=== PATIENT | female | born 1945 | race Caucasian/White ===

== ENCOUNTER → 2020-11-12 12:30 | Outpatient (BNVA) | payer BC, SELFPAY | PROVIDERS: Visit Provider Nurse Practitioner | DX: Z20.822 Contact with and (suspected) exposure to COVID-19 (principal) | CPT/HCPCS: 87635 ==

== ENCOUNTER 2021-06-17 13:13 | Outpatient (CLI) | payer MEDICARE, SELFPAY ==
--- NOTE | 2021-06-17 13:24 | XR_ITS ---
WS: [id number] SCREENING DEXA SCAN [employer] CLINICAL INFORMATION: POSTMENOPAUSAL COMPARISON: None. FINDINGS: The L1-L4 bone mineral density measures 0.948 g/cm2. This corresponds to a T score score of -1.9 and Z score of -0.1. Left femoral neck bone mineral density measures 0.870 g/cm2. This corresponds to a T score of -1.1 an d Z score of 0.8. Right femoral neck bone mineral density measures 0.713 g/cm2. This corresponds to a T score -2.3of an d Z score of -0.5. Mean femoral neck bone mineral density measures 0.792 g/cm2. This corresponds to a T score of -1.7 an d Z score of 0.2. XR/XR DEXA axial skeleton* [id number] IMPRESSION: Osteopenia Patient's FRAX calculated 10 year probability for major osteoporotic fracture i s 17.0 % and osteoporotic hip fracture is 5.9%.
== END 2021-06-17 13:14 | disposition home or self-care (01) ==
PROVIDERS: Visit Provider Nurse Practitioner
DX: Z78.0 Asymptomatic menopausal state (principal); M85.80 Other specified disorders of bone density and structure, unspecified site
CPT/HCPCS: 77080

== ENCOUNTER 2022-03-24 10:33 | Outpatient (CLI) | payer MEDICARE, SELFPAY ==
--- NOTE | 2022-03-24 10:40 | MM_ITS ---
WS: [id number] BILATERAL SCREENING DIGITAL BREAST TOMOSYNTHESIS MAMMOGRAM WITH CAD HISTORY: SCREENING COMPARISON: 09/21/2016 and 08/28/2013 Bilateral CC and MLO views with tomosynthesis and synthetic mammography submitted. Computer aided det ection analyzed. Breast composition: There are scattered areas of fibroglandular density. No suspicious masses, microc alcifications or architectural distortion. Asymmetries in each breast are stable. MM/[place] [id number] IMPRESSION: BI-RADS: 2-Benign FOLLOW UP: 1 Year Follow-up
== END 2022-03-24 10:34 | disposition home or self-care (01) ==
LOC: RAD 10:34
PROVIDERS: Visit Provider Physician Assistant
DX: Z12.31 Encounter for screening mammogram for malignant neoplasm of breast (principal)
CPT/HCPCS: 77063; 77067

== ENCOUNTER 2023-12-17 17:10 | Inpatient (IN) | payer MEDICARE, SELFPAY ==
[2023-12-17] VITALS (36 sets, daily range): BP systolic 98–215; BP diastolic 47–117; PULSE 75–99; RESP 16–32; TEMP 34.4–36; O2SAT 96–100; BMI 21.0
--- NOTE | 2023-12-17 17:18 | XRR_ITS ---
PROCEDURE INFORMATION: Exam: XR Chest Exam date and time: 12/17/2023 5:30 PM Age: 78 years old Clinical indication: Cough and dyspnea; Patient HX: Respiratory distress; Found unresponsive TECHNIQUE: Imaging protocol: Radiologic exam of the chest. Views: 1 view. COMPARISON: No relevant prior studies available. FINDINGS: Lungs: Unremarkable. No consolidation. Pleural spaces: Unremarkable. No pleural effusion. No pneumothorax. Heart/Mediastinum: Unremarkable. No cardiomegaly. Vasculature: The aorta is tortuous. Bones/joints: Unremarkable. XR/XR chest 1V portable [id number] IMPRESSION: No acute findings
--- NOTE | 2023-12-17 17:18 | CTR_ITS ---
PROCEDURE INFORMATION: Exam: CT Head Without Contrast Exam date and time: 12/17/2023 5:25 PM Age: 78 years old Clinical indication: Coma or unconsciousness; Additional info: Nonresponsive TECHNIQUE: Imaging protocol: Computed tomography of the head without contrast. Radiation optimization: All CT scans at this facility use at least one of these dose optimization techniques: automated exposure control; mA and/or kV adjustment per patient size (includes targeted exams where dose is matched to clinical indication); or iterative reconstruction. Other technique: STROKE PROTOCOL was implemented. COMPARISON: No relevant prior studies available. RADIATION DOSE METRICS: Total DLP (mGy-cm): 971.06 FINDINGS: Brain: There is age-related volume loss. There is mild periventricular white matter lucency consistent with mild chronic microvascular disease. There is no infarct. There is no hemorrhage or extra-axial collection. There is no mass. There is no cerebral edema. Cerebral ventricles: Ventricular size is proportionate to volume loss. Paranasal sinuses: Visualized sinuses are unremarkable. No fluid levels. Mastoid air cells: Visualized mastoid air cells are well aerated. Bones/joints: Unremarkable. No acute fracture. Soft tissues: Unremarkable. CT/CT head wo con* [id number] IMPRESSION: 1. Mild chronic microvascular disease. 2. No acute intracranial lesion or injury. ASSESSMENT: ASPECTS ([place] Stroke Program Early CT Score) is 10.
--- NOTE | 2023-12-17 17:19 | ED_ITS ---
HPI - General Adult 2 General: Chief complaint: Altered Mental Status Stated complaint: AMS; SOB Time Seen by Provider: 12/17/23 17:12 Source: EMS Mode of arrival: EMS History of Present Illness: 78-year-old female presents emergency ro om obtunded. EMS was called for a nonresponsive female in the bed who was short of breath on arrival there they found her with a white powder caked around her mouth in the pattern of a mask although she did not have a mask of any type on is also on the palm of her right hand. She was unresponsive except with aggressive painful stimuli and then only groaned. Her last known well according to EMS was at 11:00 this morning she presented here at 1710 6 hours and 10 minutes later we do not have family available to confirm initially. Review of Systems 2 General: Reports: ROS unobtainable due to medical condition and ROS unobtainable due to mental status PFS ED 2 PFSH: Medical History (Updated 12/17/23 @ 18:35 by Jerry Potter DO) Hypertension Diabetes mellitus Physical Exam 2 HENMT: COMMON NORMALS: normocephalic, atraumatic and hearing grossly normal bilaterally HEAD & SCALP: normocephalic and atraumatic Resp: COMMON NORMALS: normal respiratory effort, No retractions, No use of accessory muscles and clear to auscultation bilaterally AUSCULTATION: clear to auscultation bilaterally Cardio: COMMON NORMALS: regular rate, regular rhythm and No murmurs present (Cardio) RATE: regular rate RHYTHM: regular rhythm GI: COMMON NORMALS: Soft to palpation and No hepatosplenomegaly present A USCULTATION: Yes normoactive bowel sounds PALPATION: Yes Soft to palpation, No Tenderness to palpation present (GI), No Guarding due to palpation present (GI) and Yes No hepatosplenomegaly present Extremity: COMMON NORMALS: normal to inspection, capillary refill normal, no clubbing, cyanosis or edema, no calf tenderness and no pedal edema Neuro: PAMELA COMA SCALE: document GCS findings [place] coma scale eye opening: None [place] coma scale verbal response: None Pamela coma scale motor response: Extension Pamela coma scale total score: 4 Skin: COMMON NORMALS: no rashes or lesions noted GENERAL SKIN EXAM: no rashes or lesions noted Course 2 Vital Signs: Vital signs: Vital Signs Temperature 96.1 F L 12/17/23 17:11 Pulse Rate 96 12/17/23 17:11 Respiratory Rate 16 12/17/23 18:12 Blood Pressure 210/110 12/17/23 17:40 Pulse Oximetry 96 12/17/23 17:11 Oxygen Delivery Me thod Non-Rebreather 12/17/23 17:11 Oxygen Flow Rate 10 12/17/23 17:11 Fraction of Inspir ed Oxygen 100 12/17/23 18:12 MDM - General Adult Medical Decision Making Patient is completely obtunded. GCS of 4 discussed with the family they do want her intubated and [place] is a full code patient was intubated using vecuronium and etomidate and then started on drips of fentanyl and Versed. She did require push dose propofol shortly after intubation. Blood pressure improved slightly with hydralazine and then again once the drips were started however she remained significant hypertensive and she was started on nicardipine. She does oxygenate fairly well and her blood gas was normal. Patient intubated because of her GPS and evidence of her not controlling her airway she was coughing and sputtering multiple times prior to intubation. No complications with intubation discussed with hospitalist will admit she has been started on Vanco and Zosyn. Sputum cultures were aspirated through via the ET tube. We did note nearly 1400 mL urine output after placement of French. Lab Data I reviewed the patient's lab results. 12/17/23 16:58 12/17/23 16:[address] 12/17/23 17:18 IMPRESSION: 1. Mild chronic microvascular disease. 2. No acute intracranial lesion or injury. ASSESSMENT: ASPECTS ([place] Stroke Program Early CT Score) is 10. Laboratory Results WBC 24.90 10^3/uL (3.29-11.43) H 12/17/23 16:58 RBC 5.20 10^6/uL (3.85-5.65) 12/17/23 16:58 Hgb 16.10 g/dL (11.27-16.99) 12/17/23 16:58 Hct 47.4 % (36-47) H 12/17/23 16:58 MCV 91.2 fl (85-98) 12/17/23 16:58 MCH 31.0 pg (27-33) 12/17/23 16:58 MCHC 34.0 g/dL (30-55) 12/17/23 16:58 RDW 12.4 % (12.1-15.1) 12/17/23 16:58 Plt Count 285 10^3/cmm (157-399) 12/17/23 16:58 MPV 10.6 fL (7.4-10.4) H 12/17/23 16:58 Neut % (Auto) 92.0 % 12/17/23 16:58 Lymph % (Auto) 3.6 % 12/17/23 16:58 [place] % (Auto) 3.3 % 12/17/23 16:58 Eos % (Auto) 0.0 % 12/17/23 16:58 Baso % (Auto) 0.4 % 12/17/23 16:58 Neut # (Auto) 22.90 10^3/uL (1.8-7.7) H 12/17/23 16:58 Lymph # (Auto) 0.9 10^3/uL (0.8-4.8) 12/17/23 16:58 [place] # (Auto) 0.8 10^3/uL (0.2-0.9) 12/17/23 16:58 Eos # (Auto) 0.0 10^3/uL (0.0-0.8) 12/17/23 16:58 Baso # (Auto) 0.1 10^3/uL (0.0-0.1) 12/17/23 16:58 Nucleated RBC % (auto) 0 % 12/17/23 16:58 Nucleated RBCs # 0.0 /100WBC 12/17/23 16:58 Specimen Type Arterial 12/17/23 17:06 Sample Site Radial, right 12/17/23 17:06 ABG pH 7.37 (7.35-7.45) 12/17/23 17:06 ABG pCO2 35.2 mmHg (35-45) 12/17/23 17:06 ABG pO2 86.2 mmHg (80.0-100.0) 12/17/23 17:06 ABG PO2/FiO2 Ratio 0 12/17/23 17:06 ABG HCO3 20.4 mmol/L (22-26) L 12/17/23 17:06 ABG O2 Saturation 97.3 12/17/23 17:06 ABG Base Excess -4.1 mmol/L (-2.0-2.0) L 12/17/23 17:06 Rell Test Pos 12/17/23 17:06 A-a O2 Gradient 75.3 mmHg (5-10) H 12/17/23 17:06 Hematocrit 50.8 % (37-47) H 12/17/23 17:06 Hgb O2 Saturation 95.8 % (95-100) 12/17/23 17:06 Carboxyhemoglobin 0.9 %THgb (0.4-20.1) 12/17/23 17:06 Methemoglobin 0.7 % (0.4-1.5) 12/17/23 17:06 Total Hemoglobin 16.6 g/dL (12-16) H 12/17/23 17:06 Sodium 132.0 mmol/L (131-143) 12/17/23 17:06 Potassium 4.1 mmol/L (3.5-5.0) 12/17/23 17:06 Glucose 288.0 mg/dL (70-115) H 12/17/23 17:06 Ionized Calcium 1.1 mmol/L (1.1-1.4) 12/17/23 17:06 O2 Delivery Device Nrb 12/17/23 17:06 O2 Liters/Min 10.0 % 12/17/23 17:06 FiO2 100.0 % 12/17/23 17:06 Journeyman Sheet Metal Worker ID [place] 12/17/23 17:06 Sodium 130 mmol/L (136-145) L 12/17/23 16:58 Potassium 4.1 mmol/L (3.5-5.1) 12/17/23 16:58 Chloride 92 mmol/L (98-107) L 12/17/23 16:58 Carbon Dioxide 20 mmol/L (22-29) L 12/17/23 16:58 Anion Gap 22.1 (5-19) H 12/17/23 16:58 BUN 20 mg/dL (8-23) 12/17/23 16:58 Creatinine 1.0 mg/dL (0.5-0.9) H 12/17/23 16:58 GFR Calculation Not Reportable 12/17/23 16:58 Glucose 351 mg/dL (65-115) H 12/17/23 16:58 Calculated Osmolality 287 mOsm/kg (285-295) 12/17/23 16:58 Lactic Acid 3.1 mmol/L (0.5-2.2) H 12/17/23 16:58 Calcium 9.1 mg/dL (8.5-10.5) 12/17/23 16:58 Magnesium 2.0 mg/dL (1.7-2.3) 12/17/23 16:58 Total Bilirubin 0.9 mg/dL (0.15-1.2) 12/17/23 16:58 AST 27 U/L (0-32) 12/17/23 16:58 ALT 20 U/L (0-33) 12/17/23 16:58 Alkaline Phosphatase 103 U/L (35-105) 12/17/23 16:58 Creatine Kinase 81 U/L (26-192) 12/17/23 16:58 Troponin T Baseline 13 ng/L (0-10) H 12/17/23 16:58 Total Protein 7.4 g/dL (6.6-8.7) 12/17/23 16:58 Albumin 4.3 g/dL (3.5-5.2) 12/17/23 16:58 Globulin 3.1 g/dL (1.3-4.6) 12/17/23 16:58 Lipase 49 U/L (13-60) 12/17/23 16:58 Urine Color Colorless (Yellow) 12/17/23 17:35 Urine Appearance Clear (CLEAR) 12/17/23 17:35 Urine pH 7 (5-7) 12/17/23 17:35 Ur Specific [place] 1.010 (1.005-1.030) 12/17/23 17:35 Urine Protein 1+ (Negative) H 12/17/23 17:35 Urine Glucose (UA) 2+ (Normal) H 12/17/23 17:35 Urine Ketones 1+ (Negative) H 12/17/23 17:35 Urine Blood 3+ (Negative) H 12/17/23 17:35 Urine Nitrate Negative (Negative) 12/17/23 17:35 Urine Bilirubin Neg (Negative) 12/17/23 17:35 Urine Urobilinogen Norm mg/dL (Negative) 12/17/23 17:35 Ur Leukocyte Esterase Negative (Negative) 12/17/23 17:35 Urine RBC 25-40 /hpf (0-2) H 12/17/23 17:35 Urine WBC None /hpf (0-5) 12/17/23 17:35 Ur Squamous Epith Cells None /hpf (0-5) 12/17/23 17:35 Amorphous Sediment Not Reportable 12/17/23 17:35 Urine Bacteria Trace /hpf (NONE) 12/17/23 17:35 Serum Ketones Negative (Negative) 12/17/23 16:58 All radiology interpretation(s) finalized by discharge Critical Care Time 2 Critical Care Time: Critical Care Time: Yes Total Critical Care Time: 40 Attestation: The high probability of a clinically significant, sudden or life threatening deterioration of the patient's cardiovascular respiratory system(s) required my full and direct attention, intervention and personal management. The critical care time is as shown. This time is in addition to time spent performing any reported procedures but includes the following: [x] Data and vital sign review and interpretation [x] Patient assessment, examination and intervention [x] Documentation [x] Medication orders and management Discharge Plan Discharge Patient Disposition: Admitted As Inpatient Admit Provider: Evelia Garcia Clinical Impression: Diabetes mellitus, Sepsis, Aspiration pneumonia, Encephalopathy, Acute urinary retention Condition: Stable Coding Level of Care Code ED Shredding Machine Tender for Giacomo Mckenzie
--- NOTE | 2023-12-17 17:19 | ECG_ITS ---
[facility] Test Date: 2023-12-17 Pat Name: Lety Singh Department: Room: [facility]08 Gender: Female Activity Therapy Specialist: : 1945 Requested By: Jerry Morgan Order Number: [id number] Radha MD: Roberto Metzger M.D. Measurements Intervals [place] Rate: 95 P: 75 SC: 160 QRS: 67 QRSD: 85 T: 75 QT: 401 QTc: 505 Interpretive Statements SINUS RHYTHM MODERATE ST DEPRESSION [0.05+ mV ST DEPRESSION] No previous ECG available for comparison Electronically Signed On 12-18-2023 20:47:48 CDT by Roberto Metzger M.D. [email or web address] Biotechmer[facility] river oaksCono-Ckettering health miamisburgCognitum/store/Ov/[id number]
[2023-12-17 17:22] LABS: ABG PCO2 35.2 mmHg (35-45); ABG PH Result 7.37 (7.35-7.45); Alveolar-Arterial Oxygen Gradi 75.3 mmHg (5-10); Arterial Blood Gas Hematocrit 50.8 % (37-47); Base Excess ABG -4.1 mmol/L (-2.0-2.0); Blood Gas Allen Test Pos; Blood Gas Operator Identificat MONRO; Blood Gas Sample Site Radial, right; Blood Gas Sample Type Arterial; Carboxyhemoglobin 0.9 %THgb (0.4-20.1); HCO3 ABG 20.4 mmol/L (22-26); HGB O2 Sat 95.8 % (95-100); Ionized Calcium Level - ABG 1.1 mmol/L (1.1-1.4); Methemoglobin 0.7 % (0.4-1.5); Oxygen Device NRB; Oxygen Saturation ABG 97.3; PO2 ABG 86.2 mmHg (80.0-100.0); PO2 FiO2 Ratio Arterial Blood 0; Potassium Level - ABG 4.1 mmol/L (3.5-5.0); Total Hemoglobin 16.6 g/dL (12-16)
[2023-12-17 17:32] LABS: Basophils # 0.1 10^3/uL (0.0-0.1); Basophils % 0.4 %; Hematocrit 47.4 % (36-47); Lymphocytes # 0.9 10^3/uL (0.8-4.8); Lymphocytes % 3.6 %; Mean Corpuscular Volume 91.2 fl (85-98); Mean Platelet Volume 10.6 fL (7.4-10.4); Monocytes # 0.8 10^3/uL (0.2-0.9); Monocytes % 3.3 %; Nucleated Red Blood Cells % 0 %; Platelet Count 285 10^3/cmm (157-399); Red Cell Distribution Width 12.4 % (12.1-15.1)
[2023-12-17 17:48] LABS: Ketone (Acetest) Serum Negative (Negative)
[2023-12-17] MEDS: hyDRALAzine 20 mg/mL INJ 1 mL 5 MG IVP (17:52)
[2023-12-17 17:53] LABS: Lactic Sepsis W/Reflex 3.1 mmol/L (0.5-2.2)
[2023-12-17 17:56] LABS: Alanine Aminotransferase 20 U/L (0-33); Albumin Level 4.3 g/dL (3.5-5.2); Alkaline Phosphatase 103 U/L (35-105); Anion Gap 22.1 (5-19); Blood Urea Nitrogen 20 mg/dL (8-23); Calcium 9.1 mg/dL (8.5-10.5); Carbon Dioxide 20 mmol/L (22-29); Chloride 92 mmol/L (98-107); Creatine Phosphokinase 81 U/L (26-192); Globulin 3.1 g/dL (1.3-4.6); Glucose 351 mg/dL (65-115); Lipase 49 U/L (13-60); Osmolality Calculated 287 mOsm/kg (285-295); Sodium 130 mmol/L (136-145); Total Bilirubin 0.9 mg/dL (0.15-1.2); Total Protein 7.4 g/dL (6.6-8.7)
[2023-12-17 17:57] LABS: Aspartate Amino Transferase 27 U/L (0-32); Potassium 4.1 mmol/L (3.5-5.1)
[2023-12-17 17:58] LABS: Troponin(5th) Baseline 13 ng/L (0-10)
[2023-12-17 18:01] LABS: Add Urine Microscopic? YES; Bilirubin Urine Neg (Negative); Blood Urine 3+ (Negative); Glucose Urine UA 2+ (Normal); Ketones Urine 1+ (Negative); Leukocyte Esterase Urine Negative (Negative); Nitrate Urine Negative (Negative); Protein Urine 1+ (Negative); Urine Appearance Clear (CLEAR); Urine Color Colorless (Yellow); Urobilinogen Urine Norm (Negative); pH Urine 7 (5-7)
[2023-12-17 18:02] LABS: Add Urine Culture? Yes; Bacteria Urine TRACE /hpf; RBC Urine 25-40 /hpf (0-2)
[2023-12-17] MEDS: etomidate 2 mg/mL INJ SDV 10 mL 20 MG IVP (18:02)
--- NOTE | 2023-12-17 18:05 | XRR_ITS ---
PROCEDURE INFORMATION: Exam: XR Chest Exam date and time: 12/17/2023 6:10 PM Age: 78 years old Clinical indication: Device placement; Ett placement (vent status); Patient HX: Check S/P et and og placement; Additional info: Post intubation TECHNIQUE: Imaging protocol: Radiologic exam of the chest. Views: 1 view. COMPARISON: CR (CHEST, ) 12/17/2023 5:30 PM FINDINGS: Tubes, catheters and devices: The tip of the endotracheal tube is appropriately positioned 4 cm above the fco. The tip of the NG tube is at the level of the GE junction and should be advanced. Lungs: Unremarkable. No consolidation. Pleural spaces: Unremarkable. No pleural effusion. No pneumothorax. Heart/Mediastinum: Unremarkable. No cardiomegaly. Bones/joints: Unremarkable. XR/XR chest 1V portable [id number] IMPRESSION: 1. Endotracheal tube appropriately positioned 4 cm above fco. 2. Tip of NG tube at GE junction and should be advanced
[2023-12-17] MEDS: fentaNYL 1,000 MCG/100 ML BAG 2.5 MCG IV (18:06)
[2023-12-17] MEDS: midazolam hcl 100 MG/100 ML BAG IV (18:06)
[2023-12-17] MEDS: vecuronium 10 mg SDV IVP (18:10)
[2023-12-17] MEDS: propofol 10 mg/mL SDV 20 mL 100 MG IVP (18:26)
--- NOTE | 2023-12-17 18:27 | PC.NURSE ---
Medication Verification: 20mg of Etomidate @1802 and 10mg of Vecuronium @1803 verified with Melony Castillo RN.
--- NOTE | 2023-12-17 18:31 | P.HP_ITS ---
Providers/Chief Complaint 2 Admitting Physician: Evelia Garcia MD Chief Complaint: AMS; SOB History of Present Illness Lety Singh is a 78-year-old female with history of diabetes and hypertension was brought in by EMS for unresponsiveness at home. As per the ER physician, son was present at bedside and gave history that she was found at the edge of the bed unresponsive and covered with questionable vomit. She was last seen normal at 11 AM this morning by the son. He also reports that she is very active with her daily chores. He denied any recent history of fever cold cough chest pain shortness of breath nausea vomiting or diarrhea. On arrival in ER she was found to be breathless and Mouth and face and right hand was covered with white powder like material. As per the ER physician she was likely covered with vomit and had questionable aspiration. She was found to have a WBC count of 24.9 with left shift Lactate of 3.1 First set of troponins negative ABG 7.37/35/86/97% on nonrebreather, has anion gap metabolic acidosis She was attended and nonresponsive, hence with the family consent she was intubated and mechanically ventilated. She is on fentanyl and propofol drip. CT head showed no evidence of stroke Chest x-ray was mild bilateral pulmonary congestion, but no evidence of pneumonia Review of Systems 2 General: Reports: ROS unobtainable due to mental status Medications/Allergies Home Medications Medication Instructions Recorded Confirmed Last Taken Type No Known Home Medications 11/12/20 11/12/20 Unknown History Allergies Allergy/AdvReac Type Severity Reaction Status Date / Time No Known Allergies Allergy Verified 03/05/22 12:14 PFSH Acute 2 PFSH: Medical History Hypertension Diabetes mellitus Vitals/I&O/Wt Last Vital Signs Temp 96.1 F L 12/17/23 17:11 Pulse 96 12/17/23 17:11 Resp 16 12/17/23 18:12 BP 210/110 12/17/23 17:40 Pulse Ox 96 12/17/23 17:11 O2 Del Method Non-Rebreather 12/17/23 17:11 O2 Flow Rate 10 12/17/23 17:11 FiO2 100 12/17/23 18:12 Weight last 48 hrs Weight 61.235 kg Physical Exam 2 Narrative: She is obtunded and unresponsive, on mechanical ventilator. Chest clear to auscultation bilaterally Cardiovascular normal heart sounds no murmurs Abdomen soft non distended normal bowel sounds Extremities no edema noted bilaterally Data 12/17/23 16:58 12/17/23 16:58 Micro: Microbiology 12/17/23 18:10 Blood Culture - Preliminary Blood SPECIMEN COLLECTED 12/17/23 18:10 Blood Culture - Preliminary Blood SPECIMEN COLLECTED A&P Assessment and plan (1) Acute urinary retention: (2) Encephalopathy: (3) Aspiration pneumonia: (4) Sepsis: (5) Hypertension: (6) Diabetes mellitus: Plan 78-year-old female with history of hypertension and diabetes was brought in by EMS for unresponsiveness at home, covered in white powdery material and was found to have leukocytosis with left shift and lactate of 3.1 Likely secondary to aspiration pneumonia/severe sepsis Admit to ICU for continuous cardiopulmonary monitoring 1. Respiratory- Continue respiratory support with mechanical ventilator Continue fentanyl and propofol drip for sedation as per protocol 2. Cardiovascular- Hemodynamically stable for now on nicardipine drip to keep systolic blood pressure 1 40-1 50 IV fluid normal saline at 100 mm/h. Follow-up serial troponins 3. ID-in view of aspiration pneumonia and sepsis Will continue with IV vancomycin 1 g every 12 IV Zosyn 3.375 g every 8 hours. Follow-up urine culture 4. Nephrology Stable, will continue to monitor labs 5. Prophylaxis- GI with IV Pepcid 20 mg every 12 hours DVT with subcutaneous Lovenox 40 mg daily 6. Family not available to discuss the CODE STATUS but as per ER physician she is full code for now. Attestations 2 Medical Necessity Statement*: She needs continued hospitalization for more than 2 midnights for severe sepsis aspiration pneumonia post intubation and cardiopulmonary monitoring in ICU. She also needs IV fluids IV antibiotics Time Spent in Patient Care: 45 minutes Coding Level of Care Code Acute Code for [facility] Fwd Diagnoses Acute urinary retention R33.8 Encephalopathy G93.40 Aspiration pneumonia J69.0 Sepsis A41.9 Hypertension I10 Diabetes mellitus E11.9 Time Spent (min) 45
[2023-12-17] MEDS: piperacillin-tazobactam 3.375 GM in sodium chloride 0.9% (plus) 50 ML IV (18:39)
[2023-12-17] MEDS: nicardipine 20 MG/200 ML PREMIX 50 MG IV (18:48)
--- NOTE | 2023-12-17 18:49 | XRR_ITS ---
PROCEDURE INFORMATION: Exam: XR Chest Exam date and time: 12/17/2023 6:50 PM Age: 78 years old Clinical indication: Device placement; Ng tube; Additional info: Og adjustment TECHNIQUE: Imaging protocol: Radiologic exam of the chest. Views: 1 view. COMPARISON: CR (CHEST, ) 12/17/2023 6:10 PM FINDINGS: Tubes, catheters and devices: The endotracheal tube remains appropriately positioned. The NG tube has been advanced into the stomach and is appropriately positioned. Lungs: Overlying leads obscure right perihilar region. Possible area of consolidation in this area. Pleural spaces: Unremarkable. No pleural effusion. No pneumothorax. Heart/Mediastinum: Unremarkable. No cardiomegaly. Bones/joints: Unremarkable. XR/XR chest 1V portable [id number] IMPRESSION: 1. NG tube advanced into stomach. 2. Question right perihilar consolidation obscured by overlying leads.
--- NOTE | 2023-12-17 18:53 | PC.NURSE ---
This tech placed a trivedi catheter in at 1800, secured to left upper leg. Urine was not emptied until 1850 which resulted in 1225 mL of urine output. Bag secured below bed railings.
[2023-12-17] MEDS: vancomycin 1,000 MG in sodium chloride 0.9% 250 ML 250 MG IV (19:12)
[2023-12-17 19:16] LABS: Reflex Lactate Order REFLEX LACTIC ORDERD
--- NOTE | 2023-12-17 19:16 | PC.NURSE ---
Pt. was started on nicardipine briefly. Nicardipine stopped after blood pressure dropped quickly.
[2023-12-17 19:23] LABS: Troponin 5 2HR 15.68 ng/L (0-10); Troponin 5 2HR Delta 2.68 ABS# (0-10)
--- NOTE | 2023-12-17 20:00 | PC.NURSE ---
Immunizations Edyta Chamberlain, stated patient refused vaccinations for adventism reasons.
[2023-12-17] MEDS: sodium chloride 0.9% 1,000 ML 100 ML IV (20:17)
[2023-12-17] MEDS: famotidine 20 mg/2 mL INJ IVP (20:17)
[2023-12-17 20:43] LABS: Glucose Point of Care 350 mg/dL (70-110)
[2023-12-17 21:05] LABS: Lactic Acid level (Lactate) 3.6 mmol/L (0.5-2.2)
--- NOTE | 2023-12-17 21:19 | PC.NURSE ---
Prolonged QR EKG performed by RT resulted critical with a QT interval of 0.48. Patient remaining in sinus rhythm with no pvcs, pacs noted. Dr. Edwards notified.
[2023-12-17 21:20] LABS: ABG PCO2 37.4 mmHg (35-45); ABG PH Result 7.27 (7.35-7.45); Alveolar-Arterial Oxygen Gradi 15.1 mmHg (5-10); Arterial Blood Gas Hematocrit 47.3 % (37-47); Base Excess ABG -9.3 mmol/L (-2.0-2.0); Blood Gas Operator Identificat JB; Blood Gas Sample Site Brachial, left; Blood Gas Sample Type Arterial; Blood Gas Tidal Volume 0.35; Carboxyhemoglobin 0.6 %THgb (0.4-20.1); HCO3 ABG 16.9 mmol/L (22-26); HGB O2 Sat 99.3 % (95-100); Ionized Calcium Level - ABG 1.1 mmol/L (1.1-1.4); Methemoglobin 0.7 % (0.4-1.5); Oxygen Device VENT; Oxygen Saturation ABG > 100.0; PO2 FiO2 Ratio Arterial Blood 0; Potassium Level - ABG 4.3 mmol/L (3.5-5.0); Total Hemoglobin 15.4 g/dL (12-16)
--- NOTE | 2023-12-17 21:55 | PC.NURSE ---
Patient's temperature was 94.0 rectally, elisa hugger blanket, along with heated blankets and a rectal thermometer probe were placed. Patient's blood sugar was 350 and OG noted to have ~100mL of output with low intermittent suction. Dr. Edwards notified of the above findings and gave telephone orders to recheck blood glucose in 2 hours.
--- NOTE | 2023-12-17 22:34 | PC.NURSE ---
Physician Communication Dr. Edwards at bedside. Verbal orders received to discontinue maintenance NS fluid and to start subq medium dose sliding scale Q6HR now. See MAR for details.
[2023-12-17 22:46] LABS: Glucose Point of Care 386 mg/dL (70-110)
[2023-12-17] MEDS: insulin lispro 100 unit/1 mL SUBCUT (22:54)
--- NOTE | 2023-12-17 23:18 | ECG_ITS ---
[facility] Test Date: 2023-12-17 Pat Name: Lety Snigh Department: Room: [facility]08 Gender: Female News Agent: : 1945 Requested By: Jerry Morgan Order Number: [id number] Radha MD: Roberto Metzger M.D. Measurements Intervals [place] Rate: 78 P: 79 [place]: 170 QRS: 73 QRSD: 90 T: 70 QT: 488 QTc: 557 Interpretive Statements SINUS RHYTHM PROLONGED QT INTERVAL CRITICAL TEST RESULT Compared to ECG 12/17/2023 17:19:21 Prolonged QT interval now present ST (T wave) deviation no longer present Electronically Signed On 12-18-2023 20:56:51 CDT by Roberto Metzger M.D. [email or web address].Conductormemorial hospital at gulfportGlobal Bay Mobilekindred hospital lima.[email or web address]/store/[id number]
[2023-12-17 23:22] LABS: Troponin 5 6HR 18.92 ng/L (0-10); Troponin 5 6HR Delta 5.92 ng/L (0-12)
--- NOTE | 2023-12-17 23:22 | ECG_ITS ---
[facility] Test Date: 2023-12-17 Pat Name: Lety Singh Department: Room: [facility]08 Gender: Female Neuro Ophthalmologist: : 1945 Requested By: Jerry Morgan Order Number: [id number] Radha MD: Roberto Metzger M.D. Measurements Intervals [place] Rate: 75 P: 81 [place]: 167 QRS: 73 QRSD: 79 T: 69 QT: 382 QTc: 427 Interpretive Statements SINUS RHYTHM NONSPECIFIC T-WAVE ABNORMALITY Prolonged QTc of 550 ms Compared to ECG 12/17/2023 21:02:33 No significant chest Electronically Signed On 12-18-2023 20:58:32 CDT by Roberto Metzger M.D. [id number]
[2023-12-18] VITALS (76 sets, daily range): BP systolic 86–216; BP diastolic 48–124; PULSE 63–100; RESP 10–20; TEMP 36.2–38.4; O2SAT 95–100; BMI 21.4
[2023-12-18 01:24] LABS: Glucose Point of Care 331 mg/dL (70-110)
[2023-12-18] MEDS: chlorhexidine gluconate 4% Btl 118 mL 1 APPLIC TOPICAL (02:59)
[2023-12-18 03:56] LABS: Glucose Point of Care 359 mg/dL (70-110)
[2023-12-18 03:59] LABS: Basophils # 0.1 10^3/uL (0.0-0.1); Basophils % 0.2 %; Hematocrit 45.2 % (36-47); Lymphocytes # 0.7 10^3/uL (0.8-4.8); Lymphocytes % 2.7 %; Mean Corpuscular HGB Conc 33.2 g/dL (30-55); Mean Corpuscular Hemoglobin 30.7 pg (27-33); Mean Corpuscular Volume 92.4 fl (85-98); Mean Platelet Volume 10.5 fL (7.4-10.4); Monocytes # 1.2 10^3/uL (0.2-0.9); Monocytes % 4.6 %; Neutrophils # 23.76 10^3/uL (1.8-7.7); Neutrophils % 91.5 %; Nucleated Red Blood Cells % 0 %; Platelet Count 260 10^3/cmm (157-399); Red Blood Count 4.89 10^6/uL (3.85-5.65); Red Cell Distribution Width 12.7 % (12.1-15.1); White Blood Count 25.97 10^3/uL (3.29-11.43)
[2023-12-18] MEDS: insulin lispro 100 unit/1 mL SUBCUT ×2 (03:59→11:31)
[2023-12-18 04:11] LABS: INR 1.02 (0.8-1.2)
[2023-12-18 04:17] LABS: Alanine Aminotransferase 17 U/L (0-33); Albumin Level 3.8 g/dL (3.5-5.2); Alkaline Phosphatase 83 U/L (35-105); Anion Gap 18.3 (5-19); Aspartate Amino Transferase 20 U/L (0-32); Blood Urea Nitrogen 23 mg/dL (8-23); Calcium 8.5 mg/dL (8.5-10.5); Carbon Dioxide 19 mmol/L (22-29); Chloride 101 mmol/L (98-107); Creatinine Clr Calc Pharmacy 37.4082; Globulin 2.7 g/dL (1.3-4.6); Glucose 368 mg/dL (65-115); Lactic Sepsis W/Reflex 2.5 mmol/L (0.5-2.2); Osmolality Calculated 297 mOsm/kg (285-295); Potassium 4.3 mmol/L (3.5-5.1); Sodium 134 mmol/L (136-145); Total Bilirubin 1.1 mg/dL (0.15-1.2); Total Protein 6.5 g/dL (6.6-8.7)
[2023-12-18 04:23] LABS: Procalcitonin 4.31 ng/mL (0-0.5)
[2023-12-18 04:56] LABS: ABG PCO2 36.3 mmHg (35-45); ABG PH Result 7.37 (7.35-7.45); Alveolar-Arterial Oxygen Gradi 7.6 mmHg (5-10); Arterial Blood Gas Hematocrit 48.1 % (37-47); Base Excess ABG -3.7 mmol/L (-2.0-2.0); Blood Gas Operator Identificat JB; Blood Gas Sample Site Brachial, left; Blood Gas Sample Type Arterial; Blood Gas Tidal Volume 0.35; Carboxyhemoglobin 0.8 %THgb (0.4-20.1); HGB O2 Sat 98.6 % (95-100); Ionized Calcium Level - ABG 1.1 mmol/L (1.1-1.4); Methemoglobin 0.7 % (0.4-1.5); Oxygen Device VENT; Oxygen Saturation ABG > 100.0; PO2 FiO2 Ratio Arterial Blood 0; Potassium Level - ABG 4.2 mmol/L (3.5-5.0); Total Hemoglobin 15.7 g/dL (12-16)
--- NOTE | 2023-12-18 05:12 | PC.NURSE ---
Patient's urine output was 450mL in total for the evening, BUN and Safety Grooving Machine Operator increased from previous lab draw, and mucous membranes seemed slightly dry. Dr. Edwards was notified and gave telephone orders for a 1000mL bolus of NS ONCE.
[2023-12-18 05:37] LABS: Reflex Lactate Order REFLEX LACTIC ORDERD
[2023-12-18] MEDS: sodium chloride 0.9% 1,000 ML 999 ML IV ×2 (05:47→20:50)
[2023-12-18] MEDS: famotidine 20 mg/2 mL INJ IVP ×2 (06:09→18:08)
--- NOTE | 2023-12-18 07:14 | PC.NURSE ---
frequent cough noted eyes open follows staff with eyes oral care done sx and reposition versed restarted at 1 mg
[2023-12-18] MEDS: enoxaparin 40 mg/0.4 mL Syringe SUBCUT (08:10)
[2023-12-18] MEDS: vancomycin 1,000 MG in sodium chloride 0.9% 250 ML 250 MG IV ×2 (08:10→19:43)
[2023-12-18] MEDS: piperacillin-tazobactam 3.375 GM in sodium chloride 0.9% (plus) 50 ML IV ×3 (08:53→23:07)
--- NOTE | 2023-12-18 09:51 | PC.PHAR ---
pt is intubated unable to verify medications-medications entered are what ext shows has been filled recently
[2023-12-18 10:57] LABS: Troponin T (5th) Once 22 ng/L (0-10)
--- NOTE | 2023-12-18 11:05 | P.PN_ITS ---
Subjective 2 Subjective: No acute overnight events noted. Seen at bedside this morning. Still sedated on Versed and fentanyl She is off nicardipine drip, blood pressure stable for now Medications: Reviewed: Yes Vitals/I&O/Wt Last Vital Signs Temp 99.9 F H 12/18/23 05:45 Pulse 69 12/18/23 10:00 Resp 16 12/18/23 08:00 BP 140/71 12/18/23 10:00 Pulse Ox 98 12/18/23 10:00 O2 Del Method Mechanical Ventilation 12/18/23 05:45 O2 Flow Rate 10 12/17/23 17:11 FiO2 25 12/18/23 08:00 12/17/23 12/18/23 12/18/23 22:59 06:59 14:59 Intake Total 564.067 / 731.563 1075.808 / 1599.875 252.133 / 252.133 Output Total 1225 / 1225 500 / 1725 Balance -660.933 / -660.933 535.808 / -125.125 252.133 / 252.133 Weight last 48 hrs Weight 58.315 kg Weight 57.351 kg Weight 61.235 kg Physical Exam 2 Narrative: She is unresponsive, on mechanical ventilator. Chest clear to auscultation bilaterally Cardiovascular normal heart sounds no murmurs Abdomen soft non distended normal bowel sounds Extremities no edema noted bilaterally Urinary Catheter Management: French: Cath Placed During This Visit: yes Reason for Continuing Indwelling Catheter: Accurate Measurement of Urinary Output in Critically Ill Patients Urinary Catheter Date of Insertion: 12/17/23 Urinary Catheter Time of Insertion: 18:55 Data 12/18/23 03:19 12/18/23 03:19 Micro: Microbiology 12/17/23 18:10 Blood Culture - Preliminary Blood SPECIMEN COLLECTED 12/17/23 18:10 Blood Culture - Preliminary Blood SPECIMEN COLLECTED A&P Assessment and plan (1) Acute urinary retention: (2) Encephalopathy: (3) Aspiration pneumonia: (4) Sepsis: (5) Hypertension: (6) Diabetes mellitus: Plan 78-year-old female with history of hypertension and diabetes was brought in by EMS for unresponsiveness at home, covered in white powdery material and was found to have leukocytosis with left shift and lactate of 3.1 Likely secondary to aspiration pneumonia/severe sepsis Admit to ICU for continuous cardiopulmonary monitoring 1. Respiratory- Continue respiratory support with mechanical ventilator Continue fentanyl and Versed drip for sedation as per protocol Plan to taper Versed for consciousness 2. Cardiovascular- Hemodynamically stable for now IV fluid normal saline at 100 mm/h. Follow-up second set of troponins 3. ID-in view of aspiration pneumonia and sepsis Chest x-ray consistent with questionable right perihilar pneumonia. Will continue with IV vancomycin 1 g every 12 IV Zosyn 3.375 g every 8 hours. Follow-up urine culture Recheck chest x-ray in a.m. 4. Nephrology Stable, will continue to monitor labs 5. Prophylaxis- GI with IV Pepcid 20 mg every 12 hours DVT with subcutaneous Lovenox 40 mg daily 6. Family not available to discuss the CODE STATUS but as per ER physician she is full code for now. 7. Will discuss the current plan of care and prognosis with the family when available at bedside Attestations 2 Medical Necessity Statement*: She needs continued hospitalization for more than 2 midnights for management of severe sepsis ,respiratory support with mechanical ventilation, IV fluids and antibiotics, telemetry monitoring. Time Spent in Patient Care: 20 minutes Coding Level of Care Code Acute Code for [facility] Fwd Diagnoses Acute urinary retention R33.8 Encephalopathy G93.40 Aspiration pneumonia J69.0 Sepsis A41.9 Hypertension I10 Diabetes mellitus E11.9 Time Spent (min) 20
[2023-12-18] MEDS: dexmedeTOMIDine 0.9 % NaCL 400 MCG/100 ML PREMIX 1.45999999999999996 MCG IV (11:24)
--- NOTE | 2023-12-18 11:26 | PC.NURSE ---
off all sedation and now awake will fallow directions and squeze hands, precedex gtt started at this time
[2023-12-18 11:32] LABS: Glucose Point of Care 143 mg/dL (70-110)
[2023-12-18] MEDS: metoprolol succinate ER (24 HR) 25 mg Tablet PO (12:28)
[2023-12-18] MEDS: lisinopril 5 mg Tablet PO (12:28)
[2023-12-18 17:59] LABS: Glucose Point of Care 107 mg/dL (70-110)
--- NOTE | 2023-12-18 18:13 | PC.NURSE ---
sitting straight up in bed attempting to pull et tube out at this time responds to all questions increasing sedation at this time
[2023-12-18] MEDS: acetaminophen 650 mg/20.3 mL UDC 1000 MG PO (20:51)
[2023-12-18 23:07] LABS: Glucose Point of Care 111 mg/dL (70-110)
[2023-12-18] MEDS: fentaNYL 1,000 MCG/100 ML BAG 7.5 MCG IV (23:11)
--- NOTE | 2023-12-18 23:55 | PC.NURSE ---
Patient's blood pressure was trending down with a MAP of 60 and a total urine output of [address] Edwards was contacted and gave telephone orders for a 1L bolus of NS ONCE. Her temperature was also elevated at 101.1, Dr Edwards ordered liquid Tylenol.
[2023-12-19] VITALS (55 sets, daily range): BP systolic 85–218; BP diastolic 48–113; PULSE 56–145; RESP 9–25; TEMP 36.5–37.7; O2SAT 95–100; BMI 21.4
[2023-12-19] MEDS: chlorhexidine gluconate 4% Btl 118 mL 1 APPLIC TOPICAL (01:37)
[2023-12-19 04:05] LABS: Glucose Point of Care 124 mg/dL (70-110)
[2023-12-19 05:02] LABS: ABG PCO2 35.5 mmHg (35-45); Alveolar-Arterial Oxygen Gradi 2.4 mmHg (5-10); Arterial Blood Gas Hematocrit 43.2 % (37-47); Blood Gas Operator Identificat JB; Blood Gas Sample Site Brachial, left; Blood Gas Sample Type Arterial; Blood Gas Tidal Volume 0.35; Carboxyhemoglobin 1.1 %THgb (0.4-20.1); HCO3 ABG 17.6 mmol/L (22-26); HGB O2 Sat 97.2 % (95-100); Ionized Calcium Level - ABG 1.2 mmol/L (1.1-1.4); Methemoglobin 0.7 % (0.4-1.5); Oxygen Device VENT; Oxygen Saturation ABG 98.9; PO2 FiO2 Ratio Arterial Blood 0; Total Hemoglobin 14.1 g/dL (12-16)
[2023-12-19 05:34] LABS: Basophils # 0.1 10^3/uL (0.0-0.1); Basophils % 0.3 %; Hematocrit 42.4 % (36-47); Lymphocytes % 5.5 %; Mean Corpuscular HGB Conc 32.8 g/dL (30-55); Mean Corpuscular Volume 94.4 fl (85-98); Mean Platelet Volume 10.6 fL (7.4-10.4); Monocytes # 0.9 10^3/uL (0.2-0.9); Monocytes % 4.7 %; Neutrophils # 16.22 10^3/uL (1.8-7.7); Neutrophils % 88.8 %; Nucleated Red Blood Cells % 0 %; Platelet Count 207 10^3/cmm (157-399); Red Blood Count 4.49 10^6/uL (3.85-5.65); Red Cell Distribution Width 13.2 % (12.1-15.1); White Blood Count 18.26 10^3/uL (3.29-11.43)
[2023-12-19] MEDS: dexmedeTOMIDine 0.9 % NaCL 400 MCG/100 ML PREMIX 2.91999999999999993 MCG IV (05:34)
[2023-12-19 05:50] LABS: INR 1.09 (0.8-1.2)
[2023-12-19 05:51] LABS: Alanine Aminotransferase 14 U/L (0-33); Albumin Level 3.2 g/dL (3.5-5.2); Alkaline Phosphatase 67 U/L (35-105); Anion Gap 13.4 (5-19); Aspartate Amino Transferase 14 U/L (0-32); Blood Urea Nitrogen 29 mg/dL (8-23); Calcium 8.3 mg/dL (8.5-10.5); Carbon Dioxide 20 mmol/L (22-29); Chloride 108 mmol/L (98-107); Creatinine Clr Calc Pharmacy 34.5223; Globulin 2.7 g/dL (1.3-4.6); Glucose 139 mg/dL (65-115); Magnesium 2.3 mg/dL (1.7-2.3); Osmolality Calculated 292 mOsm/kg (285-295); Potassium 4.4 mmol/L (3.5-5.1); Sodium 137 mmol/L (136-145); Total Bilirubin 0.7 mg/dL (0.15-1.2); Total Protein 5.9 g/dL (6.6-8.7)
[2023-12-19] MEDS: sodium chloride 0.9% 500 ML 999 ML IV (05:59)
--- NOTE | 2023-12-19 06:09 | XRR_ITS ---
PROCEDURE INFORMATION: Exam: XR Chest Exam date and time: 12/19/2023 5:11 AM Age: 78 years old Clinical indication: Condition or disease; Lung condition and disease; Pneumonia and respiratory failure; Status not specified; Patient HX: Resp failure. Intubated. TECHNIQUE: Imaging protocol: Radiologic exam of the chest. Views: 1 view. COMPARISON: CR (CHEST, ) 12/17/2023 6:50 PM FINDINGS: Tubes, catheters and devices: Endotracheal tube and nasogastric tube in satisfactory position. Lungs: Patchy airspace opacity right perihilar region. No consolidation. Pleural spaces: Unremarkable. No pleural effusion. No pneumothorax. Heart/Mediastinum: Unremarkable. No cardiomegaly. Bones/joints: Unremarkable. XR/XR chest 1V portable [id number] IMPRESSION: Patchy airspace opacity right perihilar region. No change when compared to the prior examination
[2023-12-19] MEDS: famotidine 20 mg/2 mL INJ IVP ×2 (06:15→19:39)
--- NOTE | 2023-12-19 06:26 | PC.NURSE ---
Patient's BP was trending down with MAPs in the 60s. A cheetah was done and resulted 24% SVI, fluid responsive. Urine output totalled [address] Edwards was contacted and gave telephone orders to give a 500mL bolus of NS ONCE.
[2023-12-19] MEDS: vancomycin 1,000 MG in sodium chloride 0.9% 250 ML 25 MG IV (08:49)
[2023-12-19] MEDS: piperacillin-tazobactam 3.375 GM in sodium chloride 0.9% (plus) 50 ML IV ×2 (08:55→17:18)
[2023-12-19] MEDS: enoxaparin 40 mg/0.4 mL Syringe SUBCUT (08:58)
[2023-12-19] MEDS: guaiFENesin 600 mg Tablet PO (09:11)
[2023-12-19 11:08] LABS: Glucose Point of Care 111 mg/dL (70-110)
--- NOTE | 2023-12-19 12:47 | PC.SOCIAL ---
IMM Update Pg. 2 of IMM updated; copy provided at bedside.
--- NOTE | 2023-12-19 13:51 | P.PN_ITS ---
Subjective 2 Subjective: Patient seen at bedside this morning. She is doing well, awakening more, seems to be responsive to verbal commands. Suctioning done at bedside by the respiratory therapist, she has mild secretions, she is doing well on pressure support as per the therapist, has been hemodynamically stable. Spoke to family at bedside, counseled and educated about the plan of care. Medications: Reviewed: Yes Vitals/I&O/Wt Last Vital Signs Temp 99.5 F 12/19/23 12:30 Pulse 62 12/19/23 12:30 Resp 9 L 12/19/23 13:09 BP 136/68 12/19/23 12:30 Pulse Ox 95 12/19/23 13:09 O2 Del Method Mechanical Ventilation 12/19/23 12:30 O2 Flow Rate 10 12/17/23 17:11 FiO2 25 12/19/23 13:09 12/18/23 12/19/23 12/19/23 22:59 06:59 14:59 Intake Total 69.190 / 774.397 1058.477 / 1865.842 281.655 / 281.655 Output Total 300 / 300 250 / 550 150 / 150 Balance -230.810 / 85.365 1230.477 / 1315.842 131.655 / 131.655 Weight last 48 hrs Weight 58.513 kg Weight 58.315 kg Weight 57.351 kg Weight 61.235 kg Physical Exam 2 Narrative: She is awake minimally alert, on mechanical ventilator. Chest clear to auscultation bilaterally Cardiovascular normal heart sounds no murmurs Abdomen soft non distended normal bowel sounds Extremities no edema noted bilaterally Urinary Catheter Management: French: Cath Placed During This Visit: yes Reason for Continuing Indwelling Catheter: Accurate Measurement of Urinary Output in Critically Ill Patients Urinary Catheter Date of Insertion: 12/17/23 Urinary Catheter Time of Insertion: 18:55 Data 12/19/23 05:15 12/19/23 05:15 Micro: Microbiology 12/17/23 18:20 Gram Stain - Final Sputum - Endotracheal Wash Sputum Culture - Final 12/17/23 17:35 Urine Culture - Final Urine,Clean Catch 12/17/23 18:10 Blood Culture - Preliminary Blood NEGATIVE TO DATE 12/17/23 18:10 Blood Culture - Preliminary Blood NEGATIVE TO DATE A&P Assessment and plan (1) Acute urinary retention: (2) Encephalopathy: (3) Aspiration pneumonia: (4) Sepsis: (5) Hypertension: (6) Diabetes mellitus: Plan 78-year-old female with history of hypertension and diabetes was brought in by EMS for unresponsiveness at home, covered in white powdery material and was found to have leukocytosis with left shift and lactate of 3.1 Likely secondary to aspiration pneumonia/severe sepsis Admited to ICU for continuous cardiopulmonary monitoring 1. Respiratory- Continue respiratory support with mechanical ventilator, she has been on weaning trial since this morning. taper off precedex drip to regain consciousness 2. Cardiovascular- Hemodynamically stable for now IV fluid normal saline at 100 mm/h. 3. ID-in view of aspiration pneumonia and sepsis Chest x-ray consistent with right perihilar pneumonia which is more prominent now, responding to current antibiotics Will continue with IV vancomycin 1 g every 12 IV Zosyn 3.375 g every 8 hours. blood and urine cultures negative. follow up final sputum cultures. 4. Nephrology Stable, will continue to monitor labs 5. Prophylaxis- GI with IV Pepcid 20 mg every 12 hours DVT with subcutaneous Lovenox 40 mg daily 6. she is full code for now. 7. She is NPO for now. Attestations 2 Medical Necessity Statement*: She needs continued hospitalization for more than 2 midnights for management of severe sepsis ,respiratory support , IV fluids and antibiotics, telemetry monitoring. Time Spent in Patient Care: 20 minutes Coding Level of Care Code Acute Code for [facility] Fwd Diagnoses Acute urinary retention R33.8 Encephalopathy G93.40 Aspiration pneumonia J69.0 Sepsis A41.9 Hypertension I10 Diabetes mellitus E11.9 Time Spent (min) 20
[2023-12-19] MEDS: sodium chloride 0.9% 1,000 ML 100 ML IV (14:07)
[2023-12-19 17:24] LABS: Glucose Point of Care 101 mg/dL (70-110)
[2023-12-19] MEDS: lanolin oint 7 gm 1 APPLIC TOPICAL (17:31)
[2023-12-19] MEDS: metoprolol succinate ER (24 HR) 25 mg Tablet PO (17:32)
[2023-12-19] MEDS: lisinopril 5 mg Tablet PO (17:32)
--- NOTE | 2023-12-19 17:50 | PC.NURSE ---
Patient revealed to nurse that her hospitalization was caused by a suicide attempt. The white substance found around her mouth was likely dried vomit containing sleeping pills which she intentionally overdosed on. Nurse alerted Dr Garcia. Received order for a 1:1 sitter and a psych consult.
--- NOTE | 2023-12-19 19:49 | PC.NURSE ---
Late note.... at 1527, patient was extubated to 2 L nasal cannula. patient is alert to person and place, but confused on evenets leading to hospitalization and is slightly agitated.
--- NOTE | 2023-12-19 19:50 | PC.NURSE ---
patient's bp has become elevated insce discontinuation of precedex and extubation she did not receive morning BP meds due to recent hypotension. Nurse alerted Dr reardon and received orders for one time doses of missed morning BP meds. See mar
[2023-12-19 19:59] LABS: Vancomycin Trough 21.8 ug/mL (10-15)
--- NOTE | 2023-12-19 21:16 | PC.NURSE ---
Addendum entered by Ben Lynn RN 12/19/23 21:17: Waste witnessed by Ben VEGA. Original Note: Wasted left over precedex, fentanyl, and versed as noted per MAR. Witnessed by Ben VEGA.
[2023-12-19] MEDS: vancomycin 750 MG in sodium chloride 0.9% 250 ML 250 MG IV (21:24)
[2023-12-19 23:31] LABS: Glucose Point of Care 107 mg/dL (70-110)
[2023-12-20] VITALS (35 sets, daily range): BP systolic 150–200; BP diastolic 76–119; PULSE 80–125; RESP 16–18; TEMP 36.7–37.7; O2SAT 95–98
[2023-12-20] MEDS: sodium chloride 0.9% 1,000 ML 100 ML IV ×3 (00:17→20:00)
[2023-12-20] MEDS: piperacillin-tazobactam 3.375 GM in sodium chloride 0.9% (plus) 50 ML IV ×4 (00:18→23:33)
[2023-12-20] MEDS: hyDRALAzine 25 mg Tablet PO ×3 (02:06→21:37)
[2023-12-20 05:16] LABS: Basophils # 0.1 10^3/uL (0.0-0.1); Basophils % 0.6 %; Eosinophils % 0.1 %; Hematocrit 39.6 % (36-47); Lymphocytes # 1.4 10^3/uL (0.8-4.8); Lymphocytes % 7.7 %; Mean Corpuscular HGB Conc 33.1 g/dL (30-55); Mean Corpuscular Hemoglobin 30.5 pg (27-33); Mean Corpuscular Volume 92.1 fl (85-98); Mean Platelet Volume 10.5 fL (7.4-10.4); Monocytes # 1.3 10^3/uL (0.2-0.9); Monocytes % 7.4 %; Neutrophils # 14.93 10^3/uL (1.8-7.7); Neutrophils % 83.4 %; Nucleated Red Blood Cells % 0 %; Platelet Count 245 10^3/cmm (157-399); Red Cell Distribution Width 13.8 % (12.1-15.1); White Blood Count 17.87 10^3/uL (3.29-11.43)
[2023-12-20 05:36] LABS: INR 0.94 (0.8-1.2)
[2023-12-20 05:46] LABS: Alanine Aminotransferase 12 U/L (0-33); Albumin Level 3.1 g/dL (3.5-5.2); Alkaline Phosphatase 70 U/L (35-105); Anion Gap 16.7 (5-19); Aspartate Amino Transferase 13 U/L (0-32); Blood Urea Nitrogen 26 mg/dL (8-23); Calcium 8.3 mg/dL (8.5-10.5); Carbon Dioxide 17 mmol/L (22-29); Chloride 111 mmol/L (98-107); Creatinine Clr Calc Pharmacy 43.0519; Globulin 2.6 g/dL (1.3-4.6); Glucose 111 mg/dL (65-115); Osmolality Calculated 297 mOsm/kg (285-295); Potassium 3.7 mmol/L (3.5-5.1); Sodium 141 mmol/L (136-145); Total Bilirubin 0.7 mg/dL (0.15-1.2); Total Protein 5.7 g/dL (6.6-8.7)
[2023-12-20 06:21] LABS: Glucose Point of Care 91 mg/dL (70-110)
[2023-12-20] MEDS: famotidine 20 mg/2 mL INJ IVP ×2 (06:23→17:09)
[2023-12-20 07:06] LABS: Glucose Point of Care 95 mg/dL (70-110)
[2023-12-20] MEDS: enoxaparin 40 mg/0.4 mL Syringe SUBCUT (07:58)
[2023-12-20] MEDS: metoprolol succinate ER (24 HR) 25 mg Tablet PO (07:59)
[2023-12-20] MEDS: lisinopril 5 mg Tablet PO (07:59)
[2023-12-20] MEDS: vancomycin 750 MG in sodium chloride 0.9% 250 ML 250 MG IV ×2 (09:53→21:40)
--- NOTE | 2023-12-20 10:31 | PC.NURSE ---
pt cooperative and oriented this am no c/o pain am breakfast with good appititie noted grandson and grandaughter called concerned about when she is discharged home into care of son.. number to director of social work Cheli [phone] cachorro [phone]
[2023-12-20 11:00] LABS: Glucose Point of Care 191 mg/dL (70-110)
[2023-12-20] MEDS: insulin lispro 100 unit/1 mL SUBCUT ×3 (11:56→21:57)
--- NOTE | 2023-12-20 12:36 | PC.NURSE ---
noted elevated blood pressure ,,, po medication given assisted up to bathroom soft bm noted
--- NOTE | 2023-12-20 15:40 | P.PN_ITS ---
Subjective 2 Subjective: No acute overnight events noted. Patient seen bedside this morning, she gives history of overdosing herself with sleeping pills, medications ongoing, she admits to having suicidal tendency and depression. Spoke to her about the psychiatry consult she agrees to follow the medical management for depression. She is doing well otherwise. No new complaints noted Medications: Reviewed: Yes Vitals/I&O/Wt Last Vital Signs Temp 98.1 F 12/20/23 11:42 Pulse 91 12/20/23 14:00 Resp 18 12/20/23 07:45 BP 200/85 12/20/23 14:00 Pulse Ox 98 12/20/23 12:00 O2 Del Method Room Air 12/20/23 07:45 O2 Flow Rate 0 12/20/23 05:30 FiO2 25 12/19/23 13:56 12/20/23 12/20/23 12/20/23 06:59 14:59 22:59 Intake Total 1300 / 6179.965 1514 / 1630 Output Total 300 / 1150 1100 / 1100 Balance 1000 / 541.655 530 / 530 Weight last 48 hrs Weight 63.957 kg Weight 58.513 kg Physical Exam 2 Narrative: She is awake, alert and oriented x 3, not in acute distress Chest clear to auscultation bilaterally Cardiovascular normal heart sounds no murmurs Abdomen soft non distended normal bowel sounds Extremities no edema noted bilaterally Urinary Catheter Management: French: Cath Placed During This Visit: yes Reason for Continuing Indwelling Catheter: Accurate Measurement of Urinary Output in Critically Ill Patients Urinary Catheter Date of Insertion: 12/17/23 Urinary Catheter Time of Insertion: 18:55 Data 12/20/23 04:09 12/20/23 04:09 Micro: Microbiology 12/17/23 18:20 Gram Stain - Final Sputum - Endotracheal Wash Sputum Culture - Final A&P Assessment and plan (1) Acute urinary retention: (2) Encephalopathy: (3) Aspiration pneumonia: (4) Sepsis: (5) Hypertension: (6) Diabetes mellitus: (7) Depression: (8) Suicidal behavior with attempted self-injury: Plan 78-year-old female with history of hypertension and diabetes was brought in by EMS for unresponsiveness at home, covered in white powdery material and was found to have leukocytosis with left shift and lactate of 3.1 Likely secondary to aspiration pneumonia/severe sepsis She is s/p extubation and doing well. 1. Sepsis secondary to pneumonia- Will continue with IV vancomycin and Zosyn for now. Leukocytosis improving, continue to monitor CBC 2. Depression and suicidal ideation- Continue one-to-one observation Follow-up psychiatric consult She might need [facility] psych for further management of depression and suicidal ideation. 3.HTN-continue home dose of lisinopril 5 mg daily Metoprolol 25 mg daily 4. Prophylaxis- GI with IV Pepcid 20 mg every 12 hours DVT with subcutaneous Lovenox 40 mg daily 5. she is full code for now. 6. She is NPO for now. Attestations 2 Medical Necessity Statement*: She needs continued hospitalization for IV antibiotics for sepsis secondary to aspiration pneumonia and management of depression and suicidal ideation with psychiatric consult and probable placement to geriatric psych unit for further management Time Spent in Patient Care: 20 minutes Coding Level of Care Code Acute Code for [facility] Fwd Diagnoses Acute urinary retention R33.8 Encephalopathy G93.40 Aspiration pneumonia J69.0 Sepsis A41.9 Hypertension I10 Diabetes mellitus E11.9 Depression F32.A Suicidal behavior with attempted self-injury T14.91XA Time Spent (min) 20
--- NOTE | 2023-12-20 15:46 | P.NPUCON_ITS ---
Providers/Reason for Consult 2 Consulting Physican/Specialty*: Eliseo Meade MD/Psychiatry Reason for Consult*: Suicidal ideation Attending Physician: Evelia Garcia MD Psych Consult HPI History of Present Illness 78-year-old white female who was admitted to the intensive care unit after she had presented to the emergency department found by EMS unresponsive in her home. The patient was interviewed in the ICU. The patient had reported that she had overdosed on several pills that are used [id number] for sleeping along with several pills of Tylenol. She had reported that when she woke up after overdosing here in the hospital she was upset that she was still alive. Patient reports that she has been feeling depressed for several months. She reports that her had approximately 6 months ago and reports that it has been a struggle to manage her life since her of 55 years . She reports diminished energy. She reports having greater problems with concentration. She reports that she has been feeling depressed quite frequently over the past few days and acknowledges that she had been thinking about overdosing for several days. She reports that she has been struggling with caring for her son who has significant mental illness including bipolar disorder and significant problems with addiction to alcohol and methamphetamine. She had endorsed some increased feelings of hopelessness. She states that she has not spoken to anyone about her depression and reports that she is not finding pleasure with completing any activities and has low motivation to even care for herself. The patient denied any sandie. She denied any past history of depressive episodes. She denied any history of psychosis. She denied any history of drug or alcohol use. She reports no worsening medical issues. She reports having okay occasional periods of increased pain. She reports no clear history of any social phobia, generalized anxiety disorder, or obsessive-compulsive disorder. Psychiatric history: None Drug and alcohol history: None Legal history: None Medical history: Type 2 diabetes, hypertension, history of aspiration pneumonia, history of urinary retention, hypercholesterolemia Surgical history: History of D&C Current medications: Tramadol 50 mg twice a day, metoprolol 25 mg a day, metformin 1000 mg twice a day, lisinopril, glipizide, atorvastatin, Family psychiatric history: Polysubstance abuse and biological son., Bipolar disorder I in son. Social history: The patient lives in [facility] [place]] with her biological son in a house that she owns and is lived that for 29 years. She was prior to this time for 56 years to her who in 2022. Was her first marriage. She had previously worked in [employer]. She had graduated high school and has 1 son as she lost 1 child at . Her siblings are currently . She denied any history of sexual physical or emotional abuse. She did not endorse any history of problems with learning. She did not endorse any financial stressors. She reports that she has always lived independently and has friends in her surrounding area but has lost both her parents many years ago and has a niece that she is close with. Meds Home Medications and Allergies Home Medications Medication Instructions Recorded Confirmed Last Taken Type atorvastatin 40 mg tablet 40 mg PO DAILY 12/18/23 12/18/23 Unknown History glipizide 5 mg tablet 2.5 mg PO DAILY 12/18/23 12/18/23 Unknown History lisinopril 5 mg tablet 5 mg PO DAILY 12/18/23 12/18/23 Unknown History metformin 1,000 mg tablet 1,000 mg PO BID 12/18/23 12/18/23 Unknown History metoprolol succinate 25 mg 25 mg PO QAM 12/18/23 12/18/23 Unknown History tablet,extended release 24 hr tramadol 50 mg tablet 50 mg PO BID PRN Pain 12/18/23 12/18/23 Unknown History Allergies Allergy/AdvReac Type Severity Reaction Status Date / Time No Known Allergies Allergy Verified 03/05/22 12:14 Current Medications Current Medications Generic Name Dose Route Start Last Admin Trade Name Freq PRN Reason Stop Dose Admin Chlorhexidine Gluconate 1 applic 12/18/23 02:25 12/20/23 02:11 Chlorhexidine Gluconate 4% Btl 118 Ml TOPICAL Not Given Q24H TERRY Enoxaparin Sodium 40 mg 12/18/23 09:00 12/20/23 07:58 Enoxaparin 40 Mg/0.4 Ml Syringe SUBCUT 40 mg DAILY TERRY Administration Famotidine 20 mg 12/17/23 19:00 12/20/23 06:23 Famotidine 20 Mg/2 Ml Inj IVP 20 mg Q12H TERRY Administration Hydralazine HCl 25 mg 12/19/23 20:39 12/20/23 12:30 Hydralazine 25 Mg Tablet PO 25 mg Q6H PRN Administration HYPERTENSION Fentanyl 1,000 mcg in 100 mls @ 0 mls/hr 12/17/23 18:00 12/19/23 21:15 Sublimaze IV Infused .Q0M TERRY Titration Protocol Per Protocol Piperacillin Sod/Tazobactam 50 mls @ 12.5 mls/hr 12/18/23 08:00 12/20/23 12:05 Sod 3.375 gm/ Sodium Chloride IV Infused Q8H TERRY Infusion Protocol Dexmedetomidine/Sodium Chloride 400 mcg in 100 mls @ 0 mls/hr 12/18/23 11:15 12/19/23 21:13 Precedex IV Infused .Q0M TERRY Titration Protocol Per Protocol Sodium Chloride 1,000 mls @ 100 mls/hr 12/19/23 14:00 12/20/23 09:53 Sodium Chloride 0.9% IV 100 mls/hr .Q10H TERRY Administration Vancomycin HCl 750 mg/ Sodium 250 mls @ 250 mls/hr 12/19/23 22:00 12/20/23 10:58 Chloride IV Infused Q12H TERRY Infusion Protocol Insulin Human Lispro 0 unit 12/17/23 22:45 12/20/23 11:56 Insulin Lispro 100 Unit/1 Ml SUBCUT 4 unit Q6H TERRY Administration Protocol Lanolin 1 applic 12/19/23 17:11 12/19/23 17:31 Lanolin Oint 7 Gm TOPICAL 1 applic PRN PRN Administration DRYNESS Lisinopril 5 mg 12/19/23 09:00 12/20/23 07:59 Lisinopril 5 Mg Tablet PO 5 mg DAILY TERRY Administration Metoprolol Succinate 25 mg 12/18/23 12:15 12/20/23 07:59 Metoprolol Succinate Er (24 Hr) 25 Mg Tablet PO 25 mg DAILY TERRY Administration PFSH NPU 2 PFSH: Medical History Hypertension Diabetes mellitus Mental Status Exam 2 MSE Comments: She is a casually dressed white female who appeared her stated age on the ICU unit. There was no evidence of any abnormal involuntary motor movements tics or tremors appreciated. There was moderate psychomotor retardation. Her mood was described as depressed. Her affect was mood congruent and restricted in range. Her thought process was linear logical and goal-directed. Speech is normal in regards to rate, rhythm and prosody. Her thought content showed evidence of suicidal ideation with a plan to overdose and intent noted. She denied any homicidal ideation. There was no evidence of any delusional thinking. She did not appear to be responding to internal stimuli. She was alert and oriented to person place time and situation. Her attention span appeared fair. Her recent and remote memory were grossly intact. Her insight was poor. Her judgment was poor. Her impulse control appeared impaired. Vitals/I&O/Wt Last Vital Signs Temp 98.1 F 12/20/23 11:42 Pulse 91 12/20/23 14:00 Resp 18 12/20/23 07:45 BP 200/85 12/20/23 14:00 Pulse Ox 98 12/20/23 12:00 O2 Del Method Room Air 12/20/23 07:45 O2 Flow Rate 0 12/20/23 05:30 FiO2 25 12/19/23 13:56 12/20/23 12/20/23 12/20/23 06:59 14:59 22:59 Intake Total 1300 / 7200.013 3314 / 1630 Output Total 300 / 1150 1100 / 1100 Balance 1000 / 541.655 530 / 530 Weight last 48 hrs Weight 63.957 kg Weight 58.513 kg Physical Exam 2 Urinary Catheter Management: French: Cath Placed During This Visit: yes Reason for Continuing Indwelling Catheter: Accurate Measurement of Urinary Output in Critically Ill Patients Urinary Catheter Date of Insertion: 12/17/23 Urinary Catheter Time of Insertion: 18:55 Data NPU 12/20/23 04:09 12/20/23 04:09 Micro: Microbiology 12/17/23 18:20 Gram Stain - Final Sputum - Endotracheal Wash Sputum Culture - Final Microbiology 12/17/23 18:20 Sputum - Endotracheal Wash Gram Stain - Final 12/17/23 18:20 Sputum - Endotracheal Wash Sputum Culture - Final A&P Assessment and plan (1) Major 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 Patient will require acute inpatient psychiatric hospitalization at a geriatric facility. She was agreeable to starting an antidepressant to target her depression. 1. Trial of Lexapro 10mg to target severe depression. 2. Involuntary hospitalization and transfer to geriatric psychiatric facility necessary. Attestations NPU 2 Medical Necessity Statement*: Inpatient hospitalization at a geriatric psychiatric facility is medically necessary and deemed to ?be ?the clinically appropriate intervention ?at this time.? ? Coding Level of Care Code Acute Code for [facility] Fwd Diagnoses Major depressive disorder without psychotic features F32.9 Intentional overdose T50.902A
[2023-12-20 16:57] LABS: Glucose Point of Care 177 mg/dL (70-110)
[2023-12-21] VITALS (31 sets, daily range): BP systolic 139–203; BP diastolic 57–102; PULSE 76–124; RESP 10–25; TEMP 37.1–37.3; O2SAT 94–99
[2023-12-21 03:29] LABS: Glucose Point of Care 187 mg/dL (70-110)
[2023-12-21] MEDS: sodium chloride 0.9% 1,000 ML 100 ML IV (04:59)
[2023-12-21 05:01] LABS: Basophils # 0.1 10^3/uL (0.0-0.1); Basophils % 0.6 %; Eosinophils # 0.1 10^3/uL (0.0-0.8); Eosinophils % 0.6 %; Hematocrit 35.9 % (36-47); Lymphocytes # 1.2 10^3/uL (0.8-4.8); Lymphocytes % 12.5 %; Mean Corpuscular HGB Conc 33.7 g/dL (30-55); Mean Corpuscular Hemoglobin 30.6 pg (27-33); Mean Corpuscular Volume 90.9 fl (85-98); Mean Platelet Volume 10.1 fL (7.4-10.4); Monocytes % 9.9 %; Neutrophils # 7.47 10^3/uL (1.8-7.7); Nucleated Red Blood Cells % 0 %; Platelet Count 211 10^3/cmm (157-399); Red Blood Count 3.95 10^6/uL (3.85-5.65); Red Cell Distribution Width 13.2 % (12.1-15.1); White Blood Count 9.83 10^3/uL (3.29-11.43)
[2023-12-21 07:20] LABS: Glucose Point of Care 98 mg/dL (70-110)
[2023-12-21] MEDS: hyDRALAzine 25 mg Tablet PO ×3 (07:38→20:25)
[2023-12-21] MEDS: famotidine 20 mg/2 mL INJ IVP ×2 (07:39→18:26)
[2023-12-21] MEDS: piperacillin-tazobactam 3.375 GM in sodium chloride 0.9% (plus) 50 ML IV ×3 (07:40→23:28)
[2023-12-21] MEDS: enoxaparin 40 mg/0.4 mL Syringe SUBCUT (09:17)
[2023-12-21] MEDS: metoprolol succinate ER (24 HR) 25 mg Tablet PO ×2 (09:17→17:22)
[2023-12-21] MEDS: lisinopril 5 mg Tablet PO (09:17)
[2023-12-21] MEDS: escitalopram 10 mg Tablet PO (09:17)
[2023-12-21] MEDS: hyDRALAzine 20 mg/mL INJ 1 mL 10 MG IVP ×2 (09:34→18:25)
--- NOTE | 2023-12-21 10:02 | PC.NURSE ---
notified of elevated bp and hr. rec'd order for hydralazine 10mg ivp once, given. will continue to monitor hr
--- NOTE | 2023-12-21 11:10 | PC.SOCIAL ---
IMM Update pg 2 of IMM updated and reviewed w/ patient. Copy provided and copy dated, initialed and placed in chart.
[2023-12-21] MEDS: vancomycin 750 MG in sodium chloride 0.9% 250 ML 250 MG IV ×2 (12:02→22:11)
[2023-12-21] MEDS: LORazepam 0.5 mg Tablet PO ×2 (12:03→20:25)
[2023-12-21] MEDS: acetaminophen 325 mg/10.15 mL UDC 1000 MG PO (12:04)
[2023-12-21 12:05] LABS: Glucose Point of Care 298 mg/dL (70-110)
[2023-12-21] MEDS: insulin lispro 100 unit/1 mL SUBCUT ×3 (12:42→20:28)
--- NOTE | 2023-12-21 12:49 | P.PN_ITS ---
Subjective 2 Subjective: No acute overnight events noted. Seen at bedside. She is doing well, complaint of headache this afternoon which resolved with 1 dose of Tylenol. He was found to have high systolic blood pressure in 180s to 190s, likely secondary to anxiety. Will monitor for now. Medications: Reviewed: Yes Vitals/I&O/Wt Last Vital Signs Temp 99.1 F 12/21/23 00:00 Pulse 119 H 12/21/23 09:00 Resp 15 12/21/23 09:00 BP 182/82 12/21/23 09:00 Pulse Ox 97 12/21/23 05:00 O2 Del Method Room Air 12/21/23 05:00 O2 Flow Rate 0 12/20/23 05:30 FiO2 25 12/19/23 13:56 12/20/23 12/21/23 12/21/23 22:59 06:59 14:59 Intake Total 1270 / 2900 1190 / 4090 240 / 240 Output Total 1150 / 2250 700 / 2950 Balance 120 / 650 490 / 1140 240 / 240 Weight last 48 hrs Weight 63.957 kg Physical Exam 2 Narrative: She is awake, alert and oriented x 3, not in acute distress Chest clear to auscultation bilaterally Cardiovascular normal heart sounds no murmurs Abdomen soft non distended normal bowel sounds Extremities no edema noted bilaterally Urinary Catheter Management: French: Cath Placed During This Visit: yes Reason for Continuing Indwelling Catheter: Accurate Measurement of Urinary Output in Critically Ill Patients Urinary Catheter Date of Insertion: 12/17/23 Urinary Catheter Time of Insertion: 18:55 Data 12/21/23 04:40 12/20/23 04:09 A&P Assessment and plan (1) Acute urinary retention: (2) Encephalopathy: (3) Aspiration pneumonia: (4) Sepsis: (5) Hypertension: (6) Diabetes mellitus: (7) Depression: (8) Suicidal behavior with attempted self-injury: Plan 78-year-old female with history of hypertension and diabetes was brought in by EMS for unresponsiveness at home, covered in white powdery material and was found to have leukocytosis with left shift and lactate of 3.1 Likely secondary to aspiration pneumonia/severe sepsis She is s/p extubation and doing well. 1. Sepsis secondary to pneumonia- Will continue with IV vancomycin and Zosyn for now. Leukocytosis resolved 2. Depression and suicidal ideation- Continue one-to-one observation Started on po lexapro 10mg daily. She needs [facility] for further management of depression and suicidal ideation. 3.HTN-uncontrolled continue home dose of lisinopril 5 mg daily increase Metoprolol to 25 mgbid added po hydralazine 25 bid po ativan 0.5mg at bedtime. 4. Prophylaxis- GI with IV Pepcid 20 mg every 12 hours DVT with subcutaneous Lovenox 40 mg daily 5. she is full code for now. 6. cardiac diet Plan to discharge her to geriatric nursing facility. Attestations 2 Medical Necessity Statement*: She needs continued hospitalization for monitoring of uncontrolled hypertension and placement to geriatric nursing facility Time Spent in Patient Care: 15 minutes Coding Level of Care Code Acute Code for [facility] Fwd Diagnoses Acute urinary retention R33.8 Encephalopathy G93.40 Aspiration pneumonia J69.0 Sepsis A41.9 Hypertension I10 Diabetes mellitus E11.9 Depression F32.A Suicidal behavior with attempted self-injury T14.91XA Time Spent (min) 15
[2023-12-21] MEDS: propranolol 20 mg Tablet PO (17:22)
--- NOTE | 2023-12-21 17:42 | P.NPUPN_ITS ---
Subjective NPU 2 Subjective: 78-year-old white female admitted to ICU who reported suicidal ideation and overdosed on multiple medications. She had continued to acknowledge that she had been feeling suicidal. She reported no side effects from her Lexapro. She reported continued depression and hopelessness. Mental Status Exam 2 MSE Comments: She is a casually dressed white female who appeared her stated age on the ICU unit. There was no evidence of any abnormal involuntary motor movements tics or tremors appreciated. There was moderate psychomotor retardation. Her mood remained depressed. Her affect was mood congruent and restricted in range. Her thought process was linear logical and goal-directed. Speech is normal in regards to rate, rhythm and prosody. Her thought content showed evidence of suicidal ideation with a plan to overdose and intent noted. She denied any homicidal ideation. There was no evidence of any delusional thinking. She did not appear to be responding to internal stimuli. She was alert and oriented to person place time and situation. Her attention span appeared fair. Her recent and remote memory were grossly intact. Her insight was poor. Her judgment was poor. Her impulse control appeared impaired. Vitals/I&O/Wt Last Vital Signs Temp 98.7 F 12/21/23 16:07 Pulse 91 12/21/23 15:00 Resp 16 12/21/23 15:00 BP 155/73 12/21/23 15:00 Pulse Ox 98 12/21/23 15:00 O2 Del Method Room Air 12/21/23 05:00 O2 Flow Rate 0 12/20/23 05:30 FiO2 25 12/19/23 13:56 12/21/23 12/21/23 12/21/23 06:59 14:59 22:59 Intake Total 1190 / 4090 290 / 290 250 / 540 Output Total 700 / 2950 Balance 490 / 1140 290 / 290 250 / 540 Weight last 48 hrs Weight 63.957 kg Physical Exam 2 Urinary Catheter Management: French: Cath Placed During This Visit: yes Reason for Continuing Indwelling Catheter: Accurate Measurement of Urinary Output in Critically Ill Patients Urinary Catheter Date of Insertion: 12/17/23 Urinary Catheter Time of Insertion: 18:55 Data NPU 12/21/23 04:40 12/20/23 04:09 A&P Assessment and plan (1) Major 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 Patient will require acute inpatient psychiatric hospitalization at a geriatric facility. She was agreeable to starting an antidepressant to target her depression. She continues to require involuntary hospitalization. 1. Continue Lexapro 10mg to target severe depression. 2. Involuntary hospitalization and transfer to geriatric psychiatric facility necessary. Attestations NPU 2 Medical Necessity Statement*: Inpatient hospitalization at a geriatric psychiatric facility is medically necessary and deemed to ?be ?the clinically appropriate intervention?once medically stabilized. ? Coding Level of Care Code Acute Code for [facility] Fwd Diagnoses Major depressive disorder without psychotic features F32.9 Intentional overdose T50.902A
[2023-12-21 18:11] LABS: Glucose Point of Care 212 mg/dL (70-110)
--- NOTE | 2023-12-21 18:42 | ECG_ITS ---
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 Measurements Intervals [place] Rate: 80 P: 79 WV: 158 QRS: 76 QRSD: 86 T: 78 QT: 367 QTc: 424 Interpretive Statements SINUS RHYTHM WITH OCCASIONAL SUPRAVENTRICULAR PREMATURE COMPLEXES NONSPECIFIC ST & T-WAVE ABNORMALITY Compared to ECG 12/17/2023 23:22:09 No significant changes Electronically Signed On 12-22-2023 6:36:06 CDT by Juan Weaver M.D. [id number]
[2023-12-21 20:20] LABS: Glucose Point of Care 289 mg/dL (70-110)
[2023-12-21] MEDS: atorvastatin 40 mg Tablet PO (20:25)
[2023-12-21 22:02] LABS: Vancomycin Trough 11.4 ug/mL (10-15)
[2023-12-22] VITALS (28 sets, daily range): BP systolic 132–202; BP diastolic 61–109; PULSE 78–99; RESP 13–24; TEMP 36.8–37.1; O2SAT 92–99; BMI 22.5
[2023-12-22] MEDS: hyDRALAzine 20 mg/mL INJ 1 mL 10 MG IVP (06:11)
[2023-12-22] MEDS: famotidine 20 mg/2 mL INJ IVP ×2 (06:11→18:25)
--- NOTE | 2023-12-22 06:45 | PC.NURSE ---
RN asked pt if she is still experiencing SI. pt denies SI at this time. pt aox4.
[2023-12-22 07:25] LABS: Glucose Point of Care 115 mg/dL (70-110)
[2023-12-22] MEDS: metoprolol succinate ER (24 HR) 25 mg Tablet PO ×2 (08:37→17:16)
[2023-12-22] MEDS: enoxaparin 40 mg/0.4 mL Syringe SUBCUT (08:37)
[2023-12-22] MEDS: hyDRALAzine 25 mg Tablet PO (08:37)
[2023-12-22] MEDS: piperacillin-tazobactam 3.375 GM in sodium chloride 0.9% (plus) 50 ML IV ×2 (08:37→16:00)
[2023-12-22] MEDS: lisinopril 5 mg Tablet PO (08:37)
[2023-12-22] MEDS: escitalopram 10 mg Tablet PO (08:38)
--- NOTE | 2023-12-22 09:03 | USCV_ITS ---
Lety Singh Age: 78 Gender: F : 1945 Exam Date: 12/22/2023 09:28 Ordering Phys: Evelia Garcia MD Technologist: [place] [facility] [place]: hypertensive emergency BP: 158 / 63 HR: 90 Rhythm: Sinus Technical Quality: Adequate MEASUREMENTS (Male / Female) Normal Values 2D ECHO LV Diastolic Diameter PLAX 3.5 cm 4.2 - 5.9 / 3.9 - 5.3 cm IVS Diastolic Thickness 1.1 cm 0.6 - 1.0 / 0.6 - 0.9 cm IVS Systolic Thickness 1.5 cm LVPW Diastolic Thickness 0.9 cm 0.6 - 1.0 / 0.6 - 0.9 cm LVPW Systolic Thickness 1.3 cm LVOT Diameter 2.0 cm LV Ejection Fraction 2D Teich 59.0 % LV Ejection Fraction MOD 2C 62.8 % LV Ejection Fraction 2C AL 62.2 % LA Diameter 3.0 cm RA Systolic Volume 4C AL 25.4 ml RA Systolic Volume 4C MOD 25.5 ml M-MODE LA Ao Ratio MM 1.2 AV Cusp Separation MM 1.9 cm DOPPLER AV Peak Velocity 166.7 cm/s LVOT Peak Velocity 101.0 cm/s AV Area Cont Eq vti 1.9 cm squared AV Area Cont Eq pk 1.9 cm squared MV Peak Velocity 116.0 cm/s MV Area PHT 4.9 cm squared Mitral E to A Ratio 1.0 TV Peak Velocity 228.0 cm/s TR Peak Velocity 300.0 cm/s TR Peak Gradient 36.0 mmHg TV Peak E Velocity 99.0 cm/s Right Atrial Pressure 3.0 mmHg Pulmonary Artery Systolic Pressu 39.0 mmHg PV Peak Velocity 111.0 cm/s FINDINGS Left Ventricle Normal left ventricular size and systolic function, EF 60%.mild left ventricular hypertrophy. No regional wall motion abnormalities. Grade II/IV diastolic dysfunction, moderately elevated filling pressures. Right Ventricle The right ventricle is normal in size and function. Right Atrium The right atrium is normal in size. Left Atrium The left atrium is normal in size. Mitral Valve No gross morphological abnormalities.mild mitral annular calcification. Aortic Valve No gross morphological abnormalities Tricuspid Valve Trace tricuspid valve regurgitation. Pulmonic Valve No gross morphological abnormalities Pericardium Normal pericardium without effusion. Aorta Normal ascending aorta dimension. IVC The inferior vena cava appears normal. CONCLUSIONS Normal left ventricular size and systolic function, EF 60%.mild left ventricular hypertrophy. No regional wall motion abnormalities. Grade II/IV diastolic dysfunction, moderately elevated filling pressures. Trace tricuspid valve regurgitation. Mild mitral annular calcification There is no pericardial effusion. There are no intracardiac masses. No similar previous studies are available for comparison Dr Roberto Metzger MD [facility] (Electronically Signed) Final Date: 22 December 2023 12:27 S
[2023-12-22] MEDS: vancomycin 750 MG in sodium chloride 0.9% 250 ML 250 MG IV ×2 (10:25→21:00)
--- NOTE | 2023-12-22 10:47 | PC.NURSE ---
Remove Trivedi Catheter Removed trivedi catheter, 8mls removed from balloon. Catheter tip intact upon removal. Patient tolerated procedure well.
[2023-12-22 11:21] LABS: Glucose Point of Care 224 mg/dL (70-110)
[2023-12-22] MEDS: acetaminophen 325 mg Tablet 650 MG PO (11:27)
[2023-12-22] MEDS: amlodipine 10 mg Tablet PO (11:27)
[2023-12-22] MEDS: insulin lispro 100 unit/1 mL SUBCUT ×3 (11:39→20:41)
--- NOTE | 2023-12-22 13:21 | P.NPUPN_ITS ---
Subjective NPU 2 Subjective: 78-year-old white female admitted to ICU who reported suicidal ideation and overdosed on multiple medications. She had minimized suicidal ideation today but remained depressed and stated that she would never do it again. The patient had acknowledged the significant lethality of her actions. She reported no side effects from her medication. Mental Status Exam 2 MSE Comments: She is a casually dressed white female who appeared her stated age on the ICU unit. There was no evidence of any abnormal involuntary motor movements tics or tremors appreciated. There was moderate psychomotor retardation. Her mood remained depressed. Her affect was mood congruent and restricted in range. Her thought process was linear logical and goal-directed. Speech is normal in regards to rate, rhythm and prosody. She minimized suicidal ideation but acknowledged seriousness of overdose and intent noted. She denied any homicidal ideation. There was no evidence of any delusional thinking. She did not appear to be responding to internal stimuli. She was alert and oriented to person place time and situation. Her attention span appeared fair. Her recent and remote memory were grossly intact. Her insight was poor. Her judgment was poor. Her impulse control appeared impaired. Vitals/I&O/Wt Last Vital Signs Temp 98.7 F 12/22/23 10:00 Pulse 84 12/22/23 10:00 Resp 16 12/22/23 10:00 BP 161/70 12/22/23 10:00 Pulse Ox 96 12/22/23 10:00 O2 Del Method Room Air 12/22/23 10:00 O2 Flow Rate 0 12/20/23 05:30 FiO2 25 12/19/23 13:56 12/21/23 12/22/23 12/22/23 22:59 06:59 14:59 Intake Total 300 / 590 300 / 890 2014 Output Total 2500 / 2500 375 / 2875 Balance -2200 / -1910 -75 / -1985 2014 Weight last 48 hrs Weight 61.462 kg Physical Exam 2 Urinary Catheter Management: French: Cath Placed During This Visit: yes, but has since been removed by the nurse Reason for Continuing Indwelling Catheter: Accurate Measurement of Urinary Output in Critically Ill Patients Urinary Catheter Date of Insertion: 12/17/23 Urinary Catheter Time of Insertion: 18:55 Date Urinary Catheter Removed: 12/22/23 Time Urinary Catheter Discontinued: 10:45 Data NPU 12/21/23 04:40 12/20/23 04:09 A&P Assessment and plan (1) Major 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 Patient will require acute inpatient psychiatric hospitalization at a geriatric facility. She was agreeable to starting an antidepressant to target her depression. She continues to require involuntary hospitalization. 1. Continue Lexapro 10mg to target severe depression. 2. Involuntary hospitalization and transfer to geriatric psychiatric facility necessary. Attestations NPU 2 Medical Necessity Statement*: Inpatient hospitalization at a geriatric psychiatric facility is medically necessary and deemed to ?be ?the clinically appropriate intervention?once medically stabilized. ? Coding Level of Care Code Acute Code for [facility] Fwd Diagnoses Major depressive disorder without psychotic features F32.9 Intentional overdose T50.902A
[2023-12-22] MEDS: hyDRALAzine 25 mg Tablet 50 MG PO ×2 (16:00→20:12)
--- NOTE | 2023-12-22 16:32 | P.PN_ITS ---
Subjective 2 Subjective: No acute overnight events noted. Seen at bedside this morning, she is feeling better. As per the nurse her blood pressure and heart rate has been under control with current medications Medications: Reviewed: Yes Vitals/I&O/Wt Last Vital Signs Temp 98.7 F 12/22/23 16:00 Pulse 86 12/22/23 16:00 Resp 16 12/22/23 16:00 BP 178/73 12/22/23 16:00 Pulse Ox 96 12/22/23 16:00 O2 Del Method Room Air 12/22/23 16:00 O2 Flow Rate 0 12/20/23 05:30 FiO2 25 12/19/23 13:56 12/22/23 12/22/23 12/22/23 06:59 14:59 22:59 Intake Total 300 / 890 2520 / 2520 Output Total 375 / 2875 Balance - / -1984 2520 / 2520 Weight last 48 hrs Weight 61.462 kg Physical Exam 2 Narrative: She is awake, alert and oriented x 3, not in acute distress Chest clear to auscultation bilaterally Cardiovascular normal heart sounds no murmurs Abdomen soft non distended normal bowel sounds Extremities no edema noted bilaterally Urinary Catheter Management: French: Cath Placed During This Visit: yes, but has since been removed by the nurse Reason for Continuing Indwelling Catheter: Accurate Measurement of Urinary Output in Critically Ill Patients Urinary Catheter Date of Insertion: 12/17/23 Urinary Catheter Time of Insertion: 18:55 Date Urinary Catheter Removed: 12/22/23 Time Urinary Catheter Discontinued: 10:45 Data 12/21/23 04:40 12/20/23 04:09 A&P Assessment and plan (1) Acute urinary retention: (2) Encephalopathy: (3) Aspiration pneumonia: (4) Sepsis: (5) Hypertension: (6) Diabetes mellitus: (7) Depression: (8) Suicidal behavior with attempted self-injury: Plan 78-year-old female with history of hypertension and diabetes was brought in by EMS for unresponsiveness at home, covered in white powdery material and was found to have leukocytosis with left shift and lactate of 3.1 Likely secondary to aspiration pneumonia/severe sepsis She is s/p extubation and doing well. 1. Sepsis secondary to pneumonia- resolved Sputum culture consistent with gram-positive cocci, will continue with IV vancomycin. Discontinue IV Zosyn 2. Depression and suicidal ideation- Continue one-to-one observation Started on po lexapro 10mg daily. Continue Ativan 0.5 mg at bedtime for anxiety She needs [facility] for further management of depression and suicidal ideation. 3.HTN- stable 2D echo done for uncontrolled hypertension and sinus tachycardia showed normal left ventricular size and systolic function, EF 60%.mild left ventricular hypertrophy. No regional wall motion abnormalities. Grade II/IV diastolic dysfunction, moderately elevated filling pressures. Trace tricuspid valve regurgitation. Mild mitral annular calcification There is no pericardial effusion. There are no intracardiac masses. Discontinue lisinopril, will start on amlodipine 10 mg daily increase Metoprolol to 25 mgbid added po hydralazine increased to 50 mg 3 times daily po ativan 0.5mg at bedtime. 4. Prophylaxis- GI with IV Pepcid 20 mg every 12 hours DVT with subcutaneous Lovenox 40 mg daily 5. she is full code for now. 6. cardiac diet Plan to discharge her to geriatric nursing facility. Attestations 2 Medical Necessity Statement*: She is medically doing well and is waiting to be discharged to geriatric psych facility Time Spent in Patient Care: 15 minutes Coding Level of Care Code Acute Code for [facility] Fwd Diagnoses Acute urinary retention R33.8 Encephalopathy G93.40 Aspiration pneumonia J69.0 Sepsis A41.9 Hypertension I10 Diabetes mellitus E11.9 Depression F32.A Suicidal behavior with attempted self-injury T14.91XA Time Spent (min) 15
[2023-12-22 17:03] LABS: Glucose Point of Care 325 mg/dL (70-110)
[2023-12-22 19:46] LABS: Amphetamines Screen Urine Negative (Negative); Barbiturates Screen Urine Negative (Negative); Benzodiazepines Screen Urine Positive (Negative); Cocaine Screen Urine Negative (Negative); Opiate Screen Urine Negative (Negative); PCP Screen Urine Negative (Negative); THC Screen Urine Negative (Negative)
[2023-12-22] MEDS: LORazepam 0.5 mg Tablet PO (20:11)
[2023-12-22] MEDS: atorvastatin 40 mg Tablet PO (20:12)
[2023-12-22 20:33] LABS: Glucose Point of Care 240 mg/dL (70-110)
[2023-12-23] VITALS (8 sets, daily range): BP systolic 111–161; BP diastolic 47–68; PULSE 84–100; RESP 16–17; TEMP 36.8–37.8; O2SAT 95–96
[2023-12-23] MEDS: famotidine 20 mg/2 mL INJ IVP (06:15)
[2023-12-23 06:21] LABS: Glucose Point of Care 119 mg/dL (70-110)
[2023-12-23] MEDS: amlodipine 10 mg Tablet PO (08:58)
[2023-12-23] MEDS: escitalopram 10 mg Tablet PO (08:58)
[2023-12-23] MEDS: metoprolol succinate ER (24 HR) 25 mg Tablet PO ×2 (08:58→17:48)
[2023-12-23] MEDS: hyDRALAzine 20 mg/mL INJ 1 mL 10 MG IVP (08:59)
[2023-12-23] MEDS: hyDRALAzine 25 mg Tablet 50 MG PO (08:59)
[2023-12-23] MEDS: enoxaparin 40 mg/0.4 mL Syringe SUBCUT (09:00)
[2023-12-23 11:03] LABS: Glucose Point of Care 272 mg/dL (70-110)
[2023-12-23] MEDS: vancomycin 750 MG in sodium chloride 0.9% 250 ML 250 MG IV (11:09)
[2023-12-23] MEDS: acetaminophen 325 mg Tablet 650 MG PO (11:31)
[2023-12-23] MEDS: insulin lispro 100 unit/1 mL SUBCUT ×3 (11:40→21:02)
--- NOTE | 2023-12-23 12:00 | PC.SOCIAL ---
IMM Update pg 2 of IMM updated and reviewed w/ patient. Copy provided and copy dated, initialed and placed in chart.
--- NOTE | 2023-12-23 13:49 | P.PN_ITS ---
Subjective 2 Subjective: No acute overnight events noted. Seen at bedside this morning, she has been physically active walking around without support. No complaint of chest pain shortness of breath dizziness or weakness Medications: Reviewed: Yes Vitals/I&O/Wt Last Vital Signs Temp 98.4 F 12/23/23 12:36 Pulse 100 12/23/23 12:36 Resp 17 12/23/23 12:36 BP 111/47 12/23/23 12:36 Pulse Ox 96 12/23/23 12:36 O2 Del Method Room Air 12/22/23 16:00 O2 Flow Rate 0 12/20/23 05:30 FiO2 25 12/19/23 13:56 12/22/23 12/23/23 12/23/23 22:59 06:59 14:59 Intake Total 520.833 / 3040.833 0 / 3040.833 300 / 300 Balance 520.833 / 3040.833 0 / 3040.833 300 / 300 Weight last 48 hrs Weight 64.909 kg Weight 61.462 kg Physical Exam 2 Narrative: She is awake, alert and oriented x 3, not in acute distress Chest clear to auscultation bilaterally Cardiovascular normal heart sounds no murmurs Abdomen soft non distended normal bowel sounds Extremities no edema noted bilaterally Urinary Catheter Management: French: Cath Placed During This Visit: yes, but has since been removed by the nurse Reason for Continuing Indwelling Catheter: Accurate Measurement of Urinary Output in Critically Ill Patients Urinary Catheter Date of Insertion: 12/17/23 Urinary Catheter Time of Insertion: 18:55 Date Urinary Catheter Removed: 12/22/23 Time Urinary Catheter Discontinued: 10:45 Data 12/21/23 04:40 12/20/23 04:09 Micro: Microbiology 12/17/23 18:10 Blood Culture - Final Blood NO GROWTH AFTER 5 DAYS 12/17/23 18:10 Blood Culture - Final Blood NO GROWTH AFTER 5 DAYS A&P Assessment and plan (1) Acute urinary retention: (2) Encephalopathy: (3) Aspiration pneumonia: (4) Sepsis: (5) Hypertension: (6) Diabetes mellitus: (7) Depression: (8) Suicidal behavior with attempted self-injury: Plan 78-year-old female with history of hypertension and diabetes was brought in by EMS for unresponsiveness at home, covered in white powdery material and was found to have leukocytosis with left shift and lactate of 3.1 Likely secondary to aspiration pneumonia/severe sepsis She is s/p extubation and doing well. 1. Sepsis secondary to pneumonia- resolved Sputum culture consistent with gram-positive cocci, will change to oral antibiotics levofloxacin 750mg daily Discontinue IV Zosyn and vancomycin. 2. Depression and suicidal ideation- Continue one-to-one observation Started on po lexapro 10mg daily. Continue Ativan 0.5 mg at bedtime for anxiety Waiting to be transferred to [facility] unit 3.HTN- stable and well controlled on current meds. 2D echo done for uncontrolled hypertension and sinus tachycardia showed normal left ventricular size and systolic function, EF 60%.mild left ventricular hypertrophy. No regional wall motion abnormalities. Grade II/IV diastolic dysfunction, moderately elevated filling pressures. Trace tricuspid valve regurgitation. Mild mitral annular calcification There is no pericardial effusion. There are no intracardiac masses. Discontinue lisinopril, amlodipine reduced to 5mg daily increase Metoprolol to 25 mgbid added po hydralazine increased to 50 mg 3 times daily po ativan 0.5mg at bedtime. 4. Prophylaxis- GI with IV Pepcid 20 mg every 12 hours DVT with subcutaneous Lovenox 40 mg daily 5. she is full code for now. 6. cardiac diet Plan to discharge her to geriatric nursing facility. Attestations 2 Medical Necessity Statement*: She is hemodynamically stable and waiting to be transferred to geriatric psych unit Time Spent in Patient Care: 15 minutes Coding Level of Care Code Acute Code for [facility] Fwd Diagnoses Acute urinary retention R33.8 Encephalopathy G93.40 Aspiration pneumonia J69.0 Sepsis A41.9 Hypertension I10 Diabetes mellitus E11.9 Depression F32.A Suicidal behavior with attempted self-injury T14.91XA Time Spent (min) 15
[2023-12-23] MEDS: hyDRALAzine 50 mg Tablet PO ×2 (16:23→20:08)
[2023-12-23 17:00] LABS: Glucose Point of Care 322 mg/dL (70-110)
[2023-12-23] MEDS: LORazepam 0.5 mg Tablet PO (20:08)
[2023-12-23] MEDS: atorvastatin 40 mg Tablet PO (20:08)
[2023-12-23 20:52] LABS: Glucose Point of Care 322 mg/dL (70-110)
[2023-12-24] VITALS (8 sets, daily range): BP systolic 125–165; BP diastolic 54–74; PULSE 85–98; RESP 16–17; TEMP 36.4–37.3; O2SAT 93–96
[2023-12-24] MEDS: levoFLOXacin 750 mg Tablet PO (05:49)
[2023-12-24 06:26] LABS: Glucose Point of Care 128 mg/dL (70-110)
[2023-12-24] MEDS: amlodipine 5 mg Tablet PO (08:47)
[2023-12-24] MEDS: hyDRALAzine 50 mg Tablet PO ×3 (08:47→20:55)
[2023-12-24] MEDS: enoxaparin 40 mg/0.4 mL Syringe SUBCUT (08:47)
[2023-12-24] MEDS: escitalopram 10 mg Tablet PO (08:47)
[2023-12-24] MEDS: metoprolol succinate ER (24 HR) 25 mg Tablet PO ×2 (08:47→17:35)
--- NOTE | 2023-12-24 09:20 | PM.PN ---
Subjective Subjective: No acute overnight events noted Medications: Reviewed: Yes Vitals/I&O/Wt Last Vital Signs Temp 99.2 F 12/24/23 04:00 Pulse 86 12/24/23 05:32 Resp 16 12/24/23 04:00 BP 138/61 12/24/23 04:00 Pulse Ox 93 12/24/23 04:00 O2 Del Method Room Air 12/24/23 04:00 O2 Flow Rate 0 12/20/23 05:30 FiO2 25 12/19/23 13:56 12/23/23 12/24/23 12/24/23 22:59 06:59 14:59 Intake Total 590 / 890 120 / 1010 Balance 590 / 890 120 / 1010 Weight last 48 hrs Weight 64.682 kg Weight 64.909 kg Physical Exam Narrative: She is awake, alert and oriented x 3, not in acute distress Chest clear to auscultation bilaterally Cardiovascular normal heart sounds no murmurs Abdomen soft non distended normal bowel sounds Extremities no edema noted bilaterally Urinary Catheter Management: French: Cath Placed During This Visit: yes, but has since been removed by the nurse Reason for Continuing Indwelling Catheter: Accurate Measurement of Urinary Output in Critically Ill Patients Urinary Catheter Date of Insertion: 12/17/23 Urinary Catheter Time of Insertion: 18:55 Date Urinary Catheter Removed: 12/22/23 Time Urinary Catheter Discontinued: 10:45 Data 12/21/23 04:40 12/20/23 04:09 A&P Assessment and plan (1) Acute urinary retention: (2) Encephalopathy: (3) Aspiration pneumonia: (4) Sepsis: (5) Hypertension: (6) Diabetes mellitus: (7) Depression: (8) Suicidal behavior with attempted self-injury: Plan 78-year-old female with history of hypertension and diabetes was brought in by EMS for unresponsiveness at home, covered in white powdery material and was found to have leukocytosis with left shift and lactate of 3.1 Likely secondary to aspiration pneumonia/severe sepsis She is s/p extubation and doing well. 1. Sepsis secondary to pneumonia- resolved Sputum culture consistent with gram-positive cocci, will change to oral antibiotics levofloxacin 750mg daily Discontinue IV Zosyn and vancomycin. 2. Depression and suicidal ideation- Continue one-to-one observation Started on po lexapro 10mg daily. Continue Ativan 0.5 mg at bedtime for anxiety Waiting to be transferred to [facility] unit 3.HTN- stable and well controlled on current meds. 2D echo done for uncontrolled hypertension and sinus tachycardia showed normal left ventricular size and systolic function, EF 60%.mild left ventricular hypertrophy. No regional wall motion abnormalities. Grade II/IV diastolic dysfunction, moderately elevated filling pressures. Trace tricuspid valve regurgitation. Mild mitral annular calcification There is no pericardial effusion. There are no intracardiac masses. Discontinue lisinopril, amlodipine reduced to 5mg daily increase Metoprolol to 25 mgbid added po hydralazine increased to 50 mg 3 times daily po ativan 0.5mg at bedtime. 4. Prophylaxis- GI with IV Pepcid 20 mg every 12 hours DVT with subcutaneous Lovenox 40 mg daily 5. she is full code for now. 6. cardiac diet Plan to discharge her to geriatric nursing facility. Attestations Medical Necessity Statement*: She is waiting to be discharged to Geriatric psych facility Time Spent in Patient Care: 10 minutes Coding Level of Care Code Acute Code for [facility] Fwd Diagnoses Acute urinary retention R33.8 Encephalopathy G93.40 Aspiration pneumonia J69.0 Sepsis A41.9 Hypertension I10 Diabetes mellitus E11.9 Depression F32.A Suicidal behavior with attempted self-injury T14.91XA Time Spent (min) 10
[2023-12-24 10:53] LABS: Glucose Point of Care 236 mg/dL (70-110)
[2023-12-24] MEDS: insulin lispro 100 unit/1 mL SUBCUT ×3 (11:58→20:55)
[2023-12-24 16:50] LABS: Glucose Point of Care 267 mg/dL (70-110)
[2023-12-24 20:46] LABS: Glucose Point of Care 248 mg/dL (70-110)
[2023-12-24] MEDS: atorvastatin 40 mg Tablet PO (20:55)
[2023-12-24] MEDS: LORazepam 0.5 mg Tablet PO (20:55)
[2023-12-25 04:00] VITALS: BP 136/57; PULSE 94; RESP 18; TEMP 37; O2SAT 95
[2023-12-25 06:38] LABS: Glucose Point of Care 157 mg/dL (70-110)
[2023-12-25 08:09] VITALS: BP 136/57; PULSE 88; RESP 18; TEMP 36.9; O2SAT 94
[2023-12-25] MEDS: amlodipine 5 mg Tablet PO (08:38)
[2023-12-25] MEDS: insulin lispro 100 unit/1 mL SUBCUT ×4 (08:38→21:19)
[2023-12-25] MEDS: enoxaparin 40 mg/0.4 mL Syringe SUBCUT (08:38)
[2023-12-25] MEDS: escitalopram 10 mg Tablet PO (08:38)
[2023-12-25] MEDS: hyDRALAzine 50 mg Tablet PO ×3 (08:38→20:16)
[2023-12-25] MEDS: metoprolol succinate ER (24 HR) 25 mg Tablet PO ×2 (08:38→17:00)
[2023-12-25 12:15] LABS: Glucose Point of Care 318 mg/dL (70-110)
[2023-12-25 12:50] VITALS: BP 134/62; PULSE 90; RESP 18; TEMP 36.6; O2SAT 95
--- NOTE | 2023-12-25 13:06 | P.PN_ITS ---
Subjective 2 Subjective: No acute overnight events noted Medications: Reviewed: Yes Vitals/I&O/Wt Last Vital Signs Temp 97.9 F 12/25/23 12:50 Pulse 90 12/25/23 12:50 Resp 18 12/25/23 12:50 BP 134/62 12/25/23 12:50 Pulse Ox 95 12/25/23 12:50 O2 Del Method Room Air 12/25/23 12:50 O2 Flow Rate 0 12/20/23 05:30 FiO2 25 12/19/23 13:56 12/24/23 12/25/23 12/25/23 22:59 06:59 14:59 Intake Total 236 / 708 480 / 480 Balance 236 / 708 480 / 480 Weight last 48 hrs Weight 62.737 kg Weight 64.682 kg Physical Exam 2 Narrative: She is awake, alert and oriented x 3, not in acute distress Chest clear to auscultation bilaterally Cardiovascular normal heart sounds no murmurs Abdomen soft non distended normal bowel sounds Extremities no edema noted bilaterally Urinary Catheter Management: French: Cath Placed During This Visit: yes, but has since been removed by the nurse Reason for Continuing Indwelling Catheter: Accurate Measurement of Urinary Output in Critically Ill Patients Urinary Catheter Date of Insertion: 12/17/23 Urinary Catheter Time of Insertion: 18:55 Date Urinary Catheter Removed: 12/22/23 Time Urinary Catheter Discontinued: 10:45 Data 12/21/23 04:40 12/20/23 04:09 A&P Assessment and plan (1) Acute urinary retention: (2) Encephalopathy: (3) Aspiration pneumonia: (4) Sepsis: (5) Hypertension: (6) Diabetes mellitus: (7) Depression: (8) Suicidal behavior with attempted self-injury: Plan 78-year-old female with history of hypertension and diabetes was brought in by EMS for unresponsiveness at home, covered in white powdery material and was found to have leukocytosis with left shift and lactate of 3.1 Likely secondary to aspiration pneumonia/severe sepsis She is s/p extubation and doing well. 1. Sepsis secondary to pneumonia- resolved Sputum culture consistent with gram-positive cocci, will continue oral antibiotics levofloxacin 750mg daily 2. Depression and suicidal ideation- Continue one-to-one observation Started on po lexapro 10mg daily. Continue Ativan 0.5 mg at bedtime for anxiety Waiting to be transferred to [facility] 3.HTN- stable and well controlled on current meds. 2D echo done for uncontrolled hypertension and sinus tachycardia showed normal left ventricular size and systolic function, EF 60%.mild left ventricular hypertrophy. No regional wall motion abnormalities. Grade II/IV diastolic dysfunction, moderately elevated filling pressures. Trace tricuspid valve regurgitation. Mild mitral annular calcification There is no pericardial effusion. There are no intracardiac masses. Continue amlodipine 5 mg daily and metoprolol 25 mg twice daily Hydralazine 50 mg 3 times daily po ativan 0.5mg at bedtime. 4. Prophylaxis- GI with IV Pepcid 20 mg every 12 hours DVT with subcutaneous Lovenox 40 mg daily 5. she is limited resuscitation, wants CPR but no intubation. 6. cardiac diet Plan to discharge her to geriatric nursing facility. Attestations 2 Medical Necessity Statement*: She is waiting to be discharged to Geriatric psych facility Time Spent in Patient Care: 10 minutes Coding Level of Care Code Acute Code for g Fwd Diagnoses Acute urinary retention R33.8 Encephalopathy G93.40 Aspiration pneumonia J69.0 Sepsis A41.9 Hypertension I10 Diabetes mellitus E11.9 Depression F32.A Suicidal behavior with attempted self-injury T14.91XA Time Spent (min) 10
[2023-12-25 16:27] VITALS: BP 160/69; PULSE 53; RESP 17; TEMP 36.6; O2SAT 96
[2023-12-25 16:51] LABS: Glucose Point of Care 249 mg/dL (70-110)
[2023-12-25 20:13] VITALS: BP 139/53; PULSE 81; RESP 16; TEMP 37; O2SAT 95
[2023-12-25] MEDS: atorvastatin 40 mg Tablet PO (20:15)
[2023-12-25] MEDS: LORazepam 0.5 mg Tablet PO (20:16)
[2023-12-25 21:16] LABS: Glucose Point of Care 273 mg/dL (70-110)
[2023-12-25 23:39] VITALS: BP 108/58; PULSE 84; RESP 15; TEMP 36.8; O2SAT 95
[2023-12-26] VITALS: BP 108/58; PULSE 84; RESP 15; TEMP 36.8; O2SAT 95
[2023-12-26 03:30] VITALS: BP 125/54; PULSE 84; RESP 17; TEMP 36.8; O2SAT 95
[2023-12-26 05:47] VITALS: BMI 23.0
[2023-12-26 05:48] VITALS: BMI 22.5
[2023-12-26] MEDS: levoFLOXacin 750 mg Tablet PO (06:11)
[2023-12-26 06:41] LABS: Glucose Point of Care 164 mg/dL (70-110)
[2023-12-26 08:26] VITALS: BP 124/67; PULSE 93; RESP 18; TEMP 36.6; O2SAT 96
[2023-12-26] MEDS: hyDRALAzine 50 mg Tablet PO ×3 (08:31→20:53)
[2023-12-26] MEDS: enoxaparin 40 mg/0.4 mL Syringe SUBCUT (08:31)
[2023-12-26] MEDS: metoprolol succinate ER (24 HR) 25 mg Tablet PO ×2 (08:31→17:28)
[2023-12-26] MEDS: amlodipine 5 mg Tablet PO (08:31)
[2023-12-26] MEDS: escitalopram 10 mg Tablet PO (08:31)
[2023-12-26] MEDS: insulin lispro 100 unit/1 mL SUBCUT ×4 (08:32→20:53)
--- NOTE | 2023-12-26 11:03 | PC.SOCIAL ---
IMM Update pg 2 of IMM updated and reviewed w/ patient. Copy provided and copy dated, initialed and placed in chart.
[2023-12-26 11:53] LABS: Glucose Point of Care 271 mg/dL (70-110)
[2023-12-26 12:06] VITALS: BP 162/67; PULSE 88; RESP 18; TEMP 36.3; O2SAT 96
--- NOTE | 2023-12-26 12:25 | PC.NURSE ---
blaire reported that the patient has made two comments about leaving AMA. hydro operator notified, call to Dr. Mason went unanswered, voicemail left.
--- NOTE | 2023-12-26 13:25 | P.NPUPN_ITS ---
Subjective NPU 2 Subjective: Patient presented today reporting that she was doing okay. She reported that she is still struggling with depression but wanting to go home. She reported wanting to go home and try to get back to being herself. We had an extensive discussion about the appropriate treatment of depression and needing to have a plan that was consistent with the standard of care in situations like this. We discussed the need for evaluation for her progress on her antidepressant and whether it is going to be the appropriate and effective option. We discussed making sure that there was a clear plan for follow-up with a therapist and a psychiatrist. We discussed making sure there was a clear safety plan that would help ameliorate the likelihood of a repeat episode. She reported that she would not do this again, but we discussed that none of the factors that led to this moment have changed since her hospitalization. Her of 56 years remaining is for the past 6 months, her son with significant mental health and addiction issues and lives at home with her is still there and her seeming inability to adjust to that recent loss and create a new vision for her future still escapes her. We discussed her needing to have this inpatient treatment to have some confidence that this suicidal behavior is actually behind her. She endorsed understanding that she needs to go ahead and face this and try to get better moving forward. Mental Status Exam 2 MSE Comments: This is a slender white female in hospital gown with limited grooming and adequate eye contact. There was no evidence of any abnormal involuntary motor movements tics or tremors appreciated. However, there was moderate psychomotor retardation. Her mood was described as fine. Her affect was subdued and restricted in range and occasionally tearful. Her thought process was linear logical and goal-directed. Speech is decreased rate and volume. She minimized suicidal ideation but acknowledged seriousness of overdose and intent noted. She denied any homicidal ideation. There was no evidence of any delusional thinking. She did not appear to be responding to internal stimuli. She was alert and oriented to person place time and situation. Her attention span appeared fair. Her recent and remote memory were grossly intact. Her insight was limited. Her judgment was poor. Her impulse control appeared impaired. Vitals/I&O/Wt Last Vital Signs Temp 97.4 F L 12/26/23 12:06 Pulse 88 12/26/23 12:06 Resp 18 12/26/23 12:06 BP 162/67 12/26/23 12:06 Pulse Ox 96 12/26/23 12:06 O2 Del Method Room Air 12/26/23 12:06 O2 Flow Rate 0 12/20/23 05:30 FiO2 25 12/19/23 13:56 12/25/23 12/26/23 12/26/23 22:59 06:59 14:59 Intake Total 360 / 1080 0 / 1080 960 / 960 Balance 360 / 1080 0 / 1080 960 / 960 Weight last 48 hrs Weight 61.462 kg Weight 62.737 kg Weight 62.737 kg Physical Exam 2 Urinary Catheter Management: French: Cath Placed During This Visit: yes, but has since been removed by the nurse Reason for Continuing Indwelling Catheter: Accurate Measurement of Urinary Output in Critically Ill Patients Urinary Catheter Date of Insertion: 12/17/23 Urinary Catheter Time of Insertion: 18:55 Date Urinary Catheter Removed: 12/22/23 Time Urinary Catheter Discontinued: 10:45 Data NPU 12/21/23 04:40 12/20/23 04:09 A&P Assessment and plan (1) Major depressive disorder without psychotic features: (2) Intentional overdose: (3) Complicated bereavement: (4) Suicide attempt by drug overdose: Plan 78-year-old female currently on MedSurg after a potentially lethal suicide attempt with worsening depression noted. Patient will require acute inpatient psychiatric hospitalization at a geriatric facility. She was agreeable to starting an antidepressant to target her depression. She continues to require involuntary hospitalization. 1. Continue Lexapro 10mg to target severe depression. 2. Involuntary hospitalization and transfer to geriatric psychiatric facility necessary. 3. Patient placed on 96 hour hold to insure compliance with treatment given continued concerns for lethality and continued issues of significant depression and Bereavment. Attestations NPU 2 Medical Necessity Statement*: N/A. Please see primary team note for medical necessity. However, agree with discharge to inpatient geriatric psychiatry facility. Coding Level of Care Code Acute Code for Chg Fwd Diagnoses Major depressive disorder without psychotic features F32.9 Intentional overdose T50.902A Complicated bereavement F43.21 Suicide attempt by drug overdose T50.902A
[2023-12-26 14:23] LABS: SARS Covid-2 Antigen negative (Negative)
--- NOTE | 2023-12-26 14:29 | P.TS_ITS ---
Transfer Summary Providers Date of Admission: 12/17/23 18:12 Date of Discharge/Transfer: 12/26/23 Attending Provider at Admission: Evelia Garcia MD Attending Provider at Transfer: Arnold Jeffers MD Transfer Plans: Anticipated date of transfer: 12/26/23 . Diagnoses at Discharge Discharge Diagnosis (1) Major depressive disorder without psychotic features: Status: Acute (2) Intentional overdose: Status: Acute (3) Complicated bereavement: Status: Acute (4) Suicide attempt by drug overdose: Status: Acute Reason for Visit Reason for Visit AMS; SOB Hospital Course Hospital Course Patient is a 78-year-old white female who presented on December 16. There was concern for aspiration. Workup was negative for stroke. She was intubated and mechanically ventilated secondary to respiratory distress with hypoxic respiratory failure with concern of aspiration. She was admitted to the ICU. Blood pressure was significantly high, and she had been placed on nicardipine for management of this initially, as well as vancomycin and Zosyn for pneumonia. She had significant improvement over the course of admission till the . At that time she gave a history of overdosing herself with sleeping pills and other medication as well as having suicidal tendencies even prior to his suicidal attempt. Psychiatry was consulted, who recommended ad mission to a geriatric psych facility. During her hospital course she completed a adequate regimen for pneumonia including IV antibiotics, as well as follow-up Levaquin. On December 25, she was accepted for care at a geriatric facility. Psychiatry saw her prior to transfer and initiated on a 96-hour hold, as this was still appropriate. She was stable for transfer. Current medications that should be continued from a medication standpoint include atorvastatin 40 mg at night, metoprolol 25 mg twice daily, metformin 1000 mg twice daily, Norvasc 5 mg daily, hydralazine 50 mg p.o. 3 times daily. Psychiatry will decide regarding Lexapro which is currently at 10 mg daily. Physical Exam Narrative: General exam no distress Neck supple Cardiovascular regular rate and rhythm Lungs clear Abdomen soft Extremities no cyanosis clubbing or edema. Urinary Catheter Management: French: Cath Placed During This Visit: yes, but has since been removed by the nurse Reason for Continuing Indwelling Catheter: Accurate Measurement of Urinary Output in Critically Ill Patients Urinary Catheter Date of Insertion: 12/17/23 Urinary Catheter Time of Insertion: 18:55 Date Urinary Catheter Removed: 12/22/23 Time Urinary Catheter Discontinued: 10:45 TS Data Studies Completed and Pending Completed Studies During Hospitalization Category Date Time Status CT head wo con* [id number] Stat Cat Scan 12/17/23 17:18 Completed CXRP [XR chest 1V portable [id number]] Routine Exams 12/17/23 18:49 Completed CXRP [XR chest 1V portable [id number]] Stat Exams 12/17/23 18:05 Completed XR chest 1V portable [id number] Routine Exams 12/19/23 06:09 Completed XR chest 1V portable [id number] Stat Exams 12/17/23 17:18 Completed CV. echo complete* [id number] Stat Ultrasound 12/22/23 09:03 Completed Laboratory Last Values WBC 9.83 10^3/uL (3.29-11.43) 12/21/23 04:40 RBC 3.95 10^6/uL (3.85-5.65) 12/21/23 04:40 Hgb 12.10 g/dL (11.27-16.99) 12/21/23 04:40 Hct 35.9 % (36-47) L 12/21/23 04:40 MCV 90.9 fl (85-98) 12/21/23 04:40 MCH 30.6 pg (27-33) 12/21/23 04:40 MCHC 33.7 g/dL (30-55) 12/21/23 04:40 RDW 13.2 % (12.1-15.1) 12/21/23 04:40 Plt Count 211 10^3/cmm (157-399) 12/21/23 04:40 MPV 10.1 fL (7.4-10.4) 12/21/23 04:40 Neut % (Auto) 76.0 % 12/21/23 04:40 Lymph % (Auto) 12.5 % 12/21/23 04:40 [place] % (Auto) 9.9 % 12/21/23 04:40 Eos % (Auto) 0.6 % 12/21/23 04:40 Baso % (Auto) 0.6 % 12/21/23 04:40 Neut # (Auto) 7.47 10^3/uL (1.8-7.7) 12/21/23 04:40 Lymph # (Auto) 1.2 10^3/uL (0.8-4.8) 12/21/23 04:40 [place] # (Auto) 1.0 10^3/uL (0.2-0.9) H 12/21/23 04:40 Eos # (Auto) 0.1 10^3/uL (0.0-0.8) 12/21/23 04:40 Baso # (Auto) 0.1 10^3/uL (0.0-0.1) 12/21/23 04:40 Nucleated RBC % (auto) 0 % 12/21/23 04:40 Nucleated RBCs # 0.0 /100WBC 12/21/23 04:40 PT 12.80 SECONDS (12.1-14.9) 12/20/23 04:09 INR 0.94 (0.8-1.2) 12/20/23 04:09 Specimen Type Arterial 12/19/23 04:57 Sample Site Brachial, left 12/19/23 04:57 ABG pH 7.30 (7.35-7.45) L 12/19/23 04:57 ABG pCO2 35.5 mmHg (35-45) 12/19/23 04:57 ABG pO2 113.0 mmHg (80.0-100.0) H 12/19/23 04:57 ABG PO2/FiO2 Ratio 0 12/19/23 04:57 ABG HCO3 17.6 mmol/L (22-26) L 12/19/23 04:57 ABG O2 Saturation 98.9 12/19/23 04:57 ABG Base Excess -8.0 mmol/L (-2.0-2.0) L 12/19/23 04:57 Rell Test N/a 12/19/23 04:57 A-a O2 Gradient 2.4 mmHg (5-10) L 12/19/23 04:57 Hematocrit 43.2 % (37-47) 12/19/23 04:57 Hgb O2 Saturation 97.2 % (95-100) 12/19/23 04:57 Carboxyhemoglobin 1.1 %THgb (0.4-20.1) 12/19/23 04:57 Methemoglobin 0.7 % (0.4-1.5) 12/19/23 04:57 Total Hemoglobin 14.1 g/dL (12-16) 12/19/23 04:57 Sodium 138.0 mmol/L (131-143) 12/19/23 04:57 Potassium 4.0 mmol/L (3.5-5.0) 12/19/23 04:57 Glucose 131.0 mg/dL (70-115) H 12/19/23 04:57 Ionized Calcium 1.2 mmol/L (1.1-1.4) 12/19/23 04:57 O2 Delivery Device Vent 12/19/23 04:57 O2 Liters/Min 10.0 % 12/17/23 17:06 FiO2 25.0 % 12/19/23 04:57 Tidal Volume 0.35 12/19/23 04:57 PEEP 5.0 cmH20 12/19/23 04:57 Senior C Software Developer ID Wali 12/19/23 04:57 Sodium 141 mmol/L (136-145) 12/20/23 04:09 Potassium 3.7 mmol/L (3.5-5.1) 12/20/23 04:09 Chloride 111 mmol/L (98-107) H 12/20/23 04:09 Carbon Dioxide 17 mmol/L (22-29) L 12/20/23 04:09 Anion Gap 16.7 (5-19) 12/20/23 04:09 BUN 26 mg/dL (8-23) H 12/20/23 04:09 Creatinine 1.0 mg/dL (0.5-0.9) H 12/20/23 04:09 GFR Calculation Not Reportable 12/20/23 04:09 Glucose 111 mg/dL (65-115) 12/20/23 04:09 POC Glucose 271 mg/dL (70-110) H 12/26/23 11:49 Calculated Osmolality 297 mOsm/kg (285-295) H 12/20/23 04:09 Lactic Acid 2.5 mmol/L (0.5-2.2) H 12/18/23 03:19 Lactic Acid (Sepsis) 3.6 mmol/L (0.5-2.2) H 12/17/23 20:45 Calcium 8.3 mg/dL (8.5-10.5) L 12/20/23 04:09 Magnesium 2.0 mg/dL (1.7-2.3) 12/20/23 04:09 Total Bilirubin 0.7 mg/dL (0.15-1.2) 12/20/23 04:09 AST 13 U/L (0-32) 12/20/23 04:09 ALT 12 U/L (0-33) 12/20/23 04:09 Alkaline Phosphatase 70 U/L (35-105) 12/20/23 04:09 Creatine Kinase 81 U/L (26-192) 12/17/23 16:58 Troponin T 5th Gen ng/L 22 ng/L (0-10) H 12/18/23 10:31 Troponin T Baseline 13 ng/L (0-10) H 12/17/23 16:58 Troponin T 120 Minute 15.68 ng/L (0-10) H 12/17/23 19:01 Delta Troponin T 2.68 ABS# (0-10) 12/17/23 19:01 Troponin T Hi Sens 6Hr 18.92 ng/L (0-10) H 12/17/23 22:53 Troponin T Hi Sens 6Hr Delta 5.92 ng/L (0-12) 12/17/23 22:53 Total Protein 5.7 g/dL (6.6-8.7) L 12/20/23 04:09 Albumin 3.1 g/dL (3.5-5.2) L 12/20/23 04:09 Globulin 2.6 g/dL (1.3-4.6) 12/20/23 04:09 Lipase 49 U/L (13-60) 12/17/23 16:58 Procalcitonin 4.31 ng/mL (0-0.5) H 12/18/23 03:19 Urine Color Colorless (Yellow) 12/17/23 17:35 Urine Appearance Clear (CLEAR) 12/17/23 17:35 Urine pH 7 (5-7) 12/17/23 17:35 Ur Specific [place] 1.010 (1.005-1.030) 12/17/23 17:35 Urine Protein 1+ (Negative) H 12/17/23 17:35 Urine Glucose (UA) 2+ (Normal) H 12/17/23 17:35 Urine Ketones 1+ (Negative) H 12/17/23 17:35 Urine Blood 3+ (Negative) H 12/17/23 17:35 Urine Nitrate Negative (Negative) 12/17/23 17:35 Urine Bilirubin Neg (Negative) 12/17/23 17:35 Urine Urobilinogen Norm mg/dL (Negative) 12/17/23 17:35 Ur Leukocyte Esterase Negative (Negative) 12/17/23 17:35 Urine RBC 25-40 /hpf (0-2) H 12/17/23 17:35 Urine WBC None /hpf (0-5) 12/17/23 17:35 Ur Squamous Epith Cells None /hpf (0-5) 12/17/23 17:35 Amorphous Sediment Not Reportable 12/17/23 17:35 Urine Bacteria Trace /hpf (NONE) 12/17/23 17:35 Vancomycin Trough 11.4 ug/mL (10-15) 12/21/23 21:20 Urine Opiates Screen Negative ng/mL (Negative) 12/22/23 19:05 Ur Barbiturates Screen Negative ng/mL (Negative) 12/22/23 19:05 Ur Phencyclidine Scrn Negative ng/mL (Negative) 12/22/23 19:05 Ur Amphetamines Screen Negative ng/mL (Negative) 12/22/23 19:05 U Benzodiazepines Scrn Positive ng/mL (Negative) H 12/22/23 19:05 Urine Cocaine Screen Negative ng/mL (Negative) 12/22/23 19:05 U Marijuana (THC) Screen Negative ng/mL (Negative) 12/22/23 19:05 Serum Ketones Negative (Negative) 12/17/23 16:58 SARS-CoV-2 Ag (Rapid) negative (Negative) 12/26/23 13:[address] 12/17/23 17:18 IMPRESSION: 1. Mild chronic microvascular disease. 2. No acute intracranial lesion or injury. ASSESSMENT: ASPECTS ([place]oph[place] Stroke Program Early CT Score) is 10. Chest X-Ray 12/19/23 06:09 IMPRESSION: Patchy airspace opacity right perihilar region. No change when compared to the prior examination Recent Clincial Data Last Vital Signs Temp 97.4 F L 12/26/23 12:06 Pulse 88 12/26/23 12:06 Resp 18 12/26/23 12:06 BP 162/67 12/26/23 12:06 Pulse Ox 96 12/26/23 12:06 O2 Del Method Room Air 12/26/23 12:06 O2 Flow Rate 0 12/20/23 05:30 FiO2 25 12/19/23 13:56 Vital Signs Temp Pulse Resp BP Pulse Ox O2 Del Method 12/26/23 12:06 97.4 F L 88 18 162/67 96 Room Air 12/26/23 08:26 98 F 93 18 124/67 96 Room Air 12/26/23 03:30 98.2 F 84 17 125/54 95 Room Air Intake & Output/Weight 12/24/23 12/25/23 12/26/23 12/27/23 06:59 06:59 06:59 06:59 Intake Total 1010 / 1010 708 / 708 1080 / 1080 960 / 960 Balance 1010 / 1010 708 / 708 1080 / 1080 960 / 960 Weight 64.682 kg 62.737 kg 61.462 kg Vitals Last Vital Signs Temp 97.4 F L 12/26/23 12:06 Pulse 88 12/26/23 12:06 Resp 18 12/26/23 12:06 BP 162/67 12/26/23 12:06 Pulse Ox 96 12/26/23 12:06 O2 Del Method Room Air 12/26/23 12:06 O2 Flow Rate 0 12/20/23 05:30 FiO2 25 12/19/23 13:56 TS Medications Medications Acetaminophen (Acetaminophen 325 Mg Tablet) 650 mg PO Q6H PRN PRN Reason: MILD PAIN Last Admin: 12/23/23 11:31 Dose: 650 mg Amlodipine Besylate (Amlodipine 5 Mg Tablet) 5 mg PO DAILY [facility] Last Admin: 12/26/23 08:31 Dose: 5 mg Atorvastatin Calcium (Atorvastatin 40 Mg Tablet) 40 mg PO BEDTIME [facility] Last Admin: 12/25/23 20:15 Dose: 40 mg Enoxaparin Sodium (Enoxaparin 40 Mg/0.4 Ml Syringe) 40 mg SUBCUT DAILY [facility] Last Admin: 12/26/23 08:31 Dose: 40 mg Escitalopram Oxalate (Escitalopram 10 Mg Tablet) 10 mg PO DAILY [facility] Last Admin: 12/26/23 08:31 Dose: 10 mg Hydralazine HCl (Hydralazine 50 Mg Tablet) 50 mg PO TID [facility] Last Admin: 12/26/23 08:31 Dose: 50 mg Dextrose (D5w) 500 mls @ 0 mls/hr IV ONCE PRN; Protocol PRN Reason: Adult Acute Hypoglycemia Prot Dextrose (D10w) 125 mls @ 750 mls/hr IV PRN PRN; Protocol PRN Reason: Adult Acute Hypoglycemia Nursing Protocol Dextrose (D10w) 250 mls @ 1,000 mls/hr IV PRN PRN; Protocol PRN Reason: Adult Acute Hypoglycemia Nursing Protocol Insulin Human Lispro (Insulin Lispro 100 Unit/1 Ml) 0 unit SUBCUT WM&BEDTIME [facility]; Protocol Last Admin: 12/26/23 12:05 Dose: 10 unit Lanolin (Lanolin Oint 7 Gm) 1 applic TOPICAL PRN PRN PRN Reason: DRYNESS Last Admin: 12/19/23 17:31 Dose: 1 applic Levofloxacin (Levofloxacin 750 Mg Tablet) 750 mg PO EVERY OTHER DAY@0600 [facility]; Protocol Last Admin: 12/26/23 06:11 Dose: 750 mg Metoprolol Succinate (Metoprolol Succinate Er (24 Hr) 25 Mg Tablet) 25 mg PO BID [facility] Last Admin: 12/26/23 08:31 Dose: 25 mg Discontinued Medications Acetaminophen (Acetaminophen 650 Mg/20.3 Ml Udc) 1,000 mg PO Q6H PRN PRN Reason: MILD PAIN OR INCREASE TEMP Last Admin: 12/18/23 20:51 Dose: 1,000 mg Acetaminophen (Acetaminophen 325 Mg/10.15 Ml Udc) 1,000 mg PO Q6H PRN PRN Reason: MILD PAIN OR INCREASE TEMP Last Admin: 12/21/23 12:04 Dose: 1,000 mg Amlodipine Besylate (Amlodipine 10 Mg Tablet) 10 mg PO DAILY [facility] Amlodipine Besylate (Amlodipine 10 Mg Tablet) 10 mg PO DAILY [facility] Last Admin: 12/23/23 08:58 Dose: 10 mg Chlorhexidine Gluconate (Chlorhexidine Gluconate 4% Btl 118 Ml) 1 applic TOPICAL Q24H [facility] Last Admin: 12/20/23 02:11 Dose: Not Given Etomidate (Etomidate 2 Mg/Ml Inj Sdv 10 Ml) 20 mg IVP NOW ONE Stop: 12/17/23 18:10 Last Admin: 12/17/23 18:02 Dose: 20 mg Famotidine (Famotidine 20 Mg/2 Ml Inj) 20 mg IVP Q12H [facility] Last Admin: 12/23/23 06:15 Dose: 20 mg Guaifenesin (Guaifenesin 600 Mg Tablet) 600 mg PO ONCE ONE Stop: 12/19/23 09:01 Last Admin: 12/19/23 09:11 Dose: 600 mg Hydralazine HCl (Hydralazine 20 Mg/Ml Inj 1 Ml) 5 mg IVP ONCE ONE Stop: 12/17/23 17:38 Last Admin: 12/17/23 17:52 Dose: 5 mg Hydralazine HCl (Hydralazine 25 Mg Tablet) 25 mg PO Q6H PRN PRN Reason: HYPERTENSION Last Admin: 12/21/23 07:38 Dose: 25 mg Hydralazine HCl (Hydralazine 20 Mg/Ml Inj 1 Ml) 10 mg IVP Q4H PRN PRN Reason: HYPERTENSION Last Admin: 12/23/23 08:59 Dose: 10 mg Hydralazine HCl (Hydralazine 25 Mg Tablet) 25 mg PO BID [facility] Last Admin: 12/21/23 17:22 Dose: 25 mg Hydralazine HCl (Hydralazine 25 Mg Tablet) 25 mg PO TID [facility] Last Admin: 12/22/23 08:37 Dose: 25 mg Hydralazine HCl (Hydralazine 25 Mg Tablet) 50 mg PO TID [facility] Last Admin: 12/23/23 08:59 Dose: 50 mg Vancomycin HCl 1,000 mg/ (Sodium Chloride) 250 mls @ 250 mls/hr IV ONCE ONE; Protocol Stop: 12/17/23 18:50 Last Infusion: 12/17/23 21:22 Dose: Infused Piperacillin Sod/Tazobactam (Sod 3.375 gm/ Sodium Chloride) 50 mls @ 100 mls/hr IV ONCE ONE; Protocol Stop: 12/17/23 18:20 Last Infusion: 12/17/23 18:55 Dose: Infused Fentanyl (Sublimaze) 1,000 mcg in 100 mls @ 0 mls/hr IV .Q0M [facility]; Protocol Last Titration: 12/19/23 21:15 Dose: Infused Midazolam HCl (Versed) 100 mg in 100 mls @ 0 mls/hr IV .Q0M [facility]; Protocol Last Titration: 12/19/23 21:15 Dose: Infused Nicardipine/Sodium Chloride (Cardene) 20 mg in 200 mls @ 0 mls/hr IV .Q0M [facility]; Protocol Last Titration: 12/22/23 07:26 Dose: Infused Sodium Chloride (Sodium Chloride 0.9%) 1,000 mls @ 100 mls/hr IV .Q10H [facility] Last Infusion: 12/22/23 07:26 Dose: Infused Sodium Chloride (Sodium Chloride 0.9%) 1,000 mls @ 999 mls/hr IV .Q1H1M ONE Stop: 12/18/23 06:11 Last Infusion: 12/18/23 06:57 Dose: Infused Vancomycin HCl 1,000 mg/ (Sodium Chloride) 250 mls @ 250 mls/hr IV Q12H [facility]; Protocol Last Admin: 12/19/23 21:22 Dose: Not Given Piperacillin Sod/Tazobactam (Sod 3.375 gm/ Sodium Chloride) 50 mls @ 12.5 mls/hr IV Q8H [facility]; Protocol Last Infusion: 12/22/23 18:28 Dose: Infused Dexmedetomidine/Sodium Chloride (Precedex) 400 mcg in 100 mls @ 0 mls/hr IV .Q0M [facility]Y; Protocol Last Titration: 12/19/23 21:13 Dose: Infused Sodium Chloride (Sodium Chloride 0.9%) 1,000 mls @ 999 mls/hr IV .Q1H1M ONE Stop: 12/18/23 21:12 Last Admin: 12/22/23 07:28 Dose: Not Given Sodium Chloride (Sodium Chloride 0.9%) 1,000 mls @ 999 mls/hr IV .Q1H1M ONE Stop: 12/18/23 21:12 Last Infusion: 12/18/23 23:00 Dose: Infused Sodium Chloride (Sodium Chloride 0.9%) 500 mls @ 999 mls/hr IV .Q31M ONE Stop: 12/19/23 06:11 Last Infusion: 12/22/23 07:27 Dose: Infused Sodium Chloride (Sodium Chloride 0.9%) 1,000 mls @ 60 mls/hr IV .[id number] [facility] Last Infusion: 12/22/23 07:27 Dose: Infused Vancomycin HCl 750 mg/ Sodium (Chloride) 250 mls @ 250 mls/hr IV Q12H [facility]; Protocol Last Infusion: 12/23/23 19:08 Dose: Infused Insulin Human Lispro (Insulin Lispro 100 Unit/1 Ml) 0 unit SUBCUT Q6H [facility]; Protocol Last Admin: 12/22/23 07:26 Dose: Not Given Levofloxacin (Levofloxacin 750 Mg Tablet) 750 mg PO DAILY@0600 [facility]; Protocol Last Admin: 12/24/23 05:49 Dose: 750 mg Lisinopril (Lisinopril 5 Mg Tablet) 5 mg PO DAILY [facility] Last Admin: 12/22/23 08:37 Dose: 5 mg Lisinopril (Lisinopril 5 Mg Tablet) 5 mg PO ONCE ONE Stop: 12/18/23 12:17 Last Admin: 12/18/23 12:28 Dose: 5 mg Lisinopril (Lisinopril 5 Mg Tablet) 5 mg PO ONCE ONE Stop: 12/19/23 17:21 Last Admin: 12/19/23 17:32 Dose: 5 mg Lorazepam (Lorazepam 0.5 Mg Tablet) 0.5 mg PO DAILY [facility] Last Admin: 12/21/23 12:03 Dose: 0.5 mg Lorazepam (Lorazepam 0.5 Mg Tablet) 0.5 mg PO BEDTIME [facility] Last Admin: 12/25/23 20:16 Dose: 0.5 mg Metoprolol Succinate (Metoprolol Succinate Er (24 Hr) 25 Mg Tablet) 25 mg PO DAILY [facility] Last Admin: 12/21/23 09:17 Dose: 25 mg Metoprolol Succinate (Metoprolol Succinate Er (24 Hr) 25 Mg Tablet) 25 mg PO ONCE ONE Stop: 12/19/23 17:22 Last Admin: 12/19/23 17:32 Dose: 25 mg Propofol (Propofol 10 Mg/Ml Sdv 20 Ml) 100 mg IVP ONCE ONE Stop: 12/17/23 18:26 Last Admin: 12/17/23 18:26 Dose: 100 mg Propranolol HCl (Propranolol 20 Mg Tablet) 20 mg PO ONCE ONE Stop: 12/21/23 17:13 Last Admin: 12/21/23 17:22 Dose: 20 mg Vecuronium [place] (Vecuronium 10 Mg Sdv) 10 mg IVP ONCE ONE Stop: 12/17/23 18:09 Last Admin: 12/17/23 18:10 Dose: 10 mg Allergies No Known Allergies Allergy (Verified 03/05/22 12:14) Home Medications atorvastatin 40 mg tablet 40 mg PO DAILY 12/18/23 [History Confirmed 12/18/23] glipizide 5 mg tablet 2.5 mg PO DAILY 12/18/23 [History Confirmed 12/18/23] lisinopril 5 mg tablet 5 mg PO DAILY 12/18/23 [History Confirmed 12/18/23] metformin 1,000 mg tablet 1,000 mg PO BID 12/18/23 [History Confirmed 12/18/23] metoprolol succinate 25 mg tablet,extended release 24 hr 25 mg PO QAM 12/18/23 [History Confirmed 12/18/23] tramadol 50 mg tablet 50 mg PO BID PRN Pain 12/18/23 [History Confirmed 12/18/23] Discharge Plan Discharge Patient Disposition: Xfer Psychiatric Hosp Condition: Stable Prescriptions: No Action atorvastatin 40 mg tablet 40 mg PO DAILY tramadol 50 mg tablet 50 mg PO BID PRN (Reason: Pain) metformin 1,000 mg tablet 1,000 mg PO BID lisinopril 5 mg tablet 5 mg PO DAILY metoprolol succinate 25 mg tablet extended release 24 hr 25 mg PO QAM glipizide 5 mg tablet 2.5 mg PO DAILY Discharge Orders: Transfer Out of Facility (Order); Ordered 12/26/23 Ordered By: Arnold Jeffers Discharge Diet: Cardiac Discharge Activity: Increase activity as tolerated Patient Instructions: Altered Mental Status (ED) Transfer Attestations Time Spent in Transfer Care: greater than 30 min Quality Metrics Clinical Quality Measures [ No reported AMI, CVA or VTE this stay] Coding Level of Care Code 45854 Total time (in minutes) for Discharge: 44 Diagnoses Major depressive disorder without psychotic features F32.9 Intentional overdose T50.902A Complicated bereavement F43.21 Suicide attempt by drug overdose T50.902A
--- NOTE | 2023-12-26 15:54 | PC.NURSE ---
96 hr rights reviewed with patient with assistance of [facility] security sergeant Kj @[id number]. All education reviewed. No verbalized comments or concerns at this time. Patient copy left @bedside with patient.
[2023-12-26 16:24] VITALS: BP 143/82; PULSE 73; RESP 18; TEMP 36.2; O2SAT 96
[2023-12-26 16:42] LABS: Glucose Point of Care 181 mg/dL (70-110)
--- NOTE | 2023-12-26 17:53 | PC.NURSE ---
Facility will not accept patient tonight without court signed document of 96 hour hold. This nurse contacted ROWAN Yung and this is being arranged. Contacted [facility] Salazar to cancel transportation. Facility stated they will hold bed for 24 hours.
[2023-12-26 20:00] VITALS: BP 120/61; PULSE 81; RESP 16; TEMP 36.9; O2SAT 97
[2023-12-26 20:34] LABS: Glucose Point of Care 246 mg/dL (70-110)
[2023-12-26] MEDS: atorvastatin 40 mg Tablet PO (20:53)
[2023-12-26] MEDS: acetaminophen 325 mg Tablet 650 MG PO (23:55)
[2023-12-27 00:57] VITALS: BP 114/59; PULSE 89; RESP 16; TEMP 36.9; O2SAT 94
[2023-12-27 05:16] VITALS: BP 120/67; PULSE 85; RESP 16; TEMP 36.9; O2SAT 94
[2023-12-27 06:32] LABS: Glucose Point of Care 133 mg/dL (70-110)
--- NOTE | 2023-12-27 07:22 | PM.PN ---
Subjective Subjective: No changes overnight. Accepting facility, geriatric psych, requested that I sign 96 hour hold by a resident services director prior to transfer which should happen this morning. Patient denies complaints. Medications: Reviewed: Yes Vitals/I&O/Wt Last Vital Signs Temp 98.4 F 12/27/23 05:16 Pulse 85 12/27/23 05:16 Resp 16 12/27/23 05:16 BP 120/67 12/27/23 05:16 Pulse Ox 94 12/27/23 05:16 O2 Del Method Room Air 12/27/23 05:16 O2 Flow Rate 0 12/20/23 05:30 FiO2 25 12/19/23 13:56 12/26/23 12/27/23 12/27/23 22:59 06:59 14:59 Intake Total 720 / 1680 240 / 1920 Balance 720 / 1680 240 / 1920 Weight last 48 hrs Weight 62.596 kg Weight 61.462 kg Weight 62.737 kg Physical Exam Narrative: General exam no distress Neck supple Cardiovascular regular rate and rhythm Lungs clear Abdomen soft Extremities no cyanosis clubbing or edema. Urinary Catheter Management: French: Cath Placed During This Visit: yes, but has since been removed by the nurse Reason for Continuing Indwelling Catheter: Accurate Measurement of Urinary Output in Critically Ill Patients Urinary Catheter Date of Insertion: 12/17/23 Urinary Catheter Time of Insertion: 18:55 Date Urinary Catheter Removed: 12/22/23 Time Urinary Catheter Discontinued: 10:45 Data 12/21/23 04:40 12/20/23 04:09 A&P Assessment and plan (1) Major depressive disorder without psychotic features: Status post overdose with suicide attempt. To go to geriatric psychiatry today. Continue Lexapro (2) Intentional overdose: Status post extubation and respiratory failure. Sputum culture showed normal upper respiratory liliana. She was treated with Levaquin and an adequate course. (3) Complicated bereavement: (4) Suicide attempt by drug overdose: Plan Sepsis, resolved Hypertension, controlled on current medications Attestations Medical Necessity Statement*: Appropriate for transfer Diagnoses Major depressive disorder without psychotic features F32.9 Intentional overdose T50.902A Complicated bereavement F43.21 Suicide attempt by drug overdose T50.902A Time Spent (min) 12
[2023-12-27] MEDS: escitalopram 10 mg Tablet PO (08:32)
[2023-12-27] MEDS: enoxaparin 40 mg/0.4 mL Syringe SUBCUT (08:32)
[2023-12-27 08:41] VITALS: BP 139/64; PULSE 89; RESP 20; TEMP 36.6; O2SAT 96
[2023-12-27] MEDS: amlodipine 5 mg Tablet PO (09:00)
[2023-12-27] MEDS: metoprolol succinate ER (24 HR) 25 mg Tablet PO (09:01)
[2023-12-27] MEDS: hyDRALAzine 50 mg Tablet PO (09:01)
[2023-12-27 11:10] LABS: Glucose Point of Care 414 mg/dL (70-110)
[2023-12-27 11:38] VITALS: BP 120/60; PULSE 82; RESP 18; TEMP 36.4; O2SAT 94
[2023-12-27 11:45] LABS: Glucose Point of Care 399 mg/dL (70-110)
[2023-12-27] MEDS: insulin lispro 100 unit/1 mL SUBCUT (11:47)
--- NOTE | 2023-12-27 12:04 | PC.NURSE ---
Report called to [facility]
== END 2023-12-27 12:15 | DRG 871 ==
LOC: ER 17:32 → ICU 18:30 → MEDSURG 12-22 19:13
PROVIDERS: Internal Medicine; Admitting Provider Internal Medicine; Emergency Provider Family Medicine; Visit Provider Internal Medicine
DX: A41.9 Sepsis, unspecified organism (principal); G93.41 Metabolic encephalopathy; J69.0 Pneumonitis due to inhalation of food and vomit; T65.92XA Toxic effect of unspecified substance, intentional self-harm, initial encounter; R65.20 Severe sepsis without septic shock; E11.9 Type 2 diabetes mellitus without complications; I10 Essential (primary) hypertension; R33.9 Retention of urine, unspecified; F32.9 Major depressive disorder, single episode, unspecified; Z11.52 Encounter for screening for COVID-19; Z79.84 Long term (current) use of oral hypoglycemic drugs; Z63.4 Disappearance and death of family member
CPT/HCPCS: 31500; 36415; 36416; 36600; 51702; 70450; 71045; 80051; 80053; 80202; 80306; 81001; 82009; 82330; 82550; 82805; 82962; 83605; 83690; 83735; 84145; 84484; 85025; 85610; 87040; 87070; 87086; 87205; 87426; 93005; 93306; 94002; 94003; 94664; 94799; 96365; 96366; 96367; 96372; 96375; 96376; 97116; 97161; 97165; 97530; 99291; J0360; J1650; J1815; J2250; J2543; J2704; J3010; J3370; J3490; J7030; J7050

== ENCOUNTER 2024-06-18 12:52 | Outpatient (CLI) | payer MEDICARE, SELFPAY ==
--- NOTE | 2024-06-18 12:55 | XR_ITS ---
WS: [id number] DEXA (DUAL ENERGY X-RAY ABSORPTIOMETRY) Bone mineral density was performed using a [employer] machine. HISTORY: Osteoporosis COMPARISON: None available. Lumbar spine BMD (L1-L4): 0.962 g/cm2 T score: -1.8 Z score: 0.2 Total hip BMD: Left: 0.880 g/cm2. T score: -1.0 Z score: 1.1 Right: 0.722 g/cm2. T score: -2.3 Z score: -0.1 10 year probability of a major osteoporotic fracture is 16.5%. XR/XR DEXA axial skeleton* [id number] IMPRESSION: OSTEOPENIA based upon the WHO classification for females.
== END 2024-06-18 12:53 | disposition home or self-care (01) ==
LOC: RAD 12:52
PROVIDERS: PCP Internal Medicine; Visit Provider Internal Medicine
DX: Z13.820 Encounter for screening for osteoporosis (principal); M81.0 Age-related osteoporosis without current pathological fracture; M85.80 Other specified disorders of bone density and structure, unspecified site
CPT/HCPCS: 77080

== ENCOUNTER 2024-11-30 13:33 | Inpatient (IN) | payer MEDICARE, SELFPAY ==
[2024-11-30] VITALS (44 sets, daily range): BP systolic 102–222; BP diastolic 64–172; PULSE 66–88; RESP 14–20; TEMP 36.3; O2SAT 92–100; BMI 23.3
--- NOTE | 2024-11-30 13:37 | CT_ITS ---
WS: [id number] CT HEAD TECHNIQUE: Noncontrast CT of the head obtained from the skullbase to the vertex. CLINICAL INFORMATION: Altered mental status COMPARISON: 2023 DLP: 1024.[address] scans at [facility] use at least one of these dose optimization techniques: automated exposure control; mA and/or kV adjustment per patient size (includes targeted exams where dose is matched to clinical indication); or iterative reconstruction. FINDINGS: No evidence of intracranial hemorrhage or mass effect. Ventricular system and basal cisterns are patent. Mild small vessel changes with moderate parenchymal volume loss. Benign basal ganglia calcifications. Tiny chronic lacunar infarct RIGHT basal ganglia. No evidence of mass or mass effect. Paranasal sinuses and mastoid air cells are well aerated. .Normal visualized soft tissues. CT/CT head wo con* [id number] IMPRESSION: 1. No evidence of intracranial hemorrhage or mass effect. 2. No acute intracranial findings.
--- NOTE | 2024-11-30 13:38 | ECG_ITS ---
[facility] Test Date: 2024-11-30 Pat Name: Lety Singh Department: Room: Gender: Female [employer]: : [id number] Requested By: Jerry Morgan Order Number: [id number] Radha MD: Roberto Metzger M.D. Measurements Intervals [place] Rate: 83 P: 78 CO: 166 QRS: 67 QRSD: 85 T: 60 QT: 436 QTc: 513 Interpretive Statements SINUS RHYTHM MODERATE ST DEPRESSION [0.05+ mV ST DEPRESSION] PROLONGED QT INTERVAL Compared to ECG 12/21/2023 20:12:02 ST (T wave) deviation now present Prolonged QT interval now present T-wave abnormality no longer present Electronically Signed On 11-30-2024 14:20:20 CDT by Roberto Metzger M.[email or web address]
--- NOTE | 2024-11-30 13:39 | XR_ITS ---
WS: [id number] Exam: XR chest 1V portable [id number] Date/Time of Exam: 11/30/2024 1:41 PM Reason For Exam: Postintubation: ET/gastric tube Comparison 12/19/2023. ET tube is in place about 6 cm above the fco in good position. An enteric tube ends in the fundus of the stomach. There is diffuse infiltrate in the mid and lower RIGHT lung. Superimposed chronic RIGHT perihilar changes are also present. LEFT lung is clear. No pneumothorax. No pleural effusion. Heart size is normal. The mediastinum is normal in contour. XR/XR chest 1V portable [id number] IMPRESSION: 1. ET tube and enteric tube both in satisfactory position. 2. Diffuse infiltrate throughout the mid and lower RIGHT lung as well as chroni c superimposed RIGHT perihilar changes.
[2024-11-30 13:43] LABS: ABG PCO2 36.8 mmHg (35-45); Alveolar-Arterial Oxygen Gradi 48.4 mmHg (5-10); Arterial Blood Gas Hematocrit 51.2 % (37-47); Base Excess ABG -1.3 mmol/L (-2.0-2.0); Blood Gas Allen Test Pos; Blood Gas Operator Identificat WALCI; Blood Gas Sample Site Radial, left; Blood Gas Sample Type Arterial; Carboxyhemoglobin 0.7 %THgb (0.4-20.1); HCO3 ABG 22.9 mmol/L (22-26); HGB O2 Sat 99.3 % (95-100); Ionized Calcium Level - ABG 1.2 mmol/L (1.1-1.4); Methemoglobin 0.2 % (0.4-1.5); Oxygen Device VENT; Oxygen Saturation ABG > 99.1; PO2 FiO2 Ratio Arterial Blood 288; Potassium Level - ABG 3.5 mmol/L (3.5-5.0); Total Hemoglobin 16.7 g/dL (12-16)
--- NOTE | 2024-11-30 13:49 | PC.RESP ---
pt came in by ambulance already intubated by ems with a 7.5 ett, 22@lip at approx 1330.
[2024-11-30] MEDS: nicardipine 20 MG/200 ML PREMIX 50 MG IV (13:57)
--- NOTE | 2024-11-30 14:09 | W.ED.OVERDOS ---
HPI - Overdose General: Chief Complaint: Overdose Stated Complaint: OVERDOSE Time Seen by Provider: 11/30/24 13:37 History of Present Illness: 79-year-old female brought in by EMS intubated on arrival. Patient was found unresponsive by the family was a bottle of diphenhydramine Hydramine and a bottle of diphenhydramine ibuprofen combination. She took an unknown number of pills. Her family last had contact with her in her normal state around 1 AM this morning. She was found around 1 PM this afternoon. EMS reports she initially had a GCS of 6 became more unresponsive patient was intubated with RSI with rocuronium and etomidate. She was then given Versed and fentanyl and route. She is sedated unresponsive when she first arrives Limited exam Related Data Home Medications ?Medication ?Instructions ?Recorded ?Confirmed atorvastatin 40 mg tablet 40 mg PO DAILY 12/18/23 12/18/23 glipizide 5 mg tablet 2.5 mg PO DAILY 12/18/23 12/18/23 lisinopril 5 mg tablet 5 mg PO DAILY 12/18/23 12/18/23 metformin 1,000 mg tablet 1,000 mg PO BID 12/18/23 12/18/23 metoprolol succinate 25 mg 25 mg PO QAM 12/18/23 12/18/23 tablet,extended release 24 hr tramadol 50 mg tablet 50 mg PO BID PRN Pain 12/18/23 12/18/23 Allergies Allergy/AdvReac Type Severity Reaction Status Date / Time No Known Allergies Allergy Verified 03/05/22 12:14 Review of Systems General: Reports: ROS unobtainable due to endotracheal tube [facility] ED PFSH: Medical History Hypertension Diabetes mellitus Physical Exam HENMT: COMMON NORMALS: normocephalic and atraumatic HEAD & SCALP: normocephalic and atraumatic Resp: COMMON NORMALS: normal respiratory effort, No retractions, No use of accessory muscles and clear to auscultation bilaterally AUSCULTATION: clear to auscultation bilaterally Cardio: COMMON NORMALS: regular rate, regular rhythm and No murmurs present (Cardio) RATE: regular rate RHYTHM: regular rhythm GI: COMMON NORMALS: Soft to palpation and No hepatosplenomegaly present AUSCULTATION: Yes normoactive bowel sounds PALPATION: Yes Soft to palpation, No Tenderness to palpation present (GI), No Guarding due to palpation present (GI) and Yes No hepatosplenomegaly present OTHER: Bladder palpable 2 fingerbreadths above the umbilicus Extremity: COMMON NORMALS: normal to inspection, capillary refill normal, no clubbing, cyanosis or edema, no calf tenderness and no pedal edema Course Vital Signs: Vital signs: Vital Signs Pulse Rate 73 11/30/24 15:00 Respiratory Rate 16 11/30/24 15:00 Blood Pressure 115/76 11/30/24 15:00 Pulse Oximetry 95 11/30/24 15:00 Oxygen Delivery Me thod Mechanical Ventil ation 11/30/24 14:08 Fraction of Inspir ed Oxygen 60 11/30/24 14:31 MDM - Overdose Medical Decision Making Respiratory failure secondary to diphenhydramine overdose. Other toxins so far negative. Patient does look like she has right middle and bilateral lower lobe pneumonia started on Zosyn. Added fentanyl and Versed for sedation continue ventilator support for now discussed with Dr. Antunez orders written for ICU Medical Records I reviewed the patient's medical records. Lab Data I reviewed the patient's lab results. 11/30/24 14:00 11/30/24 14:[address] 11/30/24 13:37 IMPRESSION: 1. No evidence of intracranial hemorrhage or mass effect. 2. No acute intracranial findings. Chest X-Ray 11/30/24 13:39 IMPRESSION: 1. ET tube and enteric tube both in satisfactory position. 2. Diffuse infiltrate throughout the mid and lower RIGHT lung as well as chronic superimposed RIGHT perihilar changes. Laboratory Results WBC 6.24 10^3/uL (3.29-11.43) 11/30/24 14:00 RBC 5.38 10^6/uL (3.85-5.65) 11/30/24 14:00 Hgb 17.10 g/dL (11.27-16.99) H 11/30/24 14:00 Hct 48.8 % (36-47) H 11/30/24 14:00 MCV 90.7 fl (85-98) 11/30/24 14:00 MCH 31.8 pg (27-33) 11/30/24 14:00 MCHC 35.0 g/dL (30-55) 11/30/24 14:00 RDW 12.8 % (12.1-15.1) 11/30/24 14:00 Plt Count 316 10^3/cmm (157-399) 11/30/24 14:00 MPV 10.8 fL (7.4-10.4) H 11/30/24 14:00 Neut % (Auto) 52.4 % 11/30/24 14:00 Lymph % (Auto) 36.9 % 11/30/24 14:00 [place] % (Auto) 8.0 % 11/30/24 14:00 Eos % (Auto) 1.4 % 11/30/24 14:00 Baso % (Auto) 1.0 % 11/30/24 14:00 Neut # (Auto) 3.27 10^3/uL (1.8-7.7) 11/30/24 14:00 Lymph # (Auto) 2.3 10^3/uL (0.8-4.8) 11/30/24 14:00 [place] # (Auto) 0.5 10^3/uL (0.2-0.9) 11/30/24 14:00 Eos # (Auto) 0.1 10^3/uL (0.0-0.8) 11/30/24 14:00 Baso # (Auto) 0.1 10^3/uL (0.0-0.1) 11/30/24 14:00 Nucleated RBC % (auto) 0 % 11/30/24 14:00 Nucleated RBCs # 0.0 /100WBC 11/30/24 14:00 Specimen Type Arterial 11/30/24 15:39 Sample Site Brachial, right 11/30/24 15:39 ABG pH 7.39 (7.35-7.45) 11/30/24 15:39 ABG pCO2 35.1 mmHg (35-45) 11/30/24 15:39 ABG pO2 134.0 mmHg (80.0-100.0) H 11/30/24 15:39 ABG PO2/FiO2 Ratio 223 11/30/24 15:39 ABG HCO3 21.1 mmol/L (22-26) L 11/30/24 15:39 ABG O2 Saturation > 99.1 11/30/24 15:39 ABG Base Excess -3.2 mmol/L (-2.0-2.0) L 11/30/24 15:39 Rell Test Pos 11/30/24 15:39 A-a O2 Gradient 32.1 mmHg (5-10) H 11/30/24 15:39 Hematocrit 49.1 % (37-47) H 11/30/24 15:39 Hgb O2 Saturation 98.6 % (95-100) 11/30/24 15:39 Carboxyhemoglobin 0.7 %THgb (0.4-20.1) 11/30/24 15:39 Methemoglobin 0.0 % (0.4-1.5) L 11/30/24 15:39 Total Hemoglobin 16.0 g/dL (12-16) 11/30/24 15:39 Sodium 133.0 mmol/L (131-143) 11/30/24 15:39 Potassium 3.6 mmol/L (3.5-5.0) 11/30/24 15:39 Glucose 293.0 mg/dL (70-115) H 11/30/24 15:39 Ionized Calcium 1.2 mmol/L (1.1-1.4) 11/30/24 15:39 O2 Delivery Device Vent 11/30/24 15:39 FiO2 60.0 % 11/30/24 15:39 Tidal Volume 0.40 11/30/24 15:39 PEEP 6.0 cmH20 11/30/24 15:39 Centerless Grinder ID [place] 11/30/24 15:39 Sodium 137 mmol/L (136-145) 11/30/24 14:00 Potassium 4.1 mmol/L (3.5-5.1) 11/30/24 14:00 Chloride 97 mmol/L (98-107) L 11/30/24 14:00 Carbon Dioxide 23 mmol/L (22-29) 11/30/24 14:00 Anion Gap 21.1 (5-19) H 11/30/24 14:00 BUN 14 mg/dL (8-23) 11/30/24 14:00 Creatinine 1.0 mg/dL (0.5-0.9) H 11/30/24 14:00 GFR Calculation Not Reportable 11/30/24 14:00 Glucose 204 mg/dL (65-115) H 11/30/24 14:00 Calculated Osmolality 290 mOsm/kg (285-295) 11/30/24 14:00 Lactic Acid 1.5 mmol/L (0.5-2.2) 11/30/24 14:00 Calcium 10.0 mg/dL (8.5-10.5) 11/30/24 14:00 Magnesium 2.2 mg/dL (1.7-2.3) 11/30/24 14:00 Total Bilirubin 0.9 mg/dL (0.15-1.2) 11/30/24 14:00 AST 29 U/L (0-32) 11/30/24 14:00 ALT 24 U/L (0-33) 11/30/24 14:00 Alkaline Phosphatase 97 U/L (35-105) 11/30/24 14:00 Creatine Kinase 137 U/L (26-192) 11/30/24 14:00 Troponin T Baseline 9 ng/L (0-10) 11/30/24 14:00 Total Protein 7.7 g/dL (6.6-8.7) 11/30/24 14:00 Albumin 4.9 g/dL (3.5-5.2) 11/30/24 14:00 Globulin 2.8 g/dL (1.3-4.6) 11/30/24 14:00 Lipase 81 U/L (13-60) H 11/30/24 14:00 Urine Color Yellow (Yellow) 11/30/24 13:55 Urine Appearance Clear (CLEAR) 11/30/24 13:55 Urine pH 8 (5-7) A 11/30/24 13:55 Ur Specific [place] 1.010 (1.005-1.030) 11/30/24 13:55 Urine Protein 1+ (Negative) A 11/30/24 13:55 Urine Glucose (UA) 1+ (Normal) H 11/30/24 13:55 Urine Ketones Negative (Negative) 11/30/24 13:55 Urine Blood 3+ (Negative) A 11/30/24 13:55 Urine Nitrate Negative (Negative) 11/30/24 13:55 Urine Bilirubin Neg (Negative) 11/30/24 13:55 Urine Urobilinogen Neg mg/dL (Negative) 11/30/24 13:55 Ur Leukocyte Esterase 1+ (Negative) H 11/30/24 13:55 Urine RBC 51-100 /hpf (0-2) H 11/30/24 13:55 Urine WBC 0-5 /hpf (0-5) 11/30/24 13:55 Ur Squamous Epith Cells 0-5 /hpf (0-5) 11/30/24 13:55 Amorphous Sediment Not Reportable 11/30/24 13:55 Urine Bacteria None seen /hpf (NONE) 11/30/24 13:55 Hyaline Casts 0.40 /lpf 11/30/24 13:55 Salicylates < 0.3 mg/dL (3-10) L 11/30/24 14:00 Urine Opiates Screen Negative ng/mL (Negative) 11/30/24 13:55 Acetaminophen < 5.0 ug/mL (10-30) L 11/30/24 14:00 Ur Barbiturates Screen Negative ng/mL (Negative) 11/30/24 13:55 Ur Phencyclidine Scrn Negative ng/mL (Negative) 11/30/24 13:55 Ur Amphetamines Screen Negative ng/mL (Negative) 11/30/24 13:55 U Benzodiazepines Scrn Negative ng/mL (Negative) 11/30/24 13:55 Urine Cocaine Screen Negative ng/mL (Negative) 11/30/24 13:55 U Marijuana (THC) Screen Negative ng/mL (Negative) 11/30/24 13:55 Ethyl Alcohol < 10 mg/dL (0-10) 11/30/24 14:00 Influenza A (PCR) Negative (Negative) 11/30/24 14:02 Influenza Type B (PCR) Negative (Negative) 11/30/24 14:02 RSV (PCR) Negative (Negative) 11/30/24 14:02 SARS-CoV-2 (PCR) Negative (Negative) 11/30/24 14:02 All radiology interpretation(s) finalized by discharge Discharge Plan Discharge Patient Disposition: Admitted As Inpatient Clinical Impression: Suicide attempt by drug overdose, Major depressive disorder without psychotic features, Pneumonia Condition: Stable Prescriptions: No Action atorvastatin 40 mg tablet 40 mg PO DAILY tramadol 50 mg tablet 50 mg PO BID PRN (Reason: Pain) metformin 1,000 mg tablet 1,000 mg PO BID lisinopril 5 mg tablet 5 mg PO DAILY metoprolol succinate 25 mg tablet extended release 24 hr 25 mg PO QAM glipizide 5 mg tablet 2.5 mg PO DAILY Referrals: Harpreet Choudhury DO [Primary Care Provider] - Print Language: Tamazight Coding Level of Care Code ED Product Inspection Coordinator for [facility]
[2024-11-30 14:30] LABS: Bacteria Urine None Seen /hpf; RBC Urine 51-100 /hpf (0-2); Squamous Epithelial Cell Urine 0-5 /hpf (0-5); WBC Urine 0-5 /hpf (0-5)
[2024-11-30 14:31] LABS: Add Urine Culture? Yes; Add Urine Microscopic? YES; Bilirubin Urine Neg (Negative); Blood Urine 3+ (Negative); Glucose Urine UA 1+ (Normal); Ketones Urine Negative (Negative); Nitrate Urine Negative (Negative); Protein Urine 1+ (Negative); Urine Appearance Clear (CLEAR); Urine Color Yellow (Yellow); Urobilinogen Urine Neg (Negative); pH Urine 8 (5-7)
[2024-11-30 14:33] LABS: Basophils # 0.1 10^3/uL (0.0-0.1); Eosinophils # 0.1 10^3/uL (0.0-0.8); Eosinophils % 1.4 %; Hematocrit 48.8 % (36-47); Lymphocytes # 2.3 10^3/uL (0.8-4.8); Lymphocytes % 36.9 %; Mean Corpuscular Hemoglobin 31.8 pg (27-33); Mean Corpuscular Volume 90.7 fl (85-98); Mean Platelet Volume 10.8 fL (7.4-10.4); Monocytes # 0.5 10^3/uL (0.2-0.9); Neutrophils # 3.27 10^3/uL (1.8-7.7); Neutrophils % 52.4 %; Nucleated Red Blood Cells % 0 %; Platelet Count 316 10^3/cmm (157-399); Red Blood Count 5.38 10^6/uL (3.85-5.65); Red Cell Distribution Width 12.8 % (12.1-15.1); White Blood Count 6.24 10^3/uL (3.29-11.43)
[2024-11-30 14:43] LABS: Leukocyte Esterase Urine 1+ (Negative)
[2024-11-30 14:44] LABS: Amphetamines Screen Urine Negative (Negative); Barbiturates Screen Urine Negative (Negative); Benzodiazepines Screen Urine Negative (Negative); Cocaine Screen Urine Negative (Negative); Opiate Screen Urine Negative (Negative); PCP Screen Urine Negative (Negative); THC Screen Urine Negative (Negative)
--- NOTE | 2024-11-30 14:44 | PC.NURSE ---
POISON CONTROL NOTIFIED OF PATIENT CONSUMPTION OF UNKNOWN AMOUNT OF IBUPROFEN PM AND NIGHTTIME SLEEP AID. VERBAL INSTRUCTIONS FROM KATIE WITH POISON CONTROL TO KEEP THE POTASSIUM AND MAGNESIUM LEVELS ON THE HIGH END OF NORMAL DUE TO RISK OF TORSADES. VERBAL INSTRUCTIONS FOR SUPPORTIVE CARE AND TO MONITOR FOR SEIZURE ACTIVITY AND ACIDOSIS. PROVIDER NOTIFIED.
[2024-11-30 14:56] LABS: Lactic Sepsis W/Reflex 1.5 mmol/L (0.5-2.2)
[2024-11-30 14:57] LABS: Troponin(5th) Baseline 9 ng/L (0-10)
[2024-11-30 15:01] LABS: Influenza A NEGATIVE (Negative); Influenza B NEGATIVE (Negative); Respiratory Syncytial Virus Ce NEGATIVE (Negative); SARS-CoV-2 PCR NEGATIVE (Negative)
[2024-11-30] MEDS: piperacillin-tazobactam 3.375 GM in sodium chloride 0.9% (plus) 50 ML IV ×2 (15:05→23:21)
[2024-11-30 15:09] LABS: Alanine Aminotransferase 24 U/L (0-33); Albumin Level 4.9 g/dL (3.5-5.2); Alkaline Phosphatase 97 U/L (35-105); Anion Gap 21.1 (5-19); Aspartate Amino Transferase 29 U/L (0-32); Blood Urea Nitrogen 14 mg/dL (8-23); Carbon Dioxide 23 mmol/L (22-29); Chloride 97 mmol/L (98-107); Creatine Phosphokinase 137 U/L (26-192); Creatinine Clr Calc Pharmacy 42.2175; Globulin 2.8 g/dL (1.3-4.6); Glucose 204 mg/dL (65-115); Lipase 81 U/L (13-60); Magnesium 2.2 mg/dL (1.7-2.3); Osmolality Calculated 290 mOsm/kg (285-295); Potassium 4.1 mmol/L (3.5-5.1); Sodium 137 mmol/L (136-145); Total Bilirubin 0.9 mg/dL (0.15-1.2); Total Protein 7.7 g/dL (6.6-8.7)
[2024-11-30 15:10] LABS: Acetaminophen < 5.0 ug/mL (10-30); Alcohol Level < 10 mg/dL (0-10); Salicylate < 0.3 mg/dL (3-10)
[2024-11-30] MEDS: fentaNYL 1,000 MCG/100 ML BAG 2.5 MCG IV (15:11)
[2024-11-30] MEDS: midazolam hcl 100 MG/100 ML BAG IV (15:14)
--- NOTE | 2024-11-30 15:44 | ECG_ITS ---
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
[2024-11-30 15:51] LABS: ABG PCO2 35.1 mmHg (35-45); ABG PH Result 7.39 (7.35-7.45); Alveolar-Arterial Oxygen Gradi 32.1 mmHg (5-10); Arterial Blood Gas Hematocrit 49.1 % (37-47); Base Excess ABG -3.2 mmol/L (-2.0-2.0); Blood Gas Allen Test Pos; Blood Gas Operator Identificat WALCI; Blood Gas Sample Site Brachial, right; Blood Gas Sample Type Arterial; Carboxyhemoglobin 0.7 %THgb (0.4-20.1); HCO3 ABG 21.1 mmol/L (22-26); HGB O2 Sat 98.6 % (95-100); Ionized Calcium Level - ABG 1.2 mmol/L (1.1-1.4); Oxygen Device VENT; Oxygen Saturation ABG > 99.1; PO2 FiO2 Ratio Arterial Blood 223; Potassium Level - ABG 3.6 mmol/L (3.5-5.0)
--- NOTE | 2024-11-30 16:22 | PC.NURSE ---
Patient placed on a 96 hour hold. Unable to read patient her rights this time due to her being intubated and sedated.
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
[2024-11-30 16:36] LABS: Troponin 5 2HR 9.27 ng/L (0-10); Troponin 5 2HR Delta 0.27 ABS# (0-10)
--- NOTE | 2024-11-30 16:36 | PC.NURSE ---
Admitted to ICU 12 from ED via stretcher. Transferred to bed, on deputy sheriff, bagging with 100% O2 via OETT, fentanyl and versed infusing.
[2024-11-30 16:50] LABS: Procalcitonin 0.02 ng/mL (0-0.5)
[2024-11-30 16:59] LABS: Chol HDL Ratio 2.17 mg/dL (0.0-4.40); Cholesterol 204 mg/dL (0-200); HDL Cholesterol 94 mg/dL (60-100); LDL Cholesterol Calculated 94 mg/dL (50-129); Triglycerides 80 mg/dL (0-150)
[2024-11-30 17:05] LABS: Glucose Point of Care 314 mg/dL (70-110)
[2024-11-30] MEDS: sodium chloride 0.9% 1,000 ML 100 ML IV (17:31)
[2024-11-30] MEDS: pantoprazole 40 mg SDV IVP (17:31)
[2024-11-30 17:33] LABS: Estmated Average Glucose 180; Hemoglobin A1C 7.9 % (4.0-6.0)
[2024-11-30] MEDS: insulin lispro 100 unit/1 mL SUBCUT (17:39)
--- NOTE | 2024-11-30 17:43 | PC.NURSE ---
Addendum entered by Suzanna Giron RN 11/30/24 17:44: Witnessed waste of Fentanyl. Original Note: wasted versed drip per emar. witnessed per timur nayak.
[2024-11-30 17:55] LABS: Thyroid Stimulating Hormone 3.89 uIU/mL (0.27-4.20)
--- NOTE | 2024-11-30 19:03 | PC.NURSE ---
Poison control Mary Lou called to check on patient status. Recommend that EKG and labs (K & Mg) be rechecked.
[2024-11-30 20:17] LABS: Troponin 5 6HR 9.54 ng/L (0-10); Troponin 5 6HR Delta 0.54 ng/L (0-12)
[2024-11-30 20:39] LABS: Blood Urea Nitrogen 16 mg/dL (8-23); Calcium 8.8 mg/dL (8.5-10.5); Carbon Dioxide 19 mmol/L (22-29); Chloride 96 mmol/L (98-107); Creatinine Clr Calc Pharmacy 45.0185; Glucose 240 mg/dL (65-115); Osmolality Calculated 285 mOsm/kg (285-295); Sodium 133 mmol/L (136-145)
[2024-11-30 20:53] LABS: Anion Gap 21.8 (5-19); Potassium 3.8 mmol/L (3.5-5.1)
[2024-11-30 21:21] LABS: Glucose Point of Care 202 mg/dL (70-110)
[2024-12-01] VITALS (64 sets, daily range): BP systolic 83–181; BP diastolic 54–93; PULSE 63–82; RESP 6–16; TEMP 36.7–37.1; O2SAT 93–100
[2024-12-01] MEDS: fentaNYL 1,000 MCG/100 ML BAG 12.5 MCG IV (01:25)
[2024-12-01] MEDS: sodium chloride 0.9% 1,000 ML 100 ML IV (02:58)
[2024-12-01 03:47] LABS: ABG PCO2 40.2 mmHg (35-45); ABG PH Result 7.34 (7.35-7.45); Arterial Blood Gas Hematocrit 46.9 % (37-47); Base Excess ABG -4.1 mmol/L (-2.0-2.0); Blood Gas Allen Test Pos; Blood Gas Operator Identificat SAM; Blood Gas Sample Site Brachial, right; Blood Gas Sample Type Arterial; HCO3 ABG 21.5 mmol/L (22-26)
[2024-12-01 03:48] LABS: Oxygen Device VENT; PO2 FiO2 Ratio Arterial Blood 356
[2024-12-01] MEDS: enoxaparin 40 mg/0.4 mL Syringe SUBCUT (05:20)
[2024-12-01] MEDS: piperacillin-tazobactam 3.375 GM in sodium chloride 0.9% (plus) 50 ML IV ×3 (06:15→22:00)
[2024-12-01] MEDS: fentaNYL 1,000 MCG/100 ML BAG 20 MCG IV (06:24)
[2024-12-01 06:59] LABS: Basophils # 0.1 10^3/uL (0.0-0.1); Basophils % 0.3 %; Hematocrit 45.3 % (36-47); Lymphocytes # 0.7 10^3/uL (0.8-4.8); Lymphocytes % 4.2 %; Mean Corpuscular HGB Conc 33.1 g/dL (30-55); Mean Corpuscular Hemoglobin 30.7 pg (27-33); Mean Corpuscular Volume 92.6 fl (85-98); Mean Platelet Volume 9.8 fL (7.4-10.4); Monocytes # 0.8 10^3/uL (0.2-0.9); Monocytes % 4.9 %; Neutrophils # 14.71 10^3/uL (1.8-7.7); Neutrophils % 90.2 %; Nucleated Red Blood Cells % 0 %; Platelet Count 261 10^3/cmm (157-399); Red Blood Count 4.89 10^6/uL (3.85-5.65); Red Cell Distribution Width 13.1 % (12.1-15.1); White Blood Count 16.31 10^3/uL (3.29-11.43)
[2024-12-01 07:04] LABS: Alanine Aminotransferase 18 U/L (0-33); Albumin Level 3.7 g/dL (3.5-5.2); Alkaline Phosphatase 69 U/L (35-105); Anion Gap 18.3 (5-19); Aspartate Amino Transferase 22 U/L (0-32); Blood Urea Nitrogen 17 mg/dL (8-23); Calcium 8.2 mg/dL (8.5-10.5); Carbon Dioxide 21 mmol/L (22-29); Chloride 101 mmol/L (98-107); Globulin 2.8 g/dL (1.3-4.6); Glucose 134 mg/dL (65-115); Osmolality Calculated 286 mOsm/kg (285-295); Phosphorus 4.2 mg/dL (2.5-4.5); Potassium 4.3 mmol/L (3.5-5.1); Sodium 136 mmol/L (136-145); Total Bilirubin 0.9 mg/dL (0.15-1.2); Total Protein 6.5 g/dL (6.6-8.7)
[2024-12-01 07:06] LABS: C Reactive Protein 60.3 mg/L (0.0-4.9)
[2024-12-01 07:16] LABS: NT Pro B Type Natriuretic Pept 1271 pg/mL (0-450); Procalcitonin 4.55 ng/mL (0-0.5)
[2024-12-01 07:36] LABS: Creatinine Clr Calc Pharmacy 34.5903
[2024-12-01 07:41] LABS: Glucose Point of Care 116 mg/dL (70-110)
[2024-12-01] MEDS: atorvastatin 40 mg Tablet PO (08:42)
--- NOTE | 2024-12-01 08:51 | USR_ITS ---
PROCEDURE INFORMATION: Exam: US Retroperitoneal, Complete, Kidneys and Bladder Exam date and time: 12/01/2024 12:33 PM Age: 79 years old Clinical indication: Condition or disease; Kidney or ureter condition and other: Jacob; Patient on vent TECHNIQUE: Imaging protocol: Real-time ultrasound of the retroperitoneum with image documentation. Complete exam focused on the bilateral kidneys and urinary bladder. COMPARISON: No relevant prior studies available. FINDINGS: Right kidney: The right kidney measures 10.5 x 3.4 x 3.9 cm. Cortical thickness is 7 mm. No mass, definite calculus, or hydronephrosis. Left kidney: There was suboptimal visualization of the left kidney with a lower pole obscured. No identifiable mass or hydronephrosis. No cortical thinning. Urinary bladder: The bladder was decompressed by a French catheter.. US/US renal BI* [id number] IMPRESSION: No acute findings. Thin right renal cortex. Partially obscured left kidney. Decompressed bladder.
[2024-12-01] MEDS: FUROsemide 10 mg/mL SDV 4mL 40 MG IVP (09:50)
--- NOTE | 2024-12-01 11:05 | PC.NURSE ---
Sedation off at present time. Placed on CPAP on vent per RT. multiple periods of apnea noted with constant stimulation required to keep patient awake. Placed back on rate on ventilator.
[2024-12-01 12:09] LABS: Glucose Point of Care 108 mg/dL (70-110)
--- NOTE | 2024-12-01 13:20 | PC.NURSE ---
Patient placed on CPAP for 2nd spontaneous breathing trial per RT. Continues to have long periods of apnea and extreme difficultly remaining awake. Placed back on rate per ventilator. Notified Dr. Antunez, stated to continue to watch her off of sedation.
--- NOTE | 2024-12-01 13:45 | PC.NURSE ---
Poison control called to check on patient, update given.
--- NOTE | 2024-12-01 15:10 | PC.NURSE ---
Notified Dr. Antunez that patient still remains very drowsy and respiratory rate 6-9 on CPAP mode on vent. Order given to maintain patient on vent tonight, start precedex if needed for agitation and may run fentanyl at 25mcg/hr for agitation. Do not increase dose of fentanyl without calling MD.
--- NOTE | 2024-12-01 15:38 | P.PN_ITS ---
Subjective 2 Subjective: Patient was seen this morning, she is currently intubated, on minimal sedation, 25 of fentanyl, she does awaken her eyes to her name, pupils equal round reactive to light she does localize pain, does have a gag reflex, Babinski's upward going bilaterally, afebrile overnight, normotensive, 28% FiO2 Vitals/I&O/Wt Last Vital Signs Temp 98.0 F 12/01/24 12:00 Pulse 77 12/01/24 14:00 Resp 12 12/01/24 13:09 BP 166/80 12/01/24 12:00 Pulse Ox 97 12/01/24 13:09 O2 Del Method Mechanical Ventilation 12/01/24 12:00 FiO2 30 12/01/24 13:09 12/01/24 12/01/24 12/01/24 06:59 14:59 22:59 Intake Total 1157.083 / 1236.937 766.625 / 766.625 Output Total 600 / 600 Balance 557.083 / 636.937 766.625 / 766.625 Weight last 48 hrs Weight 61 kg Weight 57.5 kg Weight 63.503 kg Physical Exam 2 Const: COMMON NORMALS: no acute distress Eye: COMMON NORMALS: Equal, round and reactive pupils present PUPIL: Yes Equal, round and reactive pupils present Neck/C-Spine: COMMON NORMALS: no lymphadenopathy Resp: COMMON NORMALS: normal respiratory effort, No retractions and No use of accessory muscles AUSCULTATION: crackles and wheezes Cardio: COMMON NORMALS: regular rate, regular rhythm, S1 normal heart sound present and S2 normal heart sound present RATE: regular rate RHYTHM: r egular rhythm HEART SOUNDS: S1 normal heart sound present and S2 normal heart sound present GI: COMMON NORMALS: Normal to inspection, nondistended, normoactive bowel sounds present and non-tender Extremity: COMMON NORMALS: no pedal edema Urinary Catheter Management: French: Cath Placed During This Visit: yes Reason for Continuing Indwelling Catheter: Accurate Measurement of Urinary Output in Critically Ill Patients Urinary Catheter Date of Insertion: 11/30/24 Urinary Catheter Time of Insertion: 14:15 Sepsis: Is patient septic: No Focused sepsis exam performed: Yes Focused sepsis exam: DP PT pulses palpable, cap refill less than 2 seconds, no mottling Date exam was performed: 12/01/24 Time exam was performed: 09:00 Data 12/01/24 06:39 12/01/24 06:39 Micro: Microbiology 11/30/24 13:55 Urine Culture - Preliminary Urine,Clean Catch 11/30/24 14:54 Blood Culture - Preliminary Blood NEGATIVE TO DATE 11/30/24 14:48 Blood Culture - Preliminary Blood NEGATIVE TO DATE 11/30/24 14:00 Gram Stain - Final Sputum - Endotracheal Tube Aspirate A&P Assessment and plan (1) Suicidal behavior with attempted self-injury: (2) Intentional overdose: (3) Suicide attempt by drug overdose: (4) Acute hypoxic respiratory failure: Plan Suicide attempt, intentional drug overdose -Found to have open pill bottles of Benadryl sleep medication, ibuprofen at bedside - is not sure how many pills she took -She also is prescribed tramadol, blood pressure medications, diabetic medications she is not sure if she has taken those medications in addition -Benadryl, will monitor QTc closely, telemetry monitoring -Ibuprofen overdose, monitor hemoglobin, monitor for GI bleed Acute encephalopathy -Intubated for airway protection GCS of 6 -Concerns for suicide attempt, intentional drug overdose -Discussed with family other possibilities certainly exist, such as acute CVA although CT head is within normal limits -UA negative for UTI -Does have pneumonia -Neurochecks, monitor mentation closely off sedation Acute hypoxic respiratory failure -Secondary to suicide attempt, intentional drug overdose -Concerns for pneumonia Plan -Currently intubated, sedated, mechanical ventilation -Continue fentanyl for sedation -Precedex -Continue propofol if needed for agitation -Minimize tidal volume, minimize FiO2 -Continue IV Zosyn -DuoNeb -Monitor respiratory status closely -Daily spontaneous breathing trials -Full code -Lovenox for DVT prophylaxis -Protonix for GI prophylaxis Type 2 diabetes mellitus, low-dose sliding scale Plan for today spontaneous breathing trial, monitor mentation, continue IV antibiotics PDMP PDMP Reviewed: Last Reviewed 11/30/24 16:39 by Franc Antunez MD Attestations 2 Medical Necessity Statement*: Patient requires hospitalization for suicide attempt, acute encephalopathy, acute hypoxic respiratory failure, Coding Level of Care Code Critical Care >/= 30 minutes Critical care time (in minutes): 45 The high probability of a clinically significant, sudden or life threatening deterioration, as referenced in this documentation, required my full and direct attention, intervention and personal management. The critical care time shown is in addition to time spent performing any reported separately billable procedures and includes the following: [x] Data and vital sign review and interpretation [x ] Patient assessment, examination and intervention [x] Medication orders and management [x] Patient/Family updates as able [x] Care Coordination and Documentation. Diagnoses Suicidal behavior with attempted self-injury T14.91XA Intentional overdose T50.902A Suicide attempt by drug overdose T50.902A Acute hypoxic respiratory failure J96.01
[2024-12-01] MEDS: pantoprazole 40 mg SDV IVP (16:30)
[2024-12-01] MEDS: dexmedeTOMIDine 0.9 % NaCL 400 MCG/100 ML PREMIX IV (16:37)
[2024-12-01 17:28] LABS: Glucose Point of Care 123 mg/dL (70-110)
[2024-12-01 21:06] LABS: Glucose Point of Care 151 mg/dL (70-110)
[2024-12-02] VITALS (45 sets, daily range): BP systolic 90–164; BP diastolic 44–77; PULSE 63–141; RESP 7–22; TEMP 36.3–37.7; O2SAT 94–100
[2024-12-02] MEDS: chlorhexidine gluconate 4% Btl 118 mL 1 APPLIC TOPICAL (00:23)
[2024-12-02 04:01] LABS: ABG PCO2 35.2 mmHg (35-45); ABG PH Result 7.31 (7.35-7.45); Base Excess ABG -7.5 mmol/L (-2.0-2.0); Blood Gas Sample Site Brachial, right; Blood Gas Sample Type Arterial; HCO3 ABG 17.8 mmol/L (22-26); Oxygen Device VENT; PO2 FiO2 Ratio Arterial Blood 373
[2024-12-02 04:22] LABS: Basophils # 0.1 10^3/uL (0.0-0.1); Basophils % 0.3 %; Eosinophils % 0.1 %; Hematocrit 44.2 % (36-47); Lymphocytes # 0.9 10^3/uL (0.8-4.8); Lymphocytes % 6.3 %; Mean Corpuscular HGB Conc 32.4 g/dL (30-55); Mean Corpuscular Hemoglobin 30.6 pg (27-33); Mean Corpuscular Volume 94.6 fl (85-98); Mean Platelet Volume 10.4 fL (7.4-10.4); Monocytes # 0.9 10^3/uL (0.2-0.9); Monocytes % 6.5 %; Neutrophils # 12.55 10^3/uL (1.8-7.7); Neutrophils % 86.3 %; Nucleated Red Blood Cells % 0 %; Platelet Count 248 10^3/cmm (157-399); Red Blood Count 4.67 10^6/uL (3.85-5.65); Red Cell Distribution Width 13.4 % (12.1-15.1); White Blood Count 14.55 10^3/uL (3.29-11.43)
[2024-12-02 04:49] LABS: C Reactive Protein 120.4 mg/L (0.0-4.9)
[2024-12-02 04:54] LABS: NT Pro B Type Natriuretic Pept 486 pg/mL (0-450); Procalcitonin 5.76 ng/mL (0-0.5)
[2024-12-02 05:05] LABS: Alanine Aminotransferase 14 U/L (0-33); Albumin Level 3.5 g/dL (3.5-5.2); Alkaline Phosphatase 66 U/L (35-105); Anion Gap 25.1 (5-19); Aspartate Amino Transferase 15 U/L (0-32); Blood Urea Nitrogen 32 mg/dL (8-23); Calcium 8.5 mg/dL (8.5-10.5); Carbon Dioxide 17 mmol/L (22-29); Chloride 100 mmol/L (98-107); Creatinine Clr Calc Pharmacy 21.8465; Globulin 2.9 g/dL (1.3-4.6); Glucose 199 mg/dL (65-115); Magnesium 2.3 mg/dL (1.7-2.3); Osmolality Calculated 298 mOsm/kg (285-295); Potassium 4.1 mmol/L (3.5-5.1); Sodium 138 mmol/L (136-145); Total Bilirubin 0.8 mg/dL (0.15-1.2); Total Protein 6.4 g/dL (6.6-8.7)
[2024-12-02] MEDS: piperacillin-tazobactam 3.375 GM in sodium chloride 0.9% (plus) 50 ML IV ×2 (06:17→14:46)
[2024-12-02] MEDS: enoxaparin 40 mg/0.4 mL Syringe SUBCUT (06:17)
[2024-12-02 08:11] LABS: Glucose Point of Care 201 mg/dL (70-110)
--- NOTE | 2024-12-02 08:46 | XRR_ITS ---
PROCEDURE INFORMATION: Exam: XR Chest Exam date and time: 12/02/2024 9:21 AM Age: 79 years old Clinical indication: Shortness of breath; Additional info: SOB TECHNIQUE: Imaging protocol: Radiologic exam of the chest. Views: 1 view. COMPARISON: CR XR chest 1V portable [id number] 11/30/2024 1:46 PM FINDINGS: Tubes, catheters and devices: The endotracheal tube has its tip well-positioned within the trachea. The nasogastric tube has its tip within the stomach. Lungs: Unremarkable. No consolidation or mass. Pleural spaces: Unremarkable. No pleural effusion. No pneumothorax. Heart/Mediastinum: Unremarkable. No cardiomegaly. Bones/joints: Unremarkable. XR/XR chest 1V portable [id number] IMPRESSION: No acute findings.
[2024-12-02] MEDS: insulin lispro 100 unit/1 mL SUBCUT ×3 (08:51→17:44)
[2024-12-02] MEDS: atorvastatin 40 mg Tablet PO (08:51)
[2024-12-02] MEDS: sodium chloride 0.9% 1,000 ML 50 ML IV (08:58)
--- NOTE | 2024-12-02 09:02 | PC.NURSE ---
Addendum entered by SUMEET Kaplan 12/02/24 09:08: Witnessed waste of fentanyl. Original Note: Wasted fentanyl, see nov. witnessed per SILVIA Valentin
--- NOTE | 2024-12-02 09:50 | PC.NURSE ---
Placed on CPAP per vent per RT.
[2024-12-02 11:01] LABS: Glucose Point of Care 197 mg/dL (70-110)
--- NOTE | 2024-12-02 13:10 | PM.PN ---
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, she does awaken, she does follow commands, pupils equal round reactive to light, does withdraw from pain, does localize pain, can follow commands of squeezing my fingers, but does become drowsy at times, continue spontaneous breathing trial this morning, will start on IV fluids -Reexamined early this afternoon, she is alert, she can follow commands, she is able to nod for me, able to move her upper and bilateral lower extremities, on 28% FiO2, undergoing spontaneous breathing trial, no tachycardia, no tachypnea, episodes, -Plan on extubation, -Sister is at bedside Vitals/I&O/Wt Last Vital Signs Temp 97.4 F L 12/02/24 08:00 Pulse 79 12/02/24 12:30 Resp 14 12/02/24 12:28 BP 132/60 12/02/24 12:30 Pulse Ox 99 12/02/24 12:30 O2 Del Method Mechanical Ventilation 12/02/24 12:00 FiO2 30 12/02/24 12:28 12/01/24 12/02/24 12/02/24 22:59 06:59 14:59 Intake Total 56.608 / 823.275 132.661 / 955.936 110.006 / 110.006 Output Total 1525 / 1525 500 / 2025 Balance -1468.392 / -701.725 -367.339 / -1069.064 110.006 / 110.006 Weight last 48 hrs Weight 59 kg Weight 61 kg Weight 57.5 kg Weight 63.503 kg Physical Exam Const: COMMON NORMALS: no acute distress ORIENTATION/CONSCIOUSNESS: Yes awake and Yes oriented to person Resp: COMMON NORMALS: normal respiratory effort, No retractions, No use of accessory muscles and clear to auscultation bilaterally AUSCULTATION: clear to auscultation bilaterally Cardio: COMMON NORMALS: regular rate, regular rhythm, S1 normal heart sound present and S2 normal heart sound present RATE: regular rate RHYTHM: regular rhythm HEART SOUNDS: S1 normal heart sound present and S2 normal heart sound present GI: COMMON NORMALS: Normal to inspection, nondistended, normoactive bowel sounds present and non-tender Extremity: COMMON NORMALS: no pedal edema Neuro: SENSORIUM/ORIENTATION: Yes oriented to person Psych: COMMON NORMALS: mental status grossly normal Urinary Catheter Management: French: Cath Placed During This Visit: yes Reason for Continuing Indwelling Catheter: Accurate Measurement of Urinary Output in Critically Ill Patients Urinary Catheter Date of Insertion: 11/30/24 Urinary Catheter Time of Insertion: 14:15 Data 12/02/24 04:01 12/02/24 04:01 Micro: Microbiology 11/30/24 14:00 Gram Stain - Final Sputum - Endotracheal Tube Aspirate Sputum Culture - Final 11/30/24 13:55 Urine Culture - Preliminary Urine,Clean Catch 11/30/24 14:54 Blood Culture - Preliminary Blood NEGATIVE TO DATE 11/30/24 14:48 Blood Culture - Preliminary Blood NEGATIVE TO DATE A&P Assessment and plan (1) Suicidal behavior with attempted self-injury: (2) Intentional overdose: (3) Suicide attempt by drug overdose: (4) Acute hypoxic respiratory failure: Plan Suicide attempt, intentional drug overdose -Has a 96-hour hold in place -Found to have open pill bottles of Benadryl sleep medication, ibuprofen at bedside - is not sure how many pills she took -She also is prescribed tramadol, blood pressure medications, diabetic medications she is not sure if she has taken those medications in addition -Benadryl, will monitor QTc closely, telemetry monitoring -Ibuprofen overdose, monitor hemoglobin, monitor for GI bleed Acute encephalopathy -Intubated for airway protection GCS of 6 -Concerns for suicide attempt, intentional drug overdose -Discussed with family other possibilities certainly exist, such as acute CVA although CT head is within normal limits -UA negative for UTI -Does have pneumonia -Neurochecks, monitor mentation closely off sedation Acute hypoxic respiratory failure -Secondary to suicide attempt, intentional drug overdose -Concerns for pneumonia Plan -Currently intubated, sedated, mechanical ventilation -Continue fentanyl for sedation -Precedex -Continue propofol if needed for agitation -Minimize tidal volume, minimize FiO2 -Continue IV Zosyn -DuoNeb -Monitor respiratory status closely -Daily spontaneous breathing trials -Full code -Lovenox for DVT prophylaxis -Protonix for GI prophylaxis Type 2 diabetes mellitus, low-dose sliding scale Increased anion gap metabolic acidosis -Check serum ketones -Likely from dehydration, diuresis, start IV fluids -Recheck BMP at noon Plan for today spontaneous breathing trial, hopefully will extubate this afternoon, continue IV antibiotics, has evidence of metabolic acidosis, with COREY creatinine 1.9, increased anion gap, likely secondary to dehydration, will give her IV fluids, repeat BMP this evening, check serum ketones if she has DKA PDMP PDMP Reviewed: Last Reviewed 11/30/24 16:39 by Franc Antunez MD Attestations Medical Necessity Statement*: Patient requires hospitalization for acute hypoxic respiratory failure, increased anion gap metabolic acidosis Coding Level of Care Code Critical Care >/= 30 minutes Critical care time (in minutes): 50 The high probability of a clinically significant, sudden or life threatening deterioration, as referenced in this documentation, required my full and direct attention, intervention and personal management. The critical care time shown is in addition to time spent performing any reported separately billable procedures and includes the following: [x] Data and vital sign review and interpretation [x] Patient assessment, examination and intervention [x] Medication orders and management [x] Patient/Family updates as able [x] Care Coordination and Documentation. Diagnoses Suicidal behavior with attempted self-injury T14.91XA Intentional overdose T50.902A Suicide attempt by drug overdose T50.902A Acute hypoxic respiratory failure J96.01
--- NOTE | 2024-12-02 13:14 | PC.NURSE ---
1300 -- Extubated per RT, as ordered per Dr. Antunez. Placed on O2 at 2L NC. Tolerated well, NG tube removed. 1309 -- [facility] called for update on patient status.
[2024-12-02 14:11] LABS: Ketone (Acetest) Serum Negative (Negative)
[2024-12-02 14:19] LABS: Anion Gap 23.6 (5-19); Blood Urea Nitrogen 42 mg/dL (8-23); Calcium 8.6 mg/dL (8.5-10.5); Carbon Dioxide 18 mmol/L (22-29); Chloride 99 mmol/L (98-107); Glucose 184 mg/dL (65-115); Osmolality Calculated 299 mOsm/kg (285-295); Potassium 3.6 mmol/L (3.5-5.1); Sodium 137 mmol/L (136-145)
[2024-12-02] MEDS: sodium bicarbonate 50 MEQ in sodium chloride 0.45% 1,000 ML 100 MEQ IV (15:30)
[2024-12-02] MEDS: lanolin oint 7 gm 1 APPLIC TOPICAL (16:07)
[2024-12-02] MEDS: pantoprazole 40 mg SDV IVP (16:07)
--- NOTE | 2024-12-02 16:31 | W.PM.PSYCONS ---
Providers/Reason for Consult Consulting Physican/Specialty*: Braxton Mason MD. Psychiatry. Reason for Consult*: Evaluation for safety and need for further psychiatric care acutely. Attending Physician: Franc Antunez MD Primary Care Provider: Harpreet Choudhury, Psych Consult HPI History of Present Illness Lety Singh is a 79 year old female who presented to the emergency department with the following report: Chief Complaint: Overdose Stated Complaint: OVERDOSE Time Seen by Provider: 11/30/24 13:37 History of Present Illness: 79-year-old female brought in by EMS intubated on arrival. Patient was found unresponsive by the family was a bottle of diphenhydramine Hydramine and a bottle of diphenhydramine ibuprofen combination. She took an unknown number of pills. Her family last had contact with her in her normal state around 1 AM this morning. She was found around 1 PM this afternoon. EMS reports she initially had a GCS of 6 became more unresponsive patient was intubated with RSI with rocuronium and etomidate. She was then given Versed and fentanyl and route. She is sedated unresponsive when she first arrives Limited exam. She was admitted to the ICU for definitive treatment of her altered mental status. She is known to [facility] through inpatient psychiatric services through consult. No outpatient services through [facility] noted. However she did have a previous suicide attempt that required significant intervention in the spring of last year that had similar circumstances including challenges related to her son. She told a somewhat complicated story about her son being asked not to be in the home for period of time but then he did return and then maybe there was a point where she asked him to leave again and he more or less forced himself into the home. She talked about the possibility of there being an ex partake related to him being there but then she overturned it but she is now reporting she may be willing to do this again but there are great concerns about her being able to hold to this given him often using force and aggression in addition to challenging her about him not having anywhere else to go to make his way into living there again. She acknowledges that she did over a year ago that she did do this as an intentional overdose and she is no longer taking antidepressants reporting that she had a period of time that she was feeling much better and then for like she needed them. We discussed the risks, benefits and alternatives of resuming an antidepressant and she understood and agreed to proceed as is documented in this note agreeing to consider that option. She reports that she has a grandchildren that are the children of her son that are desirous to help her keep their dad out but it is unclear how this will work. An excerpt of her 2023 psychiatric consult is included below for context and history and the fact that there have been no substantive changes. Per her 12/20/2023 [facility] inpatient psychiatric consult: History of Present Illness 78-year-old white female who was admitted to the intensive care unit after she had presented to the emergency department found by EMS unresponsive in her home. The patient was interviewed in the ICU. The patient had reported that she had overdosed on several pills that are used [id number] for sleeping along with several pills of Tylenol. She had reported that when she woke up after overdosing here in the hospital she was upset that she was still alive. Patient reports that she has been feeling depressed for several months. She reports that her had approximately 6 months ago and reports that it has been a struggle to manage her life since her of 56 years . She reports diminished energy. She reports having greater problems with concentration. She reports that she has been feeling depressed quite frequently over the past few days and acknowledges that she had been thinking about overdosing for several days. She reports that she has been struggling with caring for her son who has significant mental illness including bipolar disorder and significant problems with addiction to alcohol and methamphetamine. She had endorsed some increased feelings of hopelessness. She states that she has not spoken to anyone about her depression and reports that she is not finding pleasure with completing any activities and has low motivation to even care for herself. The patient denied any sandie. She denied any past history of depressive episodes. She denied any history of psychosis. She denied any history of drug or alcohol use. She reports no worsening medical issues. She reports having okay occasional periods of increased pain. She reports no clear history of any social phobia, generalized anxiety disorder, or obsessive-compulsive disorder. Psychiatric history: None Drug and alcohol history: None Legal history: None Medical history: Type 2 diabetes, hypertension, history of aspiration pneumonia, history of urinary retention, hypercholesterolemia Surgical history: History of D&C Current medications: Tramadol 50 mg twice a day, metoprolol 25 mg a day, metformin 1000 mg twice a day, lisinopril, glipizide, atorvastatin, Family psychiatric history: Polysubstance abuse and biological son., Bipolar disorder I in son. Social history: The patient lives in [facility] with her biological son in a house that she owns and is lived that for 29 years. She was prior to this time for 56 years to her who in 2022. Was her first marriage. She had previously worked in [employer]. She had graduated high school and has 1 son as she lost 1 child at . Her siblings are currently . She denied any history of sexual physical or emotional abuse. She did not endorse any history of problems with learning. She did not endorse any financial stressors. She reports that she has always lived independently and has friends in her surrounding area but has lost both her parents many years ago and has a niece that she is close with. Meds Home Medications and Allergies Home Medications ?Medication ?Instructions ?Recorded ?Confirmed ?Last Taken ?Type atorvastatin 40 mg tablet 40 mg PO DAILY 12/18/23 11/30/24 Unknown History glipizide 5 mg tablet 2.5 mg PO DAILY 12/18/23 11/30/24 Unknown History lisinopril 5 mg tablet 5 mg PO DAILY 12/18/23 11/30/24 Unknown History metformin 1,000 mg tablet 1,000 mg PO BID 12/18/23 11/30/24 Unknown History metoprolol succinate 25 mg 25 mg PO QAM 12/18/23 11/30/24 Unknown History tablet,extended release 24 hr tramadol 50 mg tablet 50 mg PO BID PRN Pain 12/18/23 11/30/24 Unknown History alendronate 70 mg tablet 70 mg PO Q7D 11/30/24 11/30/24 Unknown History Allergies Allergy/AdvReac Type Severity Reaction Status Date / Time No Known Allergies Allergy Verified 03/05/22 12:14 Current Medications Current Medications Generic Name Dose Route Start Last Admin Trade Name Freq PRN Reason Stop Dose Admin Atorvastatin Calcium 40 mg 12/01/24 09:00 12/02/24 08:51 Atorvastatin 40 Mg Tablet PO 40 mg DAILY TERRY Administration Enoxaparin Sodium 30 mg 12/03/24 07:00 12/03/24 07:17 Enoxaparin 30 Mg/0.3 Ml Syringe SUBCUT 30 mg Q24H TERRY Administration Sodium Bicarbonate 50 meq/ 1,050 mls @ 100 mls/hr 12/02/24 15:30 12/03/24 02:01 Sodium Chloride IV 100 mls/hr .[id number] TERRY Administration Piperacillin Sod/Tazobactam 50 mls @ 12.5 mls/hr 12/03/24 06:00 12/03/24 05:00 Sod 3.375 gm/ Sodium Chloride IV 12.5 mls/hr Q12H TERRY Administration Insulin Human Lispro 0 unit 11/30/24 18:00 12/02/24 17:44 Insulin Lispro 100 Unit/1 Ml SUBCUT 4 unit TIDWM TERRY Administration Protocol Lanolin 1 applic 12/02/24 15:35 12/02/24 16:07 Lanolin Oint 7 Gm TOPICAL 1 applic PRN PRN Administration DRYNESS Pantoprazole Sodium 40 mg 11/30/24 16:35 12/02/24 16:07 Pantoprazole 40 Mg Sdv IVP 40 mg Q24H TERRY Administration PFSH NPU PFSH: Medical History Hypertension Diabetes mellitus Mental Status Exam MSE Comments: This is a slender white female in hospital gown with limited grooming and adequate eye contact. There was no evidence of any abnormal involuntary motor movements tics or tremors appreciated. However, there was moderate psychomotor retardation. Her mood was described as I do not know. Her affect was subdued and restricted in range and occasionally tearful. Her thought process was linear logical and goal-directed. Speech is decreased rate and volume. She minimized suicidal ideation but acknowledged seriousness of overdose and intent noted. She denied any homicidal ideation. There was no evidence of any delusional thinking. She did not appear to be responding to internal stimuli. She was alert and oriented to person place time and situation. Her attention span appeared fair. Her recent and remote memory were grossly intact. Her insight was limited. Her judgment was poor. Her impulse control appeared impaired. Vitals/I&O/Wt Last Vital Signs Temp 99.9 F H 12/02/24 16:00 Pulse 88 12/02/24 16:00 Resp 12 12/02/24 16:00 BP 141/57 12/02/24 16:00 Pulse Ox 96 12/02/24 16:00 O2 Del Method Room Air O2 Flow Rate 2 12/02/24 14:01 FiO2 30 12/02/24 12:28 Weight last 48 hrs Weight 58 kg Weight 59 kg Physical Exam Urinary Catheter Management: French: Cath Placed During This Visit: yes Reason for Continuing Indwelling Catheter: Accurate Measurement of Urinary Output in Critically Ill Patients Urinary Catheter Date of Insertion: 11/30/24 Urinary Catheter Time of Insertion: 14:15 Data NPU 12/03/24 06:04 12/03/24 17:36 Micro: Microbiology 11/30/24 13:55 Urine Culture - Final Urine,Clean Catch 11/30/24 14:00 Gram Stain - Final Sputum - Endotracheal Tube Aspirate Sputum Culture - Final Microbiology 11/30/24 13:55 Urine,Clean Catch Urine Culture - Final 11/30/24 14:00 Sputum - Endotracheal Tube Aspirate Gram Stain - Final 11/30/24 14:00 Sputum - Endotracheal Tube Aspirate Sputum Culture - Final A&P Assessment and plan (1) Major depressive disorder without psychotic features: (2) Intentional overdose: (3) Complicated bereavement: (4) Suicide attempt by drug overdose: (5) Suicidal behavior with attempted self-injury: (6) Depression: Plan This is an 79-year-old female currently in the ICU after an intentional drug overdose who is known to this public relations writer into the hospital after she had a similar episode almost a year ago in part due to similar circumstances but back then struggling with the loss of her . 1. Patient no longer taking an antidepressant but may need to resume an antidepressant at some point. 2. Need to consider involuntary hospitalization and transfer to geriatric psychiatric facility. 3. May have to consider placing patient on 96 hour hold if she is not already on 1 to insure compliance with treatment given continued concerns for lethality and continued issues of significant depression. 4. Will continue to follow. PDMP PDMP Reviewed: Not Reviewed Attestations NPU Medical Necessity Statement*: N/A. Please see primary team note for medical necessity. However, agree with evaluation for discharge to inpatient geriatric psychiatry facility. Coding Level of Care Code Acute Code for Chg Fwd Diagnoses Major depressive disorder without psychotic features F32.9 Intentional overdose T50.902A Complicated bereavement F43.21 Suicide attempt by drug overdose T50.902A Suicidal behavior with attempted self-injury T14.91XA Depression F32.A
[2024-12-02 17:23] LABS: Glucose Point of Care 211 mg/dL (70-110)
[2024-12-02 21:42] LABS: Anion Gap 18.4 (5-19); Blood Urea Nitrogen 45 mg/dL (8-23); Calcium 8.2 mg/dL (8.5-10.5); Carbon Dioxide 21 mmol/L (22-29); Chloride 102 mmol/L (98-107); Glucose 173 mg/dL (65-115); Osmolality Calculated 302 mOsm/kg (285-295); Potassium 3.4 mmol/L (3.5-5.1); Sodium 138 mmol/L (136-145)
[2024-12-03] VITALS (21 sets, daily range): BP systolic 136–206; BP diastolic 72–107; PULSE 72–128; RESP 13–20; TEMP 36.8–36.9; O2SAT 94–99
[2024-12-03] MEDS: sodium bicarbonate 50 MEQ in sodium chloride 0.45% 1,000 ML 100 MEQ IV ×2 (02:01→12:35)
[2024-12-03] MEDS: piperacillin-tazobactam 3.375 GM in sodium chloride 0.9% (plus) 50 ML IV ×2 (05:00→17:36)
[2024-12-03 05:53] LABS: Procalcitonin 2.48 ng/mL (0-0.5)
[2024-12-03 05:55] LABS: Alanine Aminotransferase 11 U/L (0-33); Albumin Level 3.3 g/dL (3.5-5.2); Alkaline Phosphatase 58 U/L (35-105); Anion Gap 16.5 (5-19); Aspartate Amino Transferase 14 U/L (0-32); Blood Urea Nitrogen 42 mg/dL (8-23); Calcium 8.3 mg/dL (8.5-10.5); Carbon Dioxide 23 mmol/L (22-29); Chloride 103 mmol/L (98-107); Creatinine Clr Calc Pharmacy 22.7454; Globulin 2.1 g/dL (1.3-4.6); Glucose 96 mg/dL (65-115); Magnesium 2.5 mg/dL (1.7-2.3); NT Pro B Type Natriuretic Pept 705 pg/mL (0-450); Osmolality Calculated 298 mOsm/kg (285-295); Phosphorus 3.1 mg/dL (2.5-4.5); Potassium 3.5 mmol/L (3.5-5.1); Sodium 139 mmol/L (136-145); Total Bilirubin 0.6 mg/dL (0.15-1.2); Total Protein 5.4 g/dL (6.6-8.7)
[2024-12-03 06:04] LABS: C Reactive Protein 127.5 mg/L (0.0-4.9)
[2024-12-03 06:20] LABS: Basophils # 0.1 10^3/uL (0.0-0.1); Basophils % 0.4 %; Eosinophils # 0.1 10^3/uL (0.0-0.8); Eosinophils % 0.5 %; Hematocrit 40.8 % (36-47); Lymphocytes # 1.2 10^3/uL (0.8-4.8); Lymphocytes % 8.8 %; Mean Corpuscular HGB Conc 33.1 g/dL (30-55); Mean Corpuscular Hemoglobin 30.3 pg (27-33); Mean Corpuscular Volume 91.7 fl (85-98); Mean Platelet Volume 10.2 fL (7.4-10.4); Monocytes # 1.1 10^3/uL (0.2-0.9); Monocytes % 8.2 %; Neutrophils # 11.03 10^3/uL (1.8-7.7); Neutrophils % 81.9 %; Nucleated Red Blood Cells % 0 %; Platelet Count 248 10^3/cmm (157-399); Red Blood Count 4.45 10^6/uL (3.85-5.65); Red Cell Distribution Width 13.5 % (12.1-15.1); White Blood Count 13.48 10^3/uL (3.29-11.43)
[2024-12-03] MEDS: enoxaparin 30 mg/0.3 mL Syringe SUBCUT (07:17)
[2024-12-03 07:41] LABS: Glucose Point of Care 80 mg/dL (70-110)
[2024-12-03] MEDS: atorvastatin 40 mg Tablet PO (08:39)
--- NOTE | 2024-12-03 09:27 | PC.NURSE ---
Dr. Antunez at bedside to talk with patient. Dr. Antunez reports to this nurse that the patient's son Jose Singh is not allowed to visit this patient. Notified security and lodging house keeper of this.
[2024-12-03 11:21] LABS: Glucose Point of Care 141 mg/dL (70-110)
[2024-12-03] MEDS: amlodipine 10 mg Tablet PO (11:55)
[2024-12-03] MEDS: insulin lispro 100 unit/1 mL SUBCUT ×2 (11:55→17:43)
--- NOTE | 2024-12-03 12:59 | PC.SOCIAL ---
IMM Update patient is currently on 96 hour hold. IMM updated and reviewed w/ patient. Copy provided and copy dated, initialed and placed in chart.
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
[2024-12-03] MEDS: pantoprazole 40 mg SDV IVP (17:36)
[2024-12-03] MEDS: metoprolol succinate ER (24 HR) 25 mg Tablet PO (17:36)
[2024-12-03 17:43] LABS: Glucose Point of Care 252 mg/dL (70-110)
[2024-12-03 18:20] LABS: Anion Gap 18.5 (5-19); Blood Urea Nitrogen 26 mg/dL (8-23); Calcium 8.4 mg/dL (8.5-10.5); Carbon Dioxide 23 mmol/L (22-29); Chloride 97 mmol/L (98-107); Creatinine Clr Calc Pharmacy 33.8819; Glucose 269 mg/dL (65-115); Osmolality Calculated 294 mOsm/kg (285-295); Phosphorus 1.7 mg/dL (2.5-4.5); Potassium 3.5 mmol/L (3.5-5.1); Sodium 135 mmol/L (136-145)
[2024-12-03 18:22] LABS: Salicylate < 0.3 mg/dL (3-10)
--- NOTE | 2024-12-03 19:23 | P.NPUPN_ITS ---
Subjective NPU 2 Subjective: Patient presented today reporting that she is doing okay. We discussed the importance of continued psychiatric care and that given her history that there does not seem to be a reasonable path to her being back home or at least out of the hospital without a psychiatric stay. This is her second significant suicide attempt in the circumstances leading to that are not likely to change anytime soon. She continues to work on establishing a life without her and continues to have significant struggles with managing her adult child who has mental health and addiction issues and is not self-sufficient and still quite dependent upon her making for a volatile situation. We discussed the risks, benefits and alternatives of restarting an antidepressant as well as engaging in inpatient psychiatric treatment and she understood and agreed to proceed as is documented in this note. Mental Status Exam 2 MSE Comments: This is a slender white female in hospital gown with limited grooming and adequate eye contact. There was no evidence of any abnormal involuntary motor movements tics or tremors appreciated. However, there was moderate psychomotor retardation. Her mood was described as I do not know. Her affect was subdued and restricted in range and occasionally tearful. Her thought process was linear logical and goal-directed. Speech is decreased rate and volume. She minimized suicidal ideation but acknowledged seriousness of overdose and intent noted. She denied any homicidal ideation. There was no evidence of any delusional thinking. She did not appear to be responding to internal stimuli. She was alert and oriented to person place time and situation. Her attention span appeared fair. Her recent and remote memory were grossly intact. Her insight was limited. Her judgment was poor. Her impulse control appeared impaired. Vitals/I&O/Wt Last Vital Signs Temp 98.5 F 12/03/24 12:00 Pulse 108 H 12/03/24 14:00 Resp 16 12/03/24 14:00 BP 155/81 12/03/24 14:00 Pulse Ox 97 12/03/24 14:00 O2 Del Method Room Air 12/03/24 14:00 O2 Flow Rate 2 12/02/24 14:01 FiO2 30 12/02/24 12:28 12/03/24 12/03/24 12/03/24 06:59 14:59 22:59 Intake Total 1290 / 2310.006 1999 / 1999 496.667 / 2496.667 Output Total 550 / 850 1200 / 1200 Balance 740 / 1460.006 800 / 800 496.667 / 1296.667 Weight last 48 hrs Weight 58 kg Weight 59 kg Physical Exam 2 Urinary Catheter Management: French: Cath Placed During This Visit: yes Reason for Continuing Indwelling Catheter: Accurate Measurement of Urinary Output in Critically Ill Patients Urinary Catheter Date of Insertion: 11/30/24 Urinary Catheter Time of Insertion: 14:15 Data NPU 12/04/24 03:40 12/04/24 03:40 Micro: Microbiology 11/30/24 13:55 Urine Culture - Final Urine,Clean Catch Microbiology 11/30/24 13:55 Urine,Clean Catch Urine Culture - Final A&P Assessment and plan (1) Major depressive disorder without psychotic features: (2) Intentional overdose: (3) Complicated bereavement: (4) Suicide attempt by drug overdose: (5) Suicidal behavior with attempted self-injury: (6) Depression: Plan This is an 79-year-old female currently in the ICU after an intentional drug overdose who is known to this senior writer into the hospital after she had a similar episode almost a year ago in part due to similar circumstances but back then struggling with the loss of her . 1. Patient no longer taking an antidepressant but may need to resume an antidepressant at some point. Would restart Lexapro 10 mg p.o. daily 2. Recommend inpatient psychiatric hospitalization and transfer to geriatric psychiatric facility. 3. Patient on 96 hour hold and may have to continue involuntary treatment given continued concerns for lethality and continued issues of significant depression. 4. Will continue to follow. PDMP PDMP Reviewed: Not Reviewed Involuntary Hold Information 2 Hold Status: Date/Time Hold Expires: 12/06/24 @ 1545 Attestations NPU 2 Medical Necessity Statement*: N/A. Please see primary team note for medical necessity. However, agree with evaluation for discharge to inpatient geriatric psychiatry facility. Coding Level of Care Code Acute Code for Chg Fwd Diagnoses Major depressive disorder without psychotic features F32.9 Intentional overdose T50.902A Complicated bereavement F43.21 Suicide attempt by drug overdose T50.902A Suicidal behavior with attempted self-injury T14.91XA Depression F32.A
[2024-12-03 21:30] LABS: Glucose Point of Care 302 mg/dL (70-110)
[2024-12-04] VITALS (18 sets, daily range): BP systolic 146–171; BP diastolic 57–97; PULSE 77–101; RESP 14–25; TEMP 37.6; O2SAT 93–96
[2024-12-04 04:26] LABS: Basophils % 0.5 %; Eosinophils % 0.5 %; Hematocrit 37.3 % (36-47); Lymphocytes # 0.9 10^3/uL (0.8-4.8); Lymphocytes % 10.1 %; Mean Corpuscular Hemoglobin 30.8 pg (27-33); Mean Corpuscular Volume 90.3 fl (85-98); Mean Platelet Volume 10.5 fL (7.4-10.4); Monocytes % 11.3 %; Neutrophils % 77.4 %; Nucleated Red Blood Cells % 0 %; Platelet Count 235 10^3/cmm (157-399); Red Blood Count 4.13 10^6/uL (3.85-5.65); Red Cell Distribution Width 13.2 % (12.1-15.1); White Blood Count 8.78 10^3/uL (3.29-11.43)
[2024-12-04 04:57] LABS: Alanine Aminotransferase 10 U/L (0-33); Albumin Level 3.1 g/dL (3.5-5.2); Alkaline Phosphatase 63 U/L (35-105); Anion Gap 13.4 (5-19); Aspartate Amino Transferase 12 U/L (0-32); Blood Urea Nitrogen 21 mg/dL (8-23); Calcium 7.9 mg/dL (8.5-10.5); Carbon Dioxide 27 mmol/L (22-29); Chloride 101 mmol/L (98-107); Creatinine Clr Calc Pharmacy 40.6583; Globulin 2.7 g/dL (1.3-4.6); Glucose 278 mg/dL (65-115); Magnesium 1.8 mg/dL (1.7-2.3); Osmolality Calculated 299 mOsm/kg (285-295); Phosphorus 1.6 mg/dL (2.5-4.5); Potassium 3.4 mmol/L (3.5-5.1); Sodium 138 mmol/L (136-145); Total Bilirubin 0.7 mg/dL (0.15-1.2); Total Protein 5.8 g/dL (6.6-8.7)
[2024-12-04] MEDS: sodium bicarbonate 50 MEQ in sodium chloride 0.45% 1,000 ML IV (05:40)
[2024-12-04] MEDS: piperacillin-tazobactam 3.375 GM in sodium chloride 0.9% (plus) 50 ML IV (05:59)
[2024-12-04] MEDS: enoxaparin 30 mg/0.3 mL Syringe SUBCUT (06:04)
[2024-12-04] MEDS: insulin lispro 100 unit/1 mL SUBCUT ×2 (09:00→11:33)
[2024-12-04] MEDS: potassium chloride ER 20 mEq Tablet 40 MEQ PO (09:00)
[2024-12-04] MEDS: amlodipine 10 mg Tablet PO (09:01)
[2024-12-04] MEDS: metoprolol succinate ER (24 HR) 25 mg Tablet PO (09:01)
[2024-12-04] MEDS: atorvastatin 40 mg Tablet PO (09:01)
[2024-12-04 11:42] LABS: Glucose Point of Care 314 mg/dL (70-110)
[2024-12-04 11:42] LABS: Glucose Point of Care 235 mg/dL (70-110)
--- NOTE | 2024-12-04 14:49 | P.PN_ITS ---
Subjective 2 Subjective: Patient was seen this morning, denies any chest pain, palpitations, shortness of breath, no abdominal pain, no lightheadedness, no dizziness, she is alert oriented x 3, following all commands, denies any suicidal ideation, no homicidal ideation, she is still quite emotional about her home situation, but her son Vitals/I&O/Wt Last Vital Signs Temp 99.6 F 12/04/24 10:00 Pulse 89 12/04/24 12:00 Resp 14 12/04/24 12:00 BP 151/69 12/04/24 12:00 Pulse Ox 96 12/04/24 12:00 O2 Del Method Room Air 12/04/24 12:00 O2 Flow Rate 2 12/02/24 14:01 FiO2 30 12/02/24 12:28 12/03/24 12/04/24 12/04/24 22:59 06:59 14:59 Intake Total 1216.667 / 3216.667 843.333 / 4060.000 290 / 290 Output Total 2150 / 3350 1000 / 4350 250 / 250 Balance -933.333 / -133.333 -156.667 / -290.000 40 / 40 Weight last 48 hrs Weight 58.513 kg Weight 58 kg Physical Exam 2 Const: COMMON NORMALS: no acute distress and patient oriented x3 Resp: COMMON NORMALS: normal respiratory effort, No retractions, No use of accessory muscles and clear to auscultation bilaterally AUSCULTATION: clear to auscultation bilaterally Cardio: COMMON NORMALS: regular rate, regular rhythm, S1 normal heart sound present and S2 normal heart sound present RATE: regular rate RHYTHM: r egular rhythm HEART SOUNDS: S1 normal heart sound present and S2 normal heart sound present GI: COMMON NORMALS: Normal to inspection, nondistended, normoactive bowel sounds present and non-tender Extremity: COMMON NORMALS: no pedal edema Neuro: COMMON NORMALS: patient oriented x3 Psych: COMMON NORMALS: mental status grossly normal Urinary Catheter Management: French: Cath Placed During This Visit: yes, but has since been removed by the nurse Reason for Continuing Indwelling Catheter: Decision to DC Catheter Urinary Catheter Date of Insertion: 11/30/24 Urinary Catheter Time of Insertion: 14:15 Date Urinary Catheter Removed: 12/04/24 Time Urinary Catheter Discontinued: 09:59 Data 12/04/24 03:40 12/04/24 03:40 A&P Assessment and plan (1) Major depressive disorder without psychotic features: (2) Intentional overdose: (3) Complicated bereavement: (4) Suicide attempt by drug overdose: (5) Suicidal behavior with attempted self-injury: (6) Depression: (7) Acute hypoxic respiratory failure: Plan Suicide attempt, intentional drug overdose, resolved -Has a 96-hour hold in place -Found to have open pill bottles of Benadryl sleep medication, ibuprofen at bedside -She also is prescribed tramadol, blood pressure medications, diabetic medications, she denies taking these medications as overdose -Benadryl, will monitor QTc closely, telemetry monitoring -Ibuprofen overdose, monitor hemoglobin, monitor electrolytes as below -Currently denies any suicidal ideation, no homicidal ideation, does report persistent depression -Start Lexapro 10 mg daily -Will require placement to geriatric psychiatric facility -Continue suicide precautions, one-to-one sitter Acute encephalopathy -Resolved Acute hypoxic respiratory failure -Secondary to suicide attempt, intentional drug overdose -Concerns for pneumonia Plan -Extubated to nasal cannula -Switch to p.o. Augmentin -DuoNeb -Monitor respiratory status closely -Daily spontaneous breathing trials -Full code -Lovenox for DVT prophylaxis -Protonix for GI prophylaxis -Remove French catheter Type 2 diabetes mellitus, low-dose sliding scale Increased anion gap metabolic acidosis, with acute kidney injury, resolved -Check serum ketones negative -Likely from dehydration, diuresis, continue sodium bicarb drip -Could be from ibuprofen overdose, check salicylate levels continue bicarb drip Plan for today monitor stop IV fluids, remove French catheter, de-escalate antibiotic therapy PT OT PDMP PDMP Reviewed: Last Reviewed 12/03/24 09:02 by Franc Antunez MD Attestations 2 Medical Necessity Statement*: Patient requires hospitalization for suicide attempt Diagnoses Major depressive disorder without psychotic features F32.9 Intentional overdose T50.902A Complicated bereavement F43.21 Suicide attempt by drug overdose T50.902A Suicidal behavior with attempted self-injury T14.91XA Depression F32.A Acute hypoxic respiratory failure J96.01
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
--- NOTE | 2024-12-04 16:20 | PC.NURSE ---
Report was given to Lona james Lanexa in [place]. Phone number is [phone].
[2024-12-04] MEDS: escitalopram 10 mg Tablet PO (16:39)
[2024-12-04] MEDS: pantoprazole 40 mg SDV IVP (16:39)
--- NOTE | 2024-12-04 17:00 | PC.NURSE ---
[facility] ambulance came and picked up the patient at 1700. All patient's belongings were transferred with the patient. Patient was stable while getting loaded into the gurney from the ambulance.
== END 2024-12-04 17:00 | DRG 917 ==
LOC: ER 15:55 → ICU 16:07
PROVIDERS: Admitting Provider Family Medicine; Emergency Provider Family Medicine; PCP Internal Medicine; Visit Provider Family Medicine
DX: T45.0X2A Poisoning by antiallergic and antiemetic drugs, intentional self-harm, initial encounter (principal); J18.9 Pneumonia, unspecified organism; J96.01 Acute respiratory failure with hypoxia; N17.9 Acute kidney failure, unspecified; G93.40 Encephalopathy, unspecified; T39.312A Poisoning by propionic acid derivatives, intentional self-harm, initial encounter; Y92.003 Bedroom of unspecified non-institutional (private) residence as the place of occurrence of the external cause; F32.9 Major depressive disorder, single episode, unspecified; Z63.4 Disappearance and death of family member; E11.9 Type 2 diabetes mellitus without complications; I10 Essential (primary) hypertension; E86.0 Dehydration; Z79.84 Long term (current) use of oral hypoglycemic drugs; Z91.51 Personal history of suicidal behavior
CPT/HCPCS: 36415; 36416; 36600; 51702; 70450; 71045; 76770; 80048; 80051; 80053; 80061; 80306; 80307; 81001; 82009; 82330; 82550; 82803; 82805; 82962; 83036; 83605; 83690; 83735; 83880; 84100; 84145; 84443; 84484; 85025; 86140; 87040; 87070; 87086; 87205; 87637; 92523; 92610; 93005; 94002; 94003; 94799; 96365; 96366; 96367; 96372; 96374; 96376; 97161; 97165; 99291; J1650; J1815; J1940; J2250; J2470; J2543; J3010; J7030; J9999